=== PATIENT | male | born 1950 | race Caucasian/White ===

== ENCOUNTER → 2016-10-29 | Outpatient (CLI) | payer MEDICARE, OTHER ==
--- NOTE | 2016-10-29 10:53 | XR ---
EXAMINATION TYPE: XR chest 2V DATE OF EXAM: 10/29/2016 10:48 AM COMPARISON: April 27, 2016 HISTORY: Shortness of breath TECHNIQUE: Frontal and lateral views of the chest are obtained. FINDINGS: Scattered senescent parenchymal changes noted. Hyperinflation compatible with COPD. No evidence for infiltrate. No evidence for atelectasis. Heart size is stable. Mediastinal structures are stable and grossly unremarkable. No evidence for hilar prominence. Degenerative changes dorsal spine. IMPRESSION: 1. No evidence for acute pulmonary disease.
== END | disposition home or self-care (01) ==
LOC: RADXRMAIN 10:36
PROVIDERS: ATTEND Nurse Practitioner Family
DX: J20.9 Acute bronchitis, unspecified (principal); F17.210 Nicotine dependence, cigarettes, uncomplicated
CPT/HCPCS: 71020

== ENCOUNTER → 2016-12-04 | Outpatient (CLI) | payer MEDICARE ==
--- NOTE | 2016-12-04 14:21 | MR ---
EXAMINATION TYPE: MR lumbar spine wo con DATE OF EXAM: 12/04/2016 1:23 PM COMPARISON: NONE HISTORY: Low back pain and lumbosacral radiculopathy per order. Low back pain radiating into right le g for 6 months per patient. TECHNIQUE: Multiplanar, multisequence imaging of the lumbar spine is performed without IV contrast. FINDINGS: Sagittal images of the lumbar spine show vertebral body heights and alignment to appear sat isfactory. Multilevel disc desiccation is seen with relative sparing of L1-L2 level. There is mild mu ltilevel disc space narrowing with sparing of L1-L2 level. Mild to moderate disc space narrowing L4-L 5 level is seen. Posterior disc herniation effacing anterior thecal sac is noted at this level on sag ittal images. There is increased signal posteriorly consistent with annular tear at L5-S1 level. The conus medullaris is normal in position and signal ending at inferior L1 vertebral body level. Some s cattered small hemangiomas are redemonstrated. Axial images at the T12-L1 level shows mild broad disc bulge and mild facet degenerative changes. The re is mild effacement anterior thecal sac on axial image 28. Bilateral neural foramina are felt paten t. Axial images at the L1-L2 level show mild facet degenerative changes bilaterally otherwise are felt w ithin normal limits. Axial images at L2-L3 level show mild facet degenerative changes bilaterally. There is mild to modera te broad-based posterior disc protrusion. This effaces the anterior thecal sac with mild to moderate right as well as mild left-sided neural foraminal narrowing. Some encroachment on right L2 nerve is s uspected along the posterior aspect due to facet arthropathy seen best on sagittal image 10. Axial images at the L3-L4 level show mild broad disc bulge mildly effacing anterior thecal sac. Mild facet degenerative changes and ligamentum flavum hypertrophy are present. Mild bilateral anterior inf erior neural foraminal narrowing is seen. Axial images at L4-L5 level show mild to moderate facet degenerative changes bilaterally. There is mo derate to severe broad disc bulge effacing anterior thecal sac on axial image 7. There is moderate bi lateral anterior inferior neural foraminal narrowing at this level identified. Axial images at L5-S1 level show mild to moderate facet degenerative changes bilaterally. There is br oad-based right paracentral disc protrusion mildly effacing the anterior thecal sac. Bilateral neural foramina are patent. Increased T2 signal right L5 nerve on sagittal image 10 is of uncertain signifi cance. There are few round T2 hyperintense lesions scattered throughout the left kidney felt to reflect simp le cysts. There is some ectasia to the abdominal aorta with eccentric mural thrombus. Mild aneurysmal change measuring up to 3.1 cm in diameter seen on axial image 20. IMPRESSION: Multilevel degenerative changes throughout the lumbar spine as detailed above with most p ronounced spinal canal effacement or stenosis noted at L4-L5 level. Note is made of ectasia with foca l 3.1 cm aneurysm to the abdominal aorta.
== END | disposition home or self-care (01) ==
LOC: RADMRIMAIN 12:33
PROVIDERS: ATTEND Nurse Practitioner Family
DX: M47.816 Spondylosis without myelopathy or radiculopathy, lumbar region (principal)
CPT/HCPCS: 72148

== ENCOUNTER 2017-02-21 12:36 | Inpatient (IN) | payer MEDICARE ==
[2017-02-21] MEDS ORDERED: methylPREDNISolone SOD SUCCI 125 MG/2 ML VIAL IV STA (13:44)
[2017-02-21] MEDS ORDERED: ALBUTEROL NEBULIZED 2.5 MG/3 ML INHALATION STA (13:44)
--- NOTE | 2017-02-21 13:49 | ED ---
General Adult HPI - General Chief complaint: Shortness of Breath Stated complaint: SOB Time Seen by Provider: 02/21/17 13:25 Source: patient, RN notes reviewed Mode of arrival: ambulatory Limitations: no limitations - History of Present Illness Initial comments: This is a 66-year-old male with past medical history significant for COPD who continues to smoke. Patient comes in because he had difficulty breathing last 2 days he states is getting progressively worse. Patient states she is coughing and is positive sputum production. Patient denies any chest pain or palpitations. Patient denies any fever chills. Patient denies any abdominal pain patient denies nausea vomiting diarrhea. Patient denies headache patient denies any focal numbness or weakness. Patient denies any lightheadedness dizziness or near syncopal episode. Patient denies any recent injury or trauma. - Related Data Home Medications Medication Instructions Recorded Confirmed Valsartan [Diovan] 80 mg PO DAILY 04/27/16 02/21/17 ALPRAZolam 1 mg PO HS 04/28/16 02/21/17 Albuterol Sulfate [Proair Hfa] 2 puff INHALATION RT-Q4H PRN 04/28/16 02/21/17 Allergies Allergy/AdvReac Type Severity Reaction Status Date / Time No Known Allergies Allergy Verified 02/21/17 14:28 Review of Systems ROS Statement: Those systems with pertinent positive or pertinent negative responses have been documented in the HPI. ROS Other: All systems not noted in ROS Statement are negative. Past Medical History Past Medical History: COPD, Hypertension Additional Past Medical History / Comment(s): not currently taking BP med History of Any Multi-Drug Resistant Organisms: None Reported Past Surgical History: No Surgical Hx Reported Past Anesthesia/Blood Transfusion Reactions: No Reported Reaction Additional Past Anesthesia/Blood Transfusion Reaction / Comment(s): never had anesthesia, no family problems Past Psychological History: Anxiety Smoking Status: Current every day smoker Past Alcohol Use History: None Reported Past Drug Use History: None Reported - Past Family History Mother Family Medical History: No Reported History Father Family Medical History: Myocardial Infarction ([place]) Additional Family Medical History / Comment(s): of heart attack; pt states he si the oldest male to live in his family General Exam - General Exam Comments Initial Comments: GENERAL: Patient is well-developed and well-nourished. Patient is nontoxic and well- hydrated and is in mild distress. ENT: Neck is soft and supple. No significant lymphadenopathy is noted. Oropharynx is clear. Moist mucous membranes. Neck has full range of motion without eliciting any pain. EYES: The sclera were anicteric and conjunctiva were pink and moist. Extraocular movements were intact and pupils were equal round and reactive to light. Eyelids were unremarkable. PULMONARY: Patient has diffuse expiratory wheezing CARDIOVASCULAR: There is a regular rate and rhythm without any murmurs gallops or rubs. ABDOMEN: Soft and nontender with normal bowel sounds. No palpable organomegaly was noted. There is no palpable pulsatile mass. SKIN: Skin is clear with no lesions or rashes and otherwise unremarkable. NEUROLOGIC: Patient is alert and oriented x3. Cranial nerves II through XII are grossly intact. Motor and sensory are also intact. Normal speech, volume and content. Symmetrical smile. MUSCULOSKELETAL: Normal extremities with adequate strength and full range of motion. No lower extremity swelling or edema. No calf tenderness. LYMPHATICS: No significant lymphadenopathy is noted PSYCHIATRIC: Normal psychiatric evaluation. Normal interpersonal interactions appears functionally intact in deals appropriately with others. No signs of depression. No signs of anxiety. Limitations: no limitations Course Vital Signs 02/21/17 02/21/17 02/21/17 13:24 13:45 14:05 Temperature 97.8 F Pulse Rate 93 96 97 Respiratory 22 Rate Blood Pressure 161/88 O2 Sat by Pulse 94 L Oximetry 02/21/17 02/21/17 14:25 15:12 Temperature Pulse Rate 101 H Respiratory 18 Rate Blood Pressure 134/83 O2 Sat by Pulse 92 L Oximetry Medical Decision Making - Medical Decision Making After 3 consecutive breathing treatments patient was feeling considerably better but still satting in the upper 80s and low 90s on room air. I gave the patient Solu-Medrol as well. Patient states he is feeling considerably better but he still continuing to wheeze. Chest x-ray shows no acute normalities. I spoke with Dr. Culver admitted the patient and I wrote admitting orders. Continue to breathing she was discharged on a floor. - Lab Data Result diagrams: 02/21/17 13:51 02/21/17 13:51 Lab Results 02/21/17 02/21/17 02/21/17 Range/Units 13:51 13:51 13:51 WBC 6.2 (3.8-10.6) k/uL RBC 4.84 (4.30-5.90) m/uL Hgb 14.9 (13.0-17.5) gm/dL Hct 45.2 (39.0-53.0) % MCV 93.4 (80.0-100.0) fL MCH 30.8 (25.0-35.0) pg MCHC 33.0 (31.0-37.0) g/dL RDW 14.4 (11.5-15.5) % Plt Count 247 (150-450) k/uL Neutrophils % 54 % Lymphocytes % 26 % Monocytes % 7 % Eosinophils % 11 % Basophils % 1 % Neutrophils # 3.3 (1.3-7.7) k/uL Lymphocytes # 1.6 (1.0-4.8) k/uL Monocytes # 0.4 (0-1.0) k/uL Eosinophils # 0.7 (0-0.7) k/uL Basophils # 0.1 (0-0.2) k/uL PT (9.0-12.0) sec INR (<1.1) APTT (22.0-30.0) sec Sodium 141 (137-145) mmol/L Potassium 4.4 (3.5-5.1) mmol/L Chloride 107 (98-107) mmol/L Carbon Dioxide 25 (22-30) mmol/L Anion Gap 9 mmol/L BUN 17 (9-20) mg/dL Creatinine 0.94 (0.66-1.25) mg/dL Est GFR (MDRD) Af Amer >60 (>60 ml/min/1.73 sqM) Est GFR (MDRD) Non-Af >60 (>60 ml/min/1.73 sqM) Glucose 89 (74-99) mg/dL Calcium 9.4 (8.4-10.2) mg/dL Magnesium 2.3 (1.6-2.3) mg/dL Total Bilirubin 0.8 (0.2-1.3) mg/dL AST 25 (17-59) U/L ALT 33 (21-72) U/L Alkaline Phosphatase 106 (38-126) U/L Total Creatine Kinase 88 (55-170) U/L CK-MB (CK-2) 1.5 (0.0-2.4) ng/mL CK-MB (CK-2) Rel Index 1.7 Troponin I <0.012 (0.000-0.034) ng/mL Total Protein 7.4 (6.3-8.2) g/dL Albumin 4.1 (3.5-5.0) g/dL 02/21/17 Range/Units 13:51 WBC (3.8-10.6) k/uL RBC (4.30-5.90) m/uL Hgb (13.0-17.5) gm/dL Hct (39.0-53.0) % MCV (80.0-100.0) fL MCH (25.0-35.0) pg MCHC (31.0-37.0) g/dL RDW (11.5-15.5) % Plt Count (150-450) k/uL Neutrophils % % Lymphocytes % % Monocytes % % Eosinophils % % Basophils % % Neutrophils # (1.3-7.7) k/uL Lymphocytes # (1.0-4.8) k/uL Monocytes # (0-1.0) k/uL Eosinophils # (0-0.7) k/uL Basophils # (0-0.2) k/uL PT 10.7 (9.0-12.0) sec INR 1.1 (<1.1) APTT 26.9 (22.0-30.0) sec Sodium (137-145) mmol/L Potassium (3.5-5.1) mmol/L Chloride (98-107) mmol/L Carbon Dioxide (22-30) mmol/L Anion Gap mmol/L BUN (9-20) mg/dL Creatinine (0.66-1.25) mg/dL Est GFR (MDRD) Af Amer (>60 ml/min/1.73 sqM) Est GFR (MDRD) Non-Af (>60 ml/min/1.73 sqM) Glucose (74-99) mg/dL Calcium (8.4-10.2) mg/dL Magnesium (1.6-2.3) mg/dL Total Bilirubin (0.2-1.3) mg/dL AST (17-59) U/L ALT (21-72) U/L Alkaline Phosphatase (38-126) U/L Total Creatine Kinase (55-170) U/L CK-MB (CK-2) (0.0-2.4) ng/mL CK-MB (CK-2) Rel Index Troponin I (0.000-0.034) ng/mL Total Protein (6.3-8.2) g/dL Albumin (3.5-5.0) g/dL Critical Care Time Critical Care Time: Yes Total Critical Care Time: 35 Disposition Clinical Impression: COPD with acute exacerbation Disposition: ADMITTED IP TO THIS [facility] Time of Disposition: 15:25
[2017-02-21 14:11] LABS: Basophils # (A) 0.1 k/uL (0-0.2); Basophils % (A) 1 %; CH 31.5; CHCM 33.9; Eosinophils # (A) 0.7 k/uL (0-0.7); Eosinophils % (A) 11 %; HCT 45.2 % (39.0-53.0); HDW 2.66; HGB 14.9 gm/dL (13.0-17.5); Luc # (Auto) 0.14; Luc % (Auto) 2; Lymphocytes # (A) 1.6 k/uL (1.0-4.8); Lymphocytes % (A) 26 %; MCH 30.8 pg (25.0-35.0); MCV 93.4 fL (80.0-100.0); Mean Platelet Volume 7.5; Monocytes # (A) 0.4 k/uL (0-1.0); Monocytes % (A) 7 %; Neutrophils # (A) 3.3 k/uL (1.3-7.7); Neutrophils % (A) 54 %; RBC 4.84 m/uL (4.30-5.90); RDW 14.4 % (11.5-15.5); WBC 6.2 k/uL (3.8-10.6); WBC (Perox) 6.07
[2017-02-21 14:18] LABS: ALT 33 U/L (21-72); AST 25 U/L (17-59); Alkaline Phosphatase 106 U/L (38-126); Anion Gap 9 mmol/L; Blood Urea Nitrogen 17 mg/dL (9-20); Calcium 9.4 mg/dL (8.4-10.2); Carbon Dioxide 25 mmol/L (22-30); Chloride 107 mmol/L (98-107); Glucose 89 mg/dL (74-99); Magnesium 2.3 mg/dL (1.6-2.3); Non-African American GFR(MDRD) >60 (>60 ml/min/1.73 sqM); Potassium 4.4 mmol/L (3.5-5.1); Sodium 141 mmol/L (137-145); Total Bilirubin 0.8 mg/dL (0.2-1.3); Total Protein 7.4 g/dL (6.3-8.2)
[2017-02-21 14:20] LABS: INR 1.1 (<1.1); Partial Thromboplastin Time 26.9 sec (22.0-30.0); Prothrombin Time 10.7 sec (9.0-12.0)
[2017-02-21 14:29] LABS: Creatine Kinase 88 U/L (55-170)
[2017-02-21 14:42] LABS: Creatine Kinase MB 1.5 ng/mL (0.0-2.4); Troponin I <0.012 ng/mL (0.000-0.034)
--- NOTE | 2017-02-21 15:16 | XR ---
EXAMINATION TYPE: XR chest 2V DATE OF EXAM: 02/21/2017 3:13 PM COMPARISON: 10/29/2016 HISTORY: Shortness of breath TECHNIQUE: Frontal and lateral views of the chest are obtained. FINDINGS: Scattered senescent parenchymal changes noted. Hyperinflation compatible with COPD. No evidence for infiltrate. No evidence for atelectasis. Heart size is stable. Mediastinal structures are stable and grossly unremarkable. No evidence for hilar prominence. Degenerative changes dorsal spine. IMPRESSION: 1. No evidence for acute pulmonary disease.
[2017-02-21] MEDS ORDERED: IPRATROPIUM-ALBUTEROL 3 ML NEB INHALATION PRN (15:26)
[2017-02-21 17:05] LABS: Glucose,Whole Blood 217 mg/dL (75-99)
[2017-02-21 17:21] VITALS: BMI 24.4
[2017-02-21] MEDS ORDERED: ALBUTEROL NEBULIZED 2.5 MG/3 ML INHALATION PRN (17:31)
[2017-02-21] MEDS: INSULIN LISPRO (humaLOG) 300 UNIT/3 ML VIAL SQ SCH ×2 (17:50→21:53)
[2017-02-21 20:57] LABS: Glucose,Whole Blood 181 mg/dL (75-99)
[2017-02-21 21:15] LABS: Hemoglobin A1C 5.7 % (4.2-6.1)
[2017-02-21] MEDS: ALPRAZolam 0.5 MG TAB PO SCH (21:53)
[2017-02-21] MEDS: methylPREDNISolone SOD SUCCI 125 MG/2 ML VIAL IV SCH (23:08)
[2017-02-22] MEDS: methylPREDNISolone SOD SUCCI 125 MG/2 ML VIAL IV SCH ×4 (06:29→23:36)
[2017-02-22] MEDS: INSULIN LISPRO (humaLOG) 300 UNIT/3 ML VIAL SQ SCH ×4 (07:57→21:13)
[2017-02-22] MEDS: VALSARTAN 80 MG TAB PO SCH (07:57)
[2017-02-22] MEDS: NICOTINE 21MG/24HR PATCH TRANSDERM SCH (07:59)
[2017-02-22 08:02] LABS: Glucose,Whole Blood 171 mg/dL (75-99)
[2017-02-22] MEDS: SYMBICORT 160-4.5 MCG INHALER INHALATION SCH ×2 (09:14→20:41)
[2017-02-22 11:35] LABS: Glucose,Whole Blood 142 mg/dL (75-99)
--- NOTE | 2017-02-22 15:21 | P.HPIM ---
History of Present Illness H&P Date: 02/22/17 Chief Complaint: Shortness of breath Patient is a 66-year-old male, patient of Dr. Culver in the outpatient setting, with medical history significant for COPD, hypertension, and nicotine dependence. Patient presented to the emergency department with chief complaint of difficulty breathing increasing over the last 2 days associated with productive cough. No history of recent illness, fevers, chills , chest pain, nausea, vomiting, abdominal pain, diarrhea, constipation. Chest x -ray without evidence of acute cardiopulmonary process. In the emergency department, patient was given 3 consecutive breathing treatments but still had oxygen saturations in the upper 80s and low 90s on room air. Patient was started on Solu-Medrol and admitted to the medical floor for IV steroids and oxygen supplementation. Upon examination, patient reports improvement in breathing. Patient complains of minimal productive cough. Oxygen saturation 94% on room air. Afebrile. Hemodynamically stable. Past Medical History Past Medical History: COPD, Hypertension Additional Past Medical History / Comment(s): not currently taking BP med History of Any Multi-Drug Resistant Organisms: None Reported Past Surgical History: No Surgical Hx Reported Additional Past Surgical History / Comment(s): jaw surgery long time ago Past Anesthesia/Blood Transfusion Reactions: No Reported Reaction Additional Past Anesthesia/Blood Transfusion Reaction / Comment(s): never had anesthesia, no family problems Past Psychological History: Anxiety Smoking Status: Current every day smoker Past Alcohol Use History: None Reported Past Drug Use History: None Reported - Past Family History Mother Family Medical History: No Reported History Father Family Medical History: Myocardial Infarction ([place]) Additional Family Medical History / Comment(s): of heart attack; pt states he si the oldest male to live in his family Medications and Allergies Home Medications Medication Instructions Recorded Confirmed Type Valsartan [Diovan] 80 mg PO DAILY 04/27/16 02/21/17 History ALPRAZolam 1 mg PO HS 04/28/16 02/21/17 History Albuterol Sulfate [Proair Hfa] 2 puff INHALATION RT-Q4H PRN 04/28/16 02/21/17 History Allergies Allergy/AdvReac Type Severity Reaction Status Date / Time No Known Allergies Allergy Verified 02/21/17 17:25 Physical Exam Vitals: Vital Signs Temp Pulse Pulse Resp BP BP Pulse Ox 02/22/17 09:15 94 L 02/22/17 07:00 97.0 F L 83 16 136/93 92 L 02/21/17 23:00 97.4 F L 86 19 99/67 90 L 02/21/17 16:55 97.1 F L 89 16 151/94 94 L 02/21/17 16:35 97.2 F L 88 18 141/100 92 L Intake and Output 02/22/17 02/22/17 02/22/17 06:59 14:59 22:59 Other: # Voids 1 3 GENERAL: Pt awake and alert, well-appearing, well-nourished, and in no acute distress. HEAD: Atraumatic, normocephalic. EYES: Pupils equal, round, and reactive to light, extraocular movements intact, sclera anicteric, conjunctiva are normal. ENT:Moist mucous membranes. NECK: Supple without lymphadenopathy or JVD. LUNGS: Breath sounds diminished with faint expiratory wheezing to auscultation bilaterally. HEART: Heart S1, S2, no S3 or S4. Regular rate and rhythm. No murmurs, rubs or gallops. ABDOMEN: Soft, nontender, nondistended, normoactive bowel sounds. No guarding, no rebound. No masses or organomegaly appreciated. EXTREMITIES: 2+ peripheral pulses. No edema. No calf tenderness. NEUROLOGICAL: Pt oriented x 3. No focal deficits noted. Strength and sensation grossly intact. PSYCH: Normal mood, normal affect. SKIN: Warm, dry, intact. Normal turgor. No rashes or lesions. Results CBC & Chem 7: 02/21/17 13:51 02/21/17 13:51 Labs: Abnormal Lab Results - Last 24 Hours (Table) 02/21/17 02/21/17 02/22/17 Range/Units 17:03 20:55 07:33 POC Glucose (mg/dL) 217 H 181 H 171 H (75-99) mg/dL 02/22/17 Range/Units 11:16 POC Glucose (mg/dL) 142 H (75-99) mg/dL Chest x-ray: report reviewed Thrombosis Risk Factor Assmnt - DVT/VTE Prophylaxis DVT/VTE Prophylaxis: Pharmacologic Prophylaxis ordered - Choose All That Apply Each Factor Represents 1 point: Abnormal pulmonary function (COPD) Each Risk Factor Represents 2 Points: Age 61-74 years Thrombosis Risk Factor Assessment Total Risk Factor Score: 3 Thrombosis Risk Factor Assessment Level: Moderate Risk Assessment and Plan Plan: Impression and plan: 1. Acute exacerbation of COPD. Chest x-ray without evidence of acute cardiopulmonary process. Continue nebulized updraft treatments, continue IV steroids, continue Pulmicort, continue supplemental oxygen to keep oxygen saturation greater than 92%. 2. Hypertension. Continue Diovan. 3. Nicotine dependence. Continue nicotine patch. Smoking cessation encouraged. Continue to monitor patient. Continue current medications. Continue DVT prophylaxis. Possible discharge in next 24 hours. The above impression and plan have been discussed and directed by Dr. Arriaza. Román WRIGHT acting as scribe for Dr. Arriaza.
[2017-02-22 17:00] LABS: Glucose,Whole Blood 139 mg/dL (75-99)
[2017-02-22 21:05] LABS: Glucose,Whole Blood 139 mg/dL (75-99)
[2017-02-22] MEDS: ALPRAZolam 0.5 MG TAB PO SCH (21:17)
[2017-02-23] MEDS: methylPREDNISolone SOD SUCCI 125 MG/2 ML VIAL IV SCH ×2 (06:26→11:05)
[2017-02-23 07:34] LABS: Glucose,Whole Blood 117 mg/dL (75-99)
[2017-02-23] MEDS: INSULIN LISPRO (humaLOG) 300 UNIT/3 ML VIAL SQ SCH ×2 (07:40→11:54)
[2017-02-23] MEDS: NICOTINE 21MG/24HR PATCH TRANSDERM SCH (07:40)
[2017-02-23] MEDS: VALSARTAN 80 MG TAB PO SCH (07:40)
[2017-02-23 08:02] VITALS: BP 134/96; PULSE 79; RESP 18; TEMP 97
[2017-02-23 12:00] LABS: Glucose,Whole Blood 114 mg/dL (75-99)
[2017-02-23] MEDS: SYMBICORT 160-4.5 MCG INHALER INHALATION SCH (12:25)
--- NOTE | 2017-02-23 14:01 | P.DS ---
Providers Date of admission: 02/21/17 15:26 Expected date of discharge: 02/23/17 Attending physician: Bernardo Arriaza Consults: none Primary care physician: Eris Culver Hospital Course: General: [Patient awake, alert and oriented times 3. Patient in no acute distress.] HEENT: [PERRL. EOMI. No pharyngeal erythema or exudate.] Neck: [No adenopathy.] Cardiac: [Heart regular in rate and rhythm. No S3. No S4. No clicks, rubs. No murmur.] Lungs: [Clear to auscultation bilaterally, right basilar crackles Abdomen: [No mass. No organomegaly. Bowel sounds presnt and normoactive in all 4 quadrants.] Extremes: [No edema no cyanosis no claudication normal pulses] : [] Musculoskeletal: [No joint erythema, edema or tenderness.] Skin: [No rash.] Neurologic: [No lateralizing deficits. CN II - XII grossly intact.] Lymphatic: [No adenopathy.] Patient Condition at Discharge: Good Plan - Discharge Summary New Discharge Prescriptions: Budesonide-Formot 160-4.5 Mcg [Symbicort 160-4.5 Mcg Inhaler] 2 puff INHALATION RT-BID #1 vial predniSONE 0 mg PO DIRECTED #30 tab Discharge Medication List Valsartan [Diovan] 80 mg PO DAILY 04/27/16 [History] ALPRAZolam 1 mg PO HS 04/28/16 [History] Albuterol Sulfate [Proair Hfa] 2 puff INHALATION RT-Q4H PRN 04/28/16 [History] Budesonide-Formot 160-4.5 Mcg [Symbicort 160-4.5 Mcg Inhaler] 2 puff INHALATION RT-BID #1 vial 02/22/17 [Rx] predniSONE 0 mg PO DIRECTED #30 tab 02/22/17 [Rx] Follow up Appointment(s)/Referral(s): Eris Culver MD [Primary Care Provider] - 1-2 days Patient Instructions/Handouts: How to Stop Smoking (DC), COPD (Chronic Obstructive Pulmonary Disease) (DC) Discharge Disposition: HOME SELF-CARE
== END 2017-02-23 14:15 | disposition home or self-care (01) | DRG 192 ==
LOC: EC 12:36 → 4MS4W 15:26
PROVIDERS: ADMIT Family Medicine; ATTEND Family Medicine
DX: J44.1 Chronic obstructive pulmonary disease with (acute) exacerbation (principal); I10 Essential (primary) hypertension; F41.9 Anxiety disorder, unspecified; F17.200 Nicotine dependence, unspecified, uncomplicated; Z82.49 Family history of ischemic heart disease and other diseases of the circulatory system; Z79.899 Other long term (current) drug therapy
CPT/HCPCS: 36415; 71020; 80053; 82550; 82553; 83036; 83735; 84484; 85025; 85610; 85730; 87040; 94640; 94644; 96374; 99291

== ENCOUNTER 2017-04-02 08:53 | Day surgery (SDC) | payer MEDICARE ==
[2017-03-28 13:10] VITALS: BMI 24.4
[~2017-04-02 08:53] MED LIST: LACTATED RINGERS 1,000 ML IV SCH; LIDOCAINE 1% 20 ML VIAL (10MG/ML) FOR IV START INTRADERMA PRN; ONDANSETRON 4 MG/2 ML VIAL IVP PRN
[2017-04-02] MEDS: CYCLOPENTOLATE 1% OPHTH SOLN 2 ML BTL OP ONE ×3 (09:32→09:53)
[2017-04-02 09:33] VITALS: TEMP 98.3
[2017-04-02] MEDS: FLURBIPROFEN 0.03% OPHTH DROPS 2.5 ML BTL OP ONE ×3 (09:35→09:57)
[2017-04-02] MEDS: PHENYLEPHRINE 10% OPHTH DROPS 5 ML BTL OP ONE ×3 (09:39→10:00)
[2017-04-02] MEDS ORDERED: LIDOCAINE 1% INJ 10MG/ML (20 ML MDV) ONE (10:20)
[2017-04-02] MEDS ORDERED: PROPOFOL 10 MG/ML 20 ML VIAL IV ONE (10:20)
[2017-04-02] MEDS ORDERED: EPINEPHrine (PF) 0.5 ML in BALANCED SALT IRRIG SOLN COMB2 500 ML IRRIGATION ONE (10:27)
[2017-04-02] MEDS ORDERED: BALANCED SALT IRRIG SOLN COMB2 15 ML IRRIG.SOLN IRRIGATION ONE (10:29)
[2017-04-02] MEDS ORDERED: HYALURONATE SODIUM INTRAOCULAR 1 EACH SYRINGE (10MG/ML) INTRAOCULA ONE (10:30)
--- NOTE | 2017-04-02 10:45 | P.OP ---
Date of Procedure: 04/02/17 Preoperative Diagnosis: Postoperative Diagnosis: Procedure(s) Performed: PREOPERATIVE DIAGNOSIS: Cataract, right eye. POSTOPERATIVE DIAGNOSIS: Cataract, right eye. OPERATION: Phacoemulsification cataract, right eye. DESCRIPTION OF PROCEDURE: The patient was taken to the preoperative holding area. Intravenous Propofol was given so as to bring about adequate sedation. The following mixture was given for local anesthesia: 5 mL of 2% lidocaine, 5 mL of 0.75% Marcaine, and 1 mL of Wydase. Approximately 4 mL was injected in the retrobulbar space of the surgical eye. Additional 1 mL was then directed to the temporal area of the surgical eye. This was performed to allow adequate neurological block of the facial muscles. The patient was revived and then taken into the operative room. The patient was prepped and draped in the usual sterile manner for the operative eye. A lid speculum was put into position. The conjunctiva was resected back from the limbus in the 12 o'clock position. Bleeding was controlled with electrocautery. A #69 blade was then used and a half-thickness scleral incision approximately 1-mm posterior to the limbus was made on bare sclera. This was shelved in the clear cornea using a crescent knife. Next a 15-degree blade was used to make a stab incision at the 3 o' clock position at the corneolimbal interface. Keratome blade was then used and the superior wound was extended into the anterior chamber. Viscoelastic was injected into the anterior chamber and to maintain its form. Next, a cystotome was used and a continuous anterior capsulotomy was made without difficulty. Hydrodissection using a blunt cannula and BSS was performed. Phaco probe was then employed and a groove extending from 12 to 6 o'clock in the lens was created. A Mitch wand was used through the stab incision so as to perform a divide and conquer technique. Next an irrigation aspiration probe was utilized and any residual cortex was removed from the eye. Again, viscoelastic was injected into the anterior chamber. An Jose Daniel posterior chamber lens implant was placed in the cartridge and injected into the anterior chamber without difficulty. The xMattersey hook was utilized to spin the lens into position and this was again performed without any difficulty. The irrigation and aspiration probe was again employed and any residual viscoelastic was removed from the eye. Then BSS was injected into the limbal stab incision and the anterior chamber re-inflated. The conjunctiva was reapproximated using electrocautery. One drop of 0.25% Timoptic was placed over the corneal along with TobraDex ophthalmic ointment. Two sterile patches and a Richter eye shield were taped into position. The patient was transported to the recovery room in stable condition. Implants: Pathology: none sent Condition: stable Disposition: same day Indications for Procedure: Operative Findings: Description of Procedure:
[2017-04-02 11:04] VITALS: RESP 16
[2017-04-02 11:06] VITALS: BP 164/89; PULSE 66
[2017-04-02] MEDS ORDERED: TIMOLOL 0.5% OPHTH SOLN (PF) 0.2 ML DROPERETTE OP ONE (23:00)
[2017-04-02] MEDS ORDERED: BUPIVACAINE (PF) 0.75% 5 ML, LIDOCAINE 4% (PF) 5 ML, HYALURONIDASE, HUMAN RECOMB 150 UNIT MISCELLANE ONE ×3 (23:00)
[2017-04-02] MEDS ORDERED: GENTAMICIN/PREDNISOL AC OPHTH OINT 3.5GM OPHTHALMIC ONE (23:00)
== END 2017-04-02 11:22 | disposition home or self-care (01) ==
LOC: OR 08:53
PROVIDERS: ATTEND Ophthalmology
DX: H26.9 Unspecified cataract (principal); I10 Essential (primary) hypertension; F41.9 Anxiety disorder, unspecified; J44.9 Chronic obstructive pulmonary disease, unspecified; F17.200 Nicotine dependence, unspecified, uncomplicated; Z79.51 Long term (current) use of inhaled steroids; Z79.899 Other long term (current) drug therapy
CPT/HCPCS: 66984; V2632; J2001 ×2; J3470; J0171; J2704

== ENCOUNTER 2017-05-21 09:53 | Day surgery (SDC) | payer MEDICARE ==
[2017-05-14 16:29] VITALS: BMI 24.4
[~2017-05-21 09:53] MED LIST changes: -LIDOCAINE 1% 20 ML VIAL (10MG/ML) FOR IV START INTRADERMA PRN; -ONDANSETRON 4 MG/2 ML VIAL IVP PRN
[2017-05-21] MEDS: CYCLOPENTOLATE 1% OPHTH SOLN 2 ML BTL OP ONE ×3 (10:28→10:46)
[2017-05-21] MEDS: FLURBIPROFEN 0.03% OPHTH DROPS 2.5 ML BTL OP ONE ×3 (10:31→10:49)
[2017-05-21] MEDS: PHENYLEPHRINE 10% OPHTH DROPS 5 ML BTL OP ONE ×3 (10:34→10:53)
[2017-05-21 10:50] VITALS: TEMP 96.8
[2017-05-21] MEDS ORDERED: BALANCED SALT IRRIG SOLN COMB2 15 ML IRRIG.SOLN IRRIGATION ONE (11:24)
[2017-05-21] MEDS ORDERED: HYALURONATE SODIUM INTRAOCULAR 1 EACH SYRINGE (10MG/ML) INTRAOCULA ONE (11:24)
[2017-05-21] MEDS ORDERED: MIDAZOLAM 2 MG/2 ML VIAL ONE (11:25)
[2017-05-21] MEDS ORDERED: PROPOFOL 10 MG/ML 20 ML VIAL IV ONE (11:25)
[2017-05-21] MEDS ORDERED: fentaNYL (PF) 50 MCG/ML 2 ML AMP ONE (11:25)
[2017-05-21] MEDS ORDERED: EPINEPHrine (PF) 0.5 ML in BALANCED SALT IRRIG SOLN COMB2 500 ML IRRIGATION ONE (11:28)
--- NOTE | 2017-05-21 11:46 | P.OP ---
Date of Procedure: 05/21/17 Preoperative Diagnosis: Postoperative Diagnosis: Procedure(s) Performed: PREOPERATIVE DIAGNOSIS: Cataract, left eye. POSTOPERATIVE DIAGNOSIS: Cataract, left eye. OPERATION: Phacoemulsification cataract, left eye. DESCRIPTION OF PROCEDURE: The patient was taken to the preoperative holding area. Intravenous Propofol was given so as to bring about adequate sedation. The following mixture was given for local anesthesia: 5 mL of 2% lidocaine, 5 mL of 0.75% Marcaine, and 1 mL of Wydase. Approximately 4 mL was injected in the retrobulbar space of the surgical eye. Additional 1 mL was then directed to the temporal area of the surgical eye. This was performed to allow adequate neurological block of the facial muscles. The patient was revived and then taken into the operative room. The patient was prepped and draped in the usual sterile manner for the operative eye. A lid speculum was put into position. The conjunctiva was resected back from the limbus in the 12 o'clock position. Bleeding was controlled with electrocautery. A #69 blade was then used and a half-thickness scleral incision approximately 1-mm posterior to the limbus was made on bare sclera. This was shelved in the clear cornea using a crescent knife. Next a 15-degree blade was used to make a stab incision at the 3 o' clock position at the corneolimbal interface. Keratome blade was then used and the superior wound was extended into the anterior chamber. Viscoelastic was injected into the anterior chamber and to maintain its form. Next, a cystotome was used and a continuous anterior capsulotomy was made without difficulty. Hydrodissection using a blunt cannula and BSS was performed. Phaco probe was then employed and a groove extending from 12 to 6 o'clock in the lens was created. A Mitch wand was used through the stab incision so as to perform a divide and conquer technique. Next an irrigation aspiration probe was utilized and any residual cortex was removed from the eye. Again, viscoelastic was injected into the anterior chamber. An Jose Daniel posterior chamber lens implant was placed in the cartridge and injected into the anterior chamber without difficulty. The [place] hook was utilized to spin the lens into position and this was again performed without any difficulty. The irrigation and aspiration probe was again employed and any residual viscoelastic was removed from the eye. Then BSS was injected into the limbal stab incision and the anterior chamber re-inflated. The conjunctiva was reapproximated using electrocautery. One drop of 0.25% Timoptic was placed over the corneal along with TobraDex ophthalmic ointment. Two sterile patches and a Richter eye shield were taped into position. The patient was transported to the recovery room in stable condition. Implants: Pathology: none sent Condition: stable Disposition: same day Indications for Procedure: Operative Findings: Description of Procedure:
[2017-05-21 12:17] VITALS: BP 158/96; PULSE 69; RESP 18
[2017-05-21] MEDS ORDERED: BUPIVACAINE (PF) 0.75% 5 ML, LIDOCAINE 4% (PF) 5 ML, HYALURONIDASE, HUMAN RECOMB 150 UNIT MISCELLANE ONE ×3 (23:00)
[2017-05-21] MEDS ORDERED: GENTAMICIN/PREDNISOL AC OPHTH OINT 3.5GM OPHTHALMIC ONE (23:00)
[2017-05-21] MEDS ORDERED: TIMOLOL 0.5% OPHTH SOLN (PF) 0.2 ML DROPERETTE OP ONE (23:00)
== END 2017-05-21 12:28 | disposition home or self-care (01) ==
LOC: OR 09:53
PROVIDERS: ATTEND Ophthalmology
DX: H26.9 Unspecified cataract (principal); I10 Essential (primary) hypertension; J44.9 Chronic obstructive pulmonary disease, unspecified; F17.200 Nicotine dependence, unspecified, uncomplicated; F39 Unspecified mood [affective] disorder; Z79.51 Long term (current) use of inhaled steroids; Z79.899 Other long term (current) drug therapy
CPT/HCPCS: 66984; V2632; J2001; J2250; J3470; J0171; J3010; J2704

== ENCOUNTER 2017-05-21 15:01 | Observation (INO) | payer MEDICARE ==
[2017-05-21] MEDS ORDERED: IPRATROPIUM-ALBUTEROL 3 ML NEB INHALATION STA ×2 (15:26→16:40)
--- NOTE | 2017-05-21 15:31 | ED ---
General Adult HPI - General Chief complaint: Shortness of Breath Stated complaint: COPD Time Seen by Provider: 05/21/17 15:18 Source: patient, RN notes reviewed Mode of arrival: wheelchair Limitations: no limitations - History of Present Illness Initial comments: Patient 66-year-old male significant past medical history for COPD, who presents emergency room today with a chief complaint of "COPD exacerbation". Patient doesn't state that he has been feeling increased cough congestion and some tightness over the last 3-4 days. States doing breathing treatments at home. States he was trying follow-up family doctor to get a steroid shot which usually helps him but was unable to make an appointment today. Patient states he did have cataract surgery on the left eye this morning. Patient states after surgery try to 2 breathing treatment at home with little relief of the symptoms. Patient denies any recent fever, chills, back pain, abdominal pain, nausea or vomiting, numbness or tingling, dysuria or hematuria, constipation or diarrhea, headaches or visual changes, or any other complaints. - Related Data Home Medications Medication Instructions Recorded Confirmed Valsartan [Diovan] 80 mg PO DAILY 04/27/16 05/21/17 ALPRAZolam 1 mg PO HS 04/28/16 05/21/17 Albuterol Sulfate [Proair Hfa] 2 puff INHALATION RT-Q4H PRN 04/28/16 05/21/17 Allergies Allergy/AdvReac Type Severity Reaction Status Date / Time No Known Allergies Allergy Verified 05/21/17 15:28 Review of Systems ROS Statement: Those systems with pertinent positive or pertinent negative responses have been documented in the HPI. ROS Other: All systems not noted in ROS Statement are negative. Past Medical History Past Medical History: COPD, Eye Disorder, Hypertension Additional Past Medical History / Comment(s): cataracts History of Any Multi-Drug Resistant Organisms: None Reported Past Surgical History: No Surgical Hx Reported Additional Past Surgical History / Comment(s): jaw surgery. rt/lf cataract sx Past Anesthesia/Blood Transfusion Reactions: No Reported Reaction Additional Past Anesthesia/Blood Transfusion Reaction / Comment(s): , no family problems Past Psychological History: Anxiety Smoking Status: Current every day smoker Past Alcohol Use History: None Reported Past Drug Use History: None Reported - Past Family History Mother Family Medical History: No Reported History Father Family Medical History: Myocardial Infarction ([place]) Additional Family Medical History / Comment(s): of heart attack General Exam - General Exam Comments Initial Comments: General: The patient is awake and alert, in no distress, and does not appear acutely ill. Eye: Pupils are equal, round and reactive to light, extra-ocular movements are intact. No nystagmus. There is normal conjunctiva bilaterally. No signs of icterus. Ears, nose, mouth and throat: There are moist mucous membranes and no oral lesions. Neck: The neck is supple, there is no tenderness or JVD. Cardiovascular: There is a regular rate and rhythm. No murmur, rub or gallop is appreciated. Respiratory: Decreased lung sounds bilaterally with mild expiratory wheeze. respirations are non-labored, breath sounds are equal. No stridor, rales, or rhonchi. Musculoskeletal: Normal ROM, no tenderness. Strength 5/5. Sensation intact. Pulses equal bilaterally 2+. Neurological: A&O x 3. CN II-XII intact, There are no obvious motor or sensory deficits. Coordination appears grossly intact. Speech is normal. Skin: Skin is warm and dry and no rashes or lesions are noted. Psychiatric: Cooperative, appropriate mood & affect, normal judgment. Limitations: no limitations Course Vital Signs 05/21/17 05/21/17 05/21/17 15:05 15:41 15:52 Temperature 97.2 F L Pulse Rate 72 73 77 Respiratory 16 Rate Blood Pressure 184/97 O2 Sat by Pulse 95 Oximetry 05/21/17 05/21/17 05/21/17 16:37 17:16 17:30 Temperature Pulse Rate 72 77 Respiratory Rate Blood Pressure O2 Sat by Pulse 96 Oximetry Medical Decision Making - Medical Decision Making 66-year-old male presenting to the emergency room for COPD exacerbation. Did have Surgery this morning. Patient's shot dropper Dr. Steen was callled and confirmed that steriods are NOT contraindicated after his surgery. Patient says x-rays reviewed and shows no acute abnormalities. Patient had multiple breathing treatments here in the emergency room. Does admit to some improvement. Patient will be admitted to the hospital for COPD exacerbation continuing treatments and IV steroids. - Lab Data Result diagrams: 05/21/17 16:13 05/21/17 16:13 Lab Results 05/21/17 05/21/17 Range/Units 16:13 16:13 WBC 6.0 (3.8-10.6) k/uL RBC 4.59 (4.30-5.90) m/uL Hgb 14.5 (13.0-17.5) gm/dL Hct 41.7 (39.0-53.0) % MCV 90.7 (80.0-100.0) fL MCH 31.5 (25.0-35.0) pg MCHC 34.8 (31.0-37.0) g/dL RDW 13.9 (11.5-15.5) % Plt Count 190 (150-450) k/uL Neutrophils % 52 % Lymphocytes % 29 % Monocytes % 6 % Eosinophils % 11 % Basophils % 1 % Neutrophils # 3.1 (1.3-7.7) k/uL Lymphocytes # 1.7 (1.0-4.8) k/uL Monocytes # 0.4 (0-1.0) k/uL Eosinophils # 0.6 (0-0.7) k/uL Basophils # 0.0 (0-0.2) k/uL Sodium 142 (137-145) mmol/L Potassium 4.2 (3.5-5.1) mmol/L Chloride 108 H (98-107) mmol/L Carbon Dioxide 25 (22-30) mmol/L Anion Gap 9 mmol/L BUN 17 (9-20) mg/dL Creatinine 0.99 (0.66-1.25) mg/dL Est GFR (MDRD) Af Amer >60 (>60 ml/min/1.73 sqM) Est GFR (MDRD) Non-Af >60 (>60 ml/min/1.73 sqM) Glucose 78 (74-99) mg/dL Calcium 9.2 (8.4-10.2) mg/dL Magnesium 2.0 (1.6-2.3) mg/dL Total Bilirubin 0.6 (0.2-1.3) mg/dL AST 23 (17-59) U/L ALT 40 (21-72) U/L Alkaline Phosphatase 96 (38-126) U/L Total Protein 6.9 (6.3-8.2) g/dL Albumin 4.1 (3.5-5.0) g/dL Disposition Clinical Impression: COPD exacerbation Disposition: ADMITTED IP TO THIS HOSP Condition: Stable Referrals: Eris Culver MD [Primary Care Provider] - 1-2 days Time of Disposition: 17:34
[2017-05-21] MEDS ORDERED: methylPREDNISolone SOD SUCCI 125 MG/2 ML VIAL IV STA (15:39)
[2017-05-21 16:29] LABS: Basophils % (A) 1 %; CH 30.6; CHCM 33.9; Eosinophils # (A) 0.6 k/uL (0-0.7); Eosinophils % (A) 11 %; HCT 41.7 % (39.0-53.0); HDW 2.84; HGB 14.5 gm/dL (13.0-17.5); Luc # (Auto) 0.15; Luc % (Auto) 3; Lymphocytes # (A) 1.7 k/uL (1.0-4.8); Lymphocytes % (A) 29 %; MCH 31.5 pg (25.0-35.0); MCHC 34.8 g/dL (31.0-37.0); MCV 90.7 fL (80.0-100.0); Mean Platelet Volume 7.5; Monocytes # (A) 0.4 k/uL (0-1.0); Monocytes % (A) 6 %; Neutrophils # (A) 3.1 k/uL (1.3-7.7); Neutrophils % (A) 52 %; RBC 4.59 m/uL (4.30-5.90); RDW 13.9 % (11.5-15.5); WBC (Perox) 5.84
--- NOTE | 2017-05-21 16:29 | XR ---
EXAMINATION TYPE: XR chest 2V DATE OF EXAM: 05/21/2017 COMPARISON: Chest x-ray February 21, 2017. HISTORY: History of tobacco use and COPD with shortness of breath TECHNIQUE: Frontal and lateral views of the chest are obtained. FINDINGS: Underlying emphysematous change is redemonstrated. There is no focal air space opacity, pl eural effusion, or pneumothorax seen. The cardiac silhouette size is within normal limits. Ectatic t horacic aorta is redemonstrated The osseous structures are demineralized. IMPRESSION: Chronic emphysematous change without acute pulmonary process. No significant change from prior.
[2017-05-21 16:42] LABS: ALT 40 U/L (21-72); AST 23 U/L (17-59); Alkaline Phosphatase 96 U/L (38-126); Anion Gap 9 mmol/L; Blood Urea Nitrogen 17 mg/dL (9-20); Calcium 9.2 mg/dL (8.4-10.2); Carbon Dioxide 25 mmol/L (22-30); Chloride 108 mmol/L (98-107); Glucose 78 mg/dL (74-99); Non-African American GFR(MDRD) >60 (>60 ml/min/1.73 sqM); Potassium 4.2 mmol/L (3.5-5.1); Sodium 142 mmol/L (137-145); Total Bilirubin 0.6 mg/dL (0.2-1.3); Total Protein 6.9 g/dL (6.3-8.2)
[2017-05-21] MEDS ORDERED: SODIUM CHLORIDE 0.9% 1,000 ML IV ONE (17:35)
[2017-05-21] MEDS: IPRATROPIUM-ALBUTEROL 3 ML NEB INHALATION PRN (19:14)
[2017-05-21 20:27] LABS: Hemoglobin A1C 5.6 % (4.2-6.1)
[2017-05-21 20:55] LABS: Glucose,Whole Blood 128 mg/dL (75-99)
[2017-05-21] MEDS: ALPRAZolam 0.5 MG TAB PO SCH (21:27)
[2017-05-21] MEDS: methylPREDNISolone SOD SUCCI 125 MG/2 ML VIAL IV SCH (21:27)
[2017-05-21] MEDS: INSULIN LISPRO (humaLOG) 300 UNIT/3 ML VIAL SQ SCH (21:29)
[2017-05-22] MEDS: methylPREDNISolone SOD SUCCI 125 MG/2 ML VIAL IV SCH ×5 (00:52→23:15)
[2017-05-22 07:01] LABS: Glucose,Whole Blood 174 mg/dL (75-99)
[2017-05-22] MEDS: IPRATROPIUM-ALBUTEROL 3 ML NEB INHALATION PRN ×4 (07:17→21:16)
[2017-05-22] MEDS: INSULIN LISPRO (humaLOG) 300 UNIT/3 ML VIAL SQ SCH ×4 (07:57→21:33)
[2017-05-22] MEDS: VALSARTAN 80 MG TAB PO SCH (07:57)
[2017-05-22 09:17] LABS: Basophils % (A) 0 %; CH 31.1; CHCM 33.1; Eosinophils % (A) 0 %; HCT 42.1 % (39.0-53.0); HDW 2.77; HGB 13.7 gm/dL (13.0-17.5); Luc # (Auto) 0.02; Luc % (Auto) 0; Lymphocytes # (A) 0.9 k/uL (1.0-4.8); Lymphocytes % (A) 8 %; MCH 30.7 pg (25.0-35.0); MCHC 32.4 g/dL (31.0-37.0); MCV 94.7 fL (80.0-100.0); Mean Platelet Volume 8.8; Monocytes # (A) 0.1 k/uL (0-1.0); Monocytes % (A) 1 %; Neutrophils # (A) 9.5 k/uL (1.3-7.7); Neutrophils % (A) 91 %; RBC 4.45 m/uL (4.30-5.90); RDW 14.6 % (11.5-15.5); WBC 10.5 k/uL (3.8-10.6)
[2017-05-22 09:32] LABS: Anion Gap 10 mmol/L; Blood Urea Nitrogen 25 mg/dL (9-20); Carbon Dioxide 23 mmol/L (22-30); Chloride 105 mmol/L (98-107); Glucose 241 mg/dL (74-99); Non-African American GFR(MDRD) >60 (>60 ml/min/1.73 sqM); Potassium 4.3 mmol/L (3.5-5.1); Sodium 138 mmol/L (137-145)
[2017-05-22 11:40] LABS: Glucose,Whole Blood 170 mg/dL (75-99)
--- NOTE | 2017-05-22 14:46 | P.HPIM ---
History of Present Illness H&P Date: 05/22/17 Chief Complaint: Acute exacerbation chronic COPD, shortness of breath Mr. England is a 66-year-old male with significant past medical history for chronic obstructive pulmonary disease who presented via the emergency room with an acute exacerbation of chronic COPD. Patient has cough congestion tightness over the past 3-4 days. Patient does breathing treatments at home he is not steroid dependent yet not oxygen dependent yet. Patient still smokes. In fact this patient had cataract surgery on his left eye yesterday morning prior to his admission via the emergency room. Denies fever or chills denies back pain denies abdominal pain denies nausea vomiting numbness or tingling dysuria or hematuria denies constipation headaches or visual disturbances his O2 sats in the emergency room never chacorta above high 80s Review of Systems Constitutional: Reports as per HPI Ears, nose, mouth and throat: Reports as per HPI Cardiovascular: Reports as per HPI, Reports shortness of breath Respiratory: Reports congestion, Reports cough, Reports cough with sputum, Reports dyspnea Gastrointestinal: Reports as per HPI Genitourinary: Reports as per HPI Musculoskeletal: Reports as per HPI Integumentary: Reports as per HPI Neurological: Reports as per HPI Psychiatric: Reports as per HPI Past Medical History Past Medical History: COPD, Eye Disorder, Hypertension Additional Past Medical History / Comment(s): cataracts History of Any Multi-Drug Resistant Organisms: None Reported Past Surgical History: No Surgical Hx Reported Additional Past Surgical History / Comment(s): jaw surgery. rt/lf cataract sx Past Anesthesia/Blood Transfusion Reactions: No Reported Reaction Additional Past Anesthesia/Blood Transfusion Reaction / Comment(s): no family problems Past Psychological History: Anxiety Smoking Status: Current every day smoker Past Alcohol Use History: None Reported Additional Past Alcohol Use History / Comment(s): smoker since 1961 1 PPD Past Drug Use History: None Reported - Past Family History Mother Family Medical History: No Reported History Father Family Medical History: Myocardial Infarction ([place]) Additional Family Medical History / Comment(s): of heart attack Medications and Allergies Home Medications Medication Instructions Recorded Confirmed Type RX: Valsartan [Diovan] 80 mg PO DAILY 04/27/16 05/21/17 History RX: ALPRAZolam 1 mg PO HS 04/28/16 05/21/17 History RX: Albuterol Sulfate [Proair Hfa] 2 puff INHALATION RT-Q4H PRN 04/28/16 History Allergies Allergy/AdvReac Type Severity Reaction Status Date / Time No Known Allergies Allergy Verified 05/21/17 15:28 Physical Exam Osteopathic Statement: *. No significant issues noted on an osteopathic structural exam other than those noted in the History and Physical/Consult. Vitals: Vital Signs Temp Pulse Pulse Resp BP BP Pulse Ox 05/22/17 11:16 70 05/22/17 11:04 70 05/22/17 08:00 67 18 05/22/17 07:28 65 05/22/17 07:19 65 95 05/22/17 07:00 96.7 F L 67 18 156/98 94 L 05/21/17 23:00 97.5 F L 79 18 137/75 94 L 05/21/17 19:23 73 05/21/17 19:20 96.6 F L 72 18 157/88 96 05/21/17 19:13 71 95 05/21/17 18:09 97.8 F 86 20 163/77 94 L 05/21/17 17:30 77 05/21/17 17:16 72 05/21/17 16:37 96 05/21/17 15:52 77 05/21/17 15:41 73 05/21/17 15:05 97.2 F L 72 16 184/97 95 Intake and Output 05/21/17 05/22/17 05/22/17 22:59 06:59 14:59 Intake Total 350 Balance 350 Intake: Oral 350 Other: # Voids 1 2 Weight 81.647 kg General: [Patient awake, alert and oriented times 3. Patient in no acute distress.] HEENT: [PERRL. EOMI. No pharyngeal erythema or exudate.] Neck: [No adenopathy.] Cardiac: [Heart regular in rate and rhythm. No S3. No S4. No clicks, rubs. No murmur.] Lungs: Poor air exchange, bilateral expirational wheezes fine bibasilar crackles Abdomen: [No mass. No organomegaly. Bowel sounds presnt and normoactive in all 4 quadrants.] Extremes: [No edema no cyanosis no claudication normal pulses] : [] Musculoskeletal: [No joint erythema, edema or tenderness.] Skin: [No rash.] Neurologic: [No lateralizing deficits. CN II - XII grossly intact.] Lymphatic: [No adenopathy.] Results CBC & Chem 7: 05/22/17 08:20 05/22/17 08:18 Labs: Abnormal Lab Results - Last 24 Hours (Table) 05/21/17 05/21/17 05/22/17 Range/Units 16:13 20:54 06:49 Neutrophils # (1.3-7.7) k/uL Lymphocytes # (1.0-4.8) k/uL Chloride 108 H (98-107) mmol/L BUN (9-20) mg/dL Glucose (74-99) mg/dL POC Glucose (mg/dL) 128 H 174 H (75-99) mg/dL 05/22/17 05/22/17 05/22/17 Range/Units 08:18 08:20 11:30 Neutrophils # 9.5 H (1.3-7.7) k/uL Lymphocytes # 0.9 L (1.0-4.8) k/uL Chloride (98-107) mmol/L BUN 25 H (9-20) mg/dL Glucose 241 H (74-99) mg/dL POC Glucose (mg/dL) 170 H (75-99) mg/dL Thrombosis Risk Factor Assmnt - DVT/VTE Prophylaxis DVT/VTE Prophylaxis: Pharmacologic Prophylaxis ordered - Choose All That Apply Each Factor Represents 1 point: Abnormal pulmonary function (COPD), Age 41-60 years Each Risk Factor Represents 2 Points: Age 61-74 years Thrombosis Risk Factor Assessment Total Risk Factor Score: 4 Thrombosis Risk Factor Assessment Level: Moderate Risk Assessment and Plan (1) COPD with acute exacerbation Narrative/Plan: Patient is currently getting it inhaled albuterol IV steroids Inhaled steroids We will continue to follow Status: Acute Time with Patient: Greater than 30
[2017-05-22 17:30] LABS: Glucose,Whole Blood 176 mg/dL (75-99)
[2017-05-22] MEDS: ALPRAZolam 0.5 MG TAB PO SCH (20:34)
[2017-05-22 21:40] LABS: Glucose,Whole Blood 233 mg/dL (75-99)
[2017-05-23] MEDS: methylPREDNISolone SOD SUCCI 125 MG/2 ML VIAL IV SCH ×2 (05:49→11:01)
[2017-05-23] MEDS: IPRATROPIUM-ALBUTEROL 3 ML NEB INHALATION PRN ×3 (07:14→15:32)
[2017-05-23 07:28] LABS: Glucose,Whole Blood 146 mg/dL (75-99)
[2017-05-23] MEDS: INSULIN LISPRO (humaLOG) 300 UNIT/3 ML VIAL SQ SCH ×2 (07:35→12:00)
[2017-05-23] MEDS: VALSARTAN 80 MG TAB PO SCH (07:35)
[2017-05-23 12:01] LABS: Glucose,Whole Blood 118 mg/dL (75-99)
[2017-05-23 14:50] VITALS: BP 141/77; RESP 17; TEMP 98.2
[2017-05-23 15:48] VITALS: PULSE 78
--- NOTE | 2017-05-23 16:55 | P.DS ---
Providers Date of admission: 05/21/17 17:23 Expected date of discharge: 05/23/17 Attending physician: Eris Culver Primary care physician: Eris Culver - Discharge Diagnosis(es) (1) COPD with acute exacerbation Patient presented the evening before last with acute exacerbation of chronic COPD. Patient was started on IV steroids updraft treatments reviewed his respiratory effort is now are completely clear. He wishes to go home immediately General: [Patient awake, alert and oriented times 3. Patient in no acute distress.] HEENT: [PERRL. EOMI. No pharyngeal erythema or exudate.] Neck: [No adenopathy.] Cardiac: [Heart regular in rate and rhythm. No S3. No S4. No clicks, rubs. No murmur.] Lungs: [Clear to auscultation bilaterally.] Abdomen: [No mass. No organomegaly. Bowel sounds presnt and normoactive in all 4 quadrants.] Extremes: [No edema no cyanosis no claudication normal pulses] : [] Musculoskeletal: [No joint erythema, edema or tenderness.] Skin: [No rash.] Neurologic: [No lateralizing deficits. CN II - XII grossly intact.] Lymphatic: [No adenopathy.] Current Visit: No Status: Acute Patient Condition at Discharge: Stable Plan - Discharge Summary New Discharge Prescriptions: New Albuterol Sulfate [Proair Hfa] 1 - 2 puff INHALATION Q6HR PRN #1 inhaler PRN Reason: Dyspnea predniSONE 40 mg PO DAILY #30 tab No Action Valsartan [Diovan] 80 mg PO DAILY Albuterol Sulfate [Proair Hfa] 2 puff INHALATION RT-Q4H PRN PRN Reason: Shortness Of Breath ALPRAZolam 1 mg PO HS Discharge Medication List Valsartan [Diovan] 80 mg PO DAILY 04/27/16 [History] ALPRAZolam 1 mg PO HS 04/28/16 [History] Albuterol Sulfate [Proair Hfa] 2 puff INHALATION RT-Q4H PRN 04/28/16 [History] Albuterol Sulfate [Proair Hfa] 1 - 2 puff INHALATION Q6HR PRN #1 inhaler [Rx] predniSONE 40 mg PO DAILY #30 tab 05/23/17 [Rx] Follow up Appointment(s)/Referral(s): Eris Culver MD [Primary Care Provider] - 1-2 days Patient Instructions/Handouts: COPD (Chronic Obstructive Pulmonary Disease) (DC ) Activity/Diet/Wound Care/Special Instructions: No smoking, cessation information provided. Activity as tolerated.
== END 2017-05-23 17:13 | disposition home or self-care (01) ==
LOC: EC 15:01 → 4MS4W 17:23
PROVIDERS: ADMIT Family Medicine; ATTEND Family Medicine
DX: J44.1 Chronic obstructive pulmonary disease with (acute) exacerbation (principal); I10 Essential (primary) hypertension; F41.9 Anxiety disorder, unspecified; F17.200 Nicotine dependence, unspecified, uncomplicated; Z79.899 Other long term (current) drug therapy; Z82.49 Family history of ischemic heart disease and other diseases of the circulatory system
CPT/HCPCS: 99285; 96374; 36415; 94640 ×6; 94760; 93005; 80053; 80048; 83036; 83735; 85025 ×2; 71020; 66984; G0378 ×3; V2632; J2001; J2250; J3470; J2930 ×3; J0171; J3010; J2704

== ENCOUNTER 2017-05-26 06:56 | Inpatient (IN) | payer MEDICARE ==
[2017-05-26] MEDS ORDERED: SODIUM CHLORIDE 0.9% 1,000 ML IV STA (07:21)
[2017-05-26] MEDS ORDERED: MORPHINE SULFATE 4 MG/ML SYRINGE IV STA (07:21)
--- NOTE | 2017-05-26 07:24 | ED ---
General Adult HPI - General Chief complaint: Chest Pain Stated complaint: chest pains Time Seen by Provider: 05/26/17 07:17 Source: patient, RN notes reviewed Mode of arrival: ambulatory Limitations: no limitations - History of Present Illness Initial comments: Patient is a pleasant 66-year-old male presenting to the emergency department complaining of chest discomfort. Onset was yesterday. Symptoms progressed over several hours. Discomfort is starting to become severe. Discomfort worsens with cough and deep breaths and movements. No history of similar symptoms previously. Patient did have some chills last night. Patient has had mild cough, nonproductive since yesterday. Discomfort is right lower chest and does radiate towards the back. No abdominal pain. No leg pain or leg swelling. - Related Data Home Medications Medication Instructions Recorded Confirmed Valsartan [Diovan] 80 mg PO DAILY 04/27/16 05/26/17 ALPRAZolam 1 mg PO HS 04/28/16 05/26/17 Albuterol Sulfate [Proair Hfa] 1 - 2 puff INHALATION RT-Q4H PRN 04/28/16 HYDROcodone/APAP 10-325MG [[place] 1 tab PO Q6H PRN 05/26/17 05/26/17 10-325] Previous Rx's Medication Instructions Recorded predniSONE 40 mg PO DAILY #30 tab 05/23/17 Allergies Allergy/AdvReac Type Severity Reaction Status Date / Time No Known Allergies Allergy Verified 05/26/17 09:31 Review of Systems ROS Statement: Those systems with pertinent positive or pertinent negative responses have been documented in the HPI. ROS Other: All systems not noted in ROS Statement are negative. Constitutional: Denies: fever Eyes: Denies: eye pain ENT: Denies: ear pain Respiratory: Reports: cough. Denies: dyspnea Cardiovascular: Reports: chest pain Endocrine: Denies: fatigue Gastrointestinal: Denies: abdominal pain Genitourinary: Denies: dysuria Musculoskeletal: Denies: back pain Skin: Denies: rash Neurological: Denies: weakness Past Medical History Past Medical History: COPD, Eye Disorder, Hypertension Additional Past Medical History / Comment(s): cataracts History of Any Multi-Drug Resistant Organisms: None Reported Past Surgical History: No Surgical Hx Reported Additional Past Surgical History / Comment(s): jaw surgery. rt/lf cataract sx Past Anesthesia/Blood Transfusion Reactions: No Reported Reaction Additional Past Anesthesia/Blood Transfusion Reaction / Comment(s): no family problems Past Psychological History: Anxiety Smoking Status: Current every day smoker Past Alcohol Use History: None Reported Past Drug Use History: None Reported - Past Family History Mother Family Medical History: No Reported History Father Family Medical History: Myocardial Infarction ([place]) Additional Family Medical History / Comment(s): of heart attack General Exam Limitations: no limitations General appearance: alert, in no apparent distress Head exam: Present: atraumatic Eye exam: Present: normal appearance, PERRL ENT exam: Present: normal oropharynx Neck exam: Present: normal inspection Respiratory exam: Present: normal lung sounds bilaterally. Absent: chest wall tenderness Cardiovascular Exam: Present: regular rate, normal rhythm GI/Abdominal exam: Present: soft. Absent: tenderness Extremities exam: Present: normal inspection. Absent: pedal edema, calf tenderness Back exam: Present: normal inspection Neurological exam: Present: alert Psychiatric exam: Present: normal affect, normal mood Skin exam: Present: normal color. Absent: rash Course Vital Signs 05/26/17 05/26/17 05/26/17 07:03 07:39 07:44 Temperature 99.3 F 101.1 F H Pulse Rate 102 H 92 Respiratory 20 20 Rate Blood Pressure 142/65 149/84 O2 Sat by Pulse 92 L 95 Oximetry 05/26/17 05/26/17 05/26/17 08:14 09:14 09:31 Temperature 98.5 F Pulse Rate 90 84 Respiratory 18 18 Rate Blood Pressure 141/80 122/72 O2 Sat by Pulse 94 L 94 L Oximetry - Reevaluation(s) Reevaluation #1: 05/26/17 09:38 Patient does meet criteria for severe sepsis based on vital signs and pneumonia on computed tomography scan. Blood cultures and lactic acid have been ordered. IV antibiotics will be ordered. EKG Findings - EKG Comments: EKG Findings:: Sinus rhythm 95. ID 142. QRS 72. QT 334. QTC 419. Normal axis. LVH criteria. Nonspecific ST-T. Medical Decision Making - Medical Decision Making Patient reexamined and resting comfortably in bed. Patient updated on results including concern regarding thoracic aneurysm. Case was also discussed in detail with Dr. Nair, who will admit for Dr. Culver. He is familiar with this patient. He was also updated on concern regarding aneurysm. - Lab Data Result diagrams: 05/26/17 07:43 05/26/17 07:43 Lab Results 05/26/17 05/26/17 05/26/17 Range/Units 07:43 07:43 07:43 WBC 14.1 H (3.8-10.6) k/uL RBC 4.46 (4.30-5.90) m/uL Hgb 14.0 (13.0-17.5) gm/dL Hct 41.2 (39.0-53.0) % MCV 92.4 (80.0-100.0) fL MCH 31.4 (25.0-35.0) pg MCHC 34.0 (31.0-37.0) g/dL RDW 14.1 (11.5-15.5) % Plt Count 174 (150-450) k/uL Neutrophils % 80 % Lymphocytes % 11 % Monocytes % 7 % Eosinophils % 1 % Basophils % 0 % Neutrophils # 11.3 H (1.3-7.7) k/uL Lymphocytes # 1.5 (1.0-4.8) k/uL Monocytes # 1.0 (0-1.0) k/uL Eosinophils # 0.1 (0-0.7) k/uL Basophils # 0.0 (0-0.2) k/uL PT (9.0-12.0) sec INR (<1.2) APTT (22.0-30.0) sec D-Dimer (<0.60) mg/L FEU Sodium 134 L (137-145) mmol/L Potassium 3.8 (3.5-5.1) mmol/L Chloride 100 (98-107) mmol/L Carbon Dioxide 26 (22-30) mmol/L Anion Gap 8 mmol/L BUN 19 (9-20) mg/dL Creatinine 1.06 (0.66-1.25) mg/dL Est GFR (MDRD) Af Amer >60 (>60 ml/min/1.73 sqM) Est GFR (MDRD) Non-Af >60 (>60 ml/min/1.73 sqM) Glucose 115 H (74-99) mg/dL Plasma Lactic Acid Leonides (0.7-2.0) mmol/L Calcium 8.3 L (8.4-10.2) mg/dL Magnesium 1.7 (1.6-2.3) mg/dL Total Bilirubin 0.8 (0.2-1.3) mg/dL AST 16 L (17-59) U/L ALT 31 (21-72) U/L Alkaline Phosphatase 80 (38-126) U/L Total Creatine Kinase 29 L (55-170) U/L CK-MB (CK-2) <0.2 (0.0-2.4) ng/mL CK-MB (CK-2) Rel Index Troponin I <0.012 (0.000-0.034) ng/mL Total Protein 5.9 L (6.3-8.2) g/dL Albumin 3.4 L (3.5-5.0) g/dL 05/26/17 05/26/17 Range/Units 07:43 07:43 WBC (3.8-10.6) k/uL RBC (4.30-5.90) m/uL Hgb (13.0-17.5) gm/dL Hct (39.0-53.0) % MCV (80.0-100.0) fL MCH (25.0-35.0) pg MCHC (31.0-37.0) g/dL RDW (11.5-15.5) % Plt Count (150-450) k/uL Neutrophils % % Lymphocytes % % Monocytes % % Eosinophils % % Basophils % % Neutrophils # (1.3-7.7) k/uL Lymphocytes # (1.0-4.8) k/uL Monocytes # (0-1.0) k/uL Eosinophils # (0-0.7) k/uL Basophils # (0-0.2) k/uL PT 11.0 (9.0-12.0) sec INR 1.1 (<1.2) APTT 23.2 (22.0-30.0) sec D-Dimer 1.36 H (<0.60) mg/L FEU Sodium (137-145) mmol/L Potassium (3.5-5.1) mmol/L Chloride (98-107) mmol/L Carbon Dioxide (22-30) mmol/L Anion Gap mmol/L BUN (9-20) mg/dL Creatinine (0.66-1.25) mg/dL Est GFR (MDRD) Af Amer (>60 ml/min/1.73 sqM) Est GFR (MDRD) Non-Af (>60 ml/min/1.73 sqM) Glucose (74-99) mg/dL Plasma Lactic Acid Leonides 1.8 (0.7-2.0) mmol/L Calcium (8.4-10.2) mg/dL Magnesium (1.6-2.3) mg/dL Total Bilirubin (0.2-1.3) mg/dL AST (17-59) U/L ALT (21-72) U/L Alkaline Phosphatase (38-126) U/L Total Creatine Kinase (55-170) U/L CK-MB (CK-2) (0.0-2.4) ng/mL CK-MB (CK-2) Rel Index Troponin I (0.000-0.034) ng/mL Total Protein (6.3-8.2) g/dL Albumin (3.5-5.0) g/dL - Radiology Data Radiology results: report reviewed (Computed tomography scan of the chest shows no pulmonary embolism. There is right middle lobe infiltrate. There is aneurysmal dilation of descending thoracic aorta 3.9 cm.), image reviewed ( Chest x-ray shows COPD) Critical Care Time Critical Care Time: Yes Total Critical Care Time: 32 Disposition Clinical Impression: Right middle lobe pneumonia, Descending thoracic aortic aneurysm, Severe sepsis Disposition: ADMITTED IP TO THIS [facility] Condition: Serious Referrals: Eris Culver MD [Primary Care Provider] - 1-2 days Decision Time: 09:39
[2017-05-26 07:52] LABS: Basophils % (A) 0 %; CH 31.1; CHCM 33.8; Eosinophils # (A) 0.1 k/uL (0-0.7); Eosinophils % (A) 1 %; HCT 41.2 % (39.0-53.0); HDW 2.55; Luc % (Auto) 1; Lymphocytes # (A) 1.5 k/uL (1.0-4.8); Lymphocytes % (A) 11 %; MCH 31.4 pg (25.0-35.0); MCV 92.4 fL (80.0-100.0); Mean Platelet Volume 8.1; Monocytes % (A) 7 %; Neutrophils # (A) 11.3 k/uL (1.3-7.7); Neutrophils % (A) 80 %; RBC 4.46 m/uL (4.30-5.90); RDW 14.1 % (11.5-15.5); WBC 14.1 k/uL (3.8-10.6); WBC (Perox) 13.67
[2017-05-26] MEDS ORDERED: ACETAMINOPHEN TAB 500 MG TAB PO STA (07:59)
--- NOTE | 2017-05-26 08:02 | XR ---
EXAMINATION TYPE: XR chest 2V DATE OF EXAM: 05/26/2017 HISTORY: Chest Pain. REFERENCE: Previous study dated 05/21/2017. FINDINGS: The lungs are overinflated but clear. Pleural space are clear. The heart is not enlarged. IMPRESSION: COPD.
[2017-05-26 08:09] LABS: INR 1.1 (<1.2); Partial Thromboplastin Time 23.2 sec (22.0-30.0)
[2017-05-26] MEDS ORDERED: RX INFO: IV CONTRAST WAS GIVEN 1 EACH MISC MISCELLANE PRN (08:15)
[2017-05-26 08:21] LABS: ALT 31 U/L (21-72); AST 16 U/L (17-59); Alkaline Phosphatase 80 U/L (38-126); Anion Gap 8 mmol/L; Blood Urea Nitrogen 19 mg/dL (9-20); Calcium 8.3 mg/dL (8.4-10.2); Carbon Dioxide 26 mmol/L (22-30); Chloride 100 mmol/L (98-107); Glucose 115 mg/dL (74-99); Magnesium 1.7 mg/dL (1.6-2.3); Non-African American GFR(MDRD) >60 (>60 ml/min/1.73 sqM); Potassium 3.8 mmol/L (3.5-5.1); Sodium 134 mmol/L (137-145); Total Bilirubin 0.8 mg/dL (0.2-1.3); Total Protein 5.9 g/dL (6.3-8.2)
[2017-05-26 08:45] LABS: Creatine Kinase 29 U/L (55-170)
[2017-05-26 08:58] LABS: Creatine Kinase MB <0.2 ng/mL (0.0-2.4); Troponin I <0.012 ng/mL (0.000-0.034)
--- NOTE | 2017-05-26 09:18 | CT ---
EXAMINATION TYPE: CT angio chest DATE OF EXAM: 05/26/2017 9:08 AM COMPARISON: NONE HISTORY: Chest pain CT DLP: 241.8 mGycm Automated exposure control for dose reduction was used. CONTRAST: CTA scan of the thorax is performed with IV Contrast, patient injected with 66.4 mL of Omnipaque 350, pulmonary embolism protocol. . FINDINGS: There is dense consolidation in the medial aspect of the right middle lobe. There is depend ent atelectasis in the dependent portions of the lungs. There is no significant axillary or mediastinal adenopathy. There are some small right hilar lymph no jeannine. There is no evidence of pulmonary embolus. The heart is not enlarged. The aortic root is normal in size. The proximal descending thoracic aorta is aneurysmal measuring 3.9 cm. At the level of the aortic hiatus, the aorta remains aneurysmal at 3 .3 cm. The suprarenal abdominal aorta is normal in caliber. There is no evidence of dissection. There is no pleural or pericardial fluid. There is thickening of the distal esophagus. There is stranding around both kidneys. Visualized portions of the upper abdomen are otherwise unrema rkable. There is minimal hypertrophic spondylosis within the spine. IMPRESSION: 1. THIS EXAMINATION IS NEGATIVE FOR PULMONARY EMBOLUS. 2. THIS EXAMINATION IS POSITIVE FOR ANEURYSMAL DILATATION OF THE DESCENDING THORACIC AORTA WITH MAXIM AL TRANSVERSE DIAMETER 3.9 CM.: 3. THICKENING OF THE DISTAL ESOPHAGUS. 4. DENSE CONSOLIDATION IN THE MEDIAL ASPECT OF THE RIGHT MIDDLE LOBE LIKELY REPRESENTING PNEUMONIA.
[2017-05-26] MEDS ORDERED: LEVOFLOXACIN 750MG-D5W PMX 750 MG in DEXTROSE/WATER 1 150ML.BAG IVPB STA (09:39)
[2017-05-26] MEDS ORDERED: PNEUMONIA PROTOCOL UTILIZED 1 EACH MISC PO PRN (09:39)
[2017-05-26] MEDS ORDERED: PIPERACILLIN-TAZOBACTAM 3.375 GM in DEXTROSE/WATER 1 50ML.BAG IVPB STA (09:39)
[2017-05-26] MEDS ORDERED: IPRATROPIUM-ALBUTEROL 3 ML NEB INHALATION PRN (09:39)
[2017-05-26] MEDS ORDERED: KETOROLAC 30 MG/ML 1 ML VIAL IVP STA (11:12)
[2017-05-26] MEDS: IPRATROPIUM-ALBUTEROL 3 ML NEB INHALATION SCH ×3 (12:38→20:30)
[2017-05-26 13:38] VITALS: BMI 27.1
[2017-05-26] MEDS: SODIUM CHLORIDE 0.9% 1,000 ML IV SCH ×2 (14:44→23:16)
[2017-05-26] MEDS ORDERED: predniSONE 10 MG TAB PO SCH (15:30)
[2017-05-26] MEDS ORDERED: predniSONE 20 MG TAB PO SCH (15:30)
[2017-05-26] MEDS: PIPERACILLIN-TAZOBACTAM 3.375 GM in DEXTROSE/WATER 1 50ML.BAG IVPB SCH ×2 (16:07→23:16)
[2017-05-26] MEDS: VALSARTAN 80 MG TAB PO SCH (16:15)
[2017-05-26] MEDS: ALPRAZolam 0.5 MG TAB PO SCH (20:55)
[2017-05-26] MEDS ORDERED: ACETAMINOPHEN TAB 325 MG TAB PO PRN (22:05)
[2017-05-26] MEDS ORDERED: IBUPROFEN 400 MG TAB PO PRN (23:26)
[2017-05-27] MEDS: SODIUM CHLORIDE 0.9% 1,000 ML IV SCH ×2 (06:34→17:23)
[2017-05-27] MEDS: VALSARTAN 80 MG TAB PO SCH (08:01)
--- NOTE | 2017-05-27 08:18 | XR ---
EXAMINATION TYPE: XR chest 2V DATE OF EXAM: 05/27/2017 COMPARISON: 05/26/2017 TECHNIQUE: PA and lateral views submitted. HISTORY: Pneumonia FINDINGS: There is increased density in the right upper lobe and thickening of the right paratracheal stripe. U nderlying COPD suggested with arthropathy of the shoulders. No overt failure. Pleural-based thickenin g or tiny effusions are stable. IMPRESSION: 1. Right paratracheal stripe thickening and increased density along the medial aspect right upper lob e. Differential diagnosis includes pneumonia. Follow-up to resolution to exclude underlying neoplasm. 2. Correlate for COPD.
[2017-05-27] MEDS: PIPERACILLIN-TAZOBACTAM 3.375 GM in DEXTROSE/WATER 1 50ML.BAG IVPB SCH ×3 (08:43→23:51)
[2017-05-27] MEDS: IPRATROPIUM-ALBUTEROL 3 ML NEB INHALATION SCH ×4 (08:46→20:40)
[2017-05-27] MEDS ORDERED: LEVOFLOXACIN 750MG-D5W PMX 750 MG in DEXTROSE/WATER 1 150ML.BAG IVPB SCH (10:00)
--- NOTE | 2017-05-27 14:30 | P.HPIM ---
History of Present Illness H&P Date: 05/27/17 Chief Complaint: Shortness of breath and right-sided chest pain Bronson is a 66-year-old white male well-known to me. He was admitted last week for exacerbation of COPD. He was cared for by my partner Dr. Arriaza. He came to the emergency room last night complaining of increasing pain. He was diagnosed with a right middle lobe pneumonia. He was placed on antibiotics and is on the floor now. He indicates he feels quite a bit better. He denies any chest pains pressures. Shortness of breath is only with exertion. No nausea or vomiting today. Review of Systems All systems: negative Past Medical History Past Medical History: COPD, Eye Disorder, Hypertension Additional Past Medical History / Comment(s): cataracts History of Any Multi-Drug Resistant Organisms: None Reported Past Surgical History: No Surgical Hx Reported Additional Past Surgical History / Comment(s): jaw surgery. rt/lf cataract sx Past Anesthesia/Blood Transfusion Reactions: No Reported Reaction Additional Past Anesthesia/Blood Transfusion Reaction / Comment(s): no family problems Past Psychological History: Anxiety Smoking Status: Former smoker Past Alcohol Use History: None Reported Additional Past Alcohol Use History / Comment(s): smoker since 1961 1 PPD Past Drug Use History: None Reported - Past Family History Mother Family Medical History: No Reported History Father Family Medical History: Myocardial Infarction ([place]) Additional Family Medical History / Comment(s): of heart attack Medications and Allergies Home Medications Medication Instructions Recorded Confirmed Type Valsartan [Diovan] 80 mg PO DAILY 04/27/16 05/26/17 History ALPRAZolam 1 mg PO HS 04/28/16 05/26/17 History Albuterol Sulfate [Proair Hfa] 1 - 2 puff INHALATION RT-Q4H PRN 04/28/16 History HYDROcodone/APAP 10-325MG [[place] 1 tab PO Q6H PRN 05/26/17 05/26/17 History 10-325] Allergies Allergy/AdvReac Type Severity Reaction Status Date / Time No Known Allergies Allergy Verified 05/26/17 09:31 Physical Exam Vitals: Vital Signs Temp Pulse Pulse Pulse Resp BP Pulse Ox 05/27/17 08:57 76 05/27/17 08:46 72 05/27/17 07:00 73 19 105/65 98 05/27/17 01:52 96.4 F L 88 14 87/53 95 05/27/17 00:00 22 05/26/17 23:58 116 H 20 100/56 92 L 05/26/17 23:27 101.5 F H 05/26/17 20:40 74 05/26/17 20:30 76 05/26/17 20:00 101 F H 89 18 158/80 91 L 05/26/17 16:45 70 05/26/17 16:30 72 96 05/26/17 15:00 98.4 F 16 129/82 97 Intake and Output 05/26/17 05/27/17 05/27/17 22:59 06:59 14:59 Other: Voiding Method Toilet # Voids 0 GENERAL: Well-appearing, well-nourished and in no acute distress. HEAD: Atraumatic, normocephalic. EYES: Pupils equal round and reactive to light, extraocular movements intact, sclera anicteric, conjunctiva are normal. ENT:nares patent, oropharynx clear without exudates. Moist mucous membranes. NECK: Normal range of motion, supple without lymphadenopathy or JVD, no thyromegaly LUNGS: Breath sounds Course to auscultation bilaterally and equal. No wheezes rales or rhonchi. HEART: Regular rate and rhythm without murmurs, rubs or gallops.S1S2 Normal ABDOMEN: Soft, nontender, normoactive bowel sounds. No guarding, no rebound. No masses appreciated. EXTREMITIES: Normal range of motion, no pitting or edema. No clubbing or cyanosis. NEUROLOGICAL: Cranial nerves II through XII grossly intact. Normal speech, normal gait. PSYCH: Normal mood, normal affect. SKIN: Warm, Dry, normal turgor, no rashes or lesions noted. Results CBC & Chem 7: 05/26/17 07:43 05/26/17 07:43 Labs: Microbiology - Last 24 Hours (Table) 05/26/17 07:43 Blood Culture - Preliminary Blood No Growth after 24 hours Chest x-ray: report reviewed CT scan - chest: report reviewed Thrombosis Risk Factor Assmnt - DVT/VTE Prophylaxis DVT/VTE Prophylaxis: Pharmacologic Prophylaxis ordered - Choose All That Apply Each Factor Represents 1 point: Abnormal pulmonary function (COPD) Each Risk Factor Represents 2 Points: Age 61-74 years Thrombosis Risk Factor Assessment Total Risk Factor Score: 3 Thrombosis Risk Factor Assessment Level: Moderate Risk Assessment and Plan Plan: Right Miiddle lobe Pneumonia:continue Zosyn and Levaquin. consult pulmonology. COPD: start updrafts, add symbicort and Spiriva, start solumedrol,Add Mucinex. Hypertension: Restart valsartan. DVT prophylaxis: Subcutaneous Lovenox. GI prophylax: Add Pepcid. Consult pulmonology reevaluation next 24 hrs
[2017-05-27] MEDS: guaiFENesin 600 MG TABLET.ER PO SCH ×2 (15:07→20:33)
[2017-05-27] MEDS: methylPREDNISolone SOD SUCCI 125 MG/2 ML VIAL IV SCH ×2 (15:07→23:52)
[2017-05-27] MEDS: FAMOTIDINE 20 MG TAB PO SCH (15:07)
[2017-05-27] MEDS: ENOXAPARIN 40 MG/0.4 ML SYRINGE SQ SCH (15:08)
--- NOTE | 2017-05-27 17:08 | P.CNPUL ---
History of Present Illness Consult date: 05/27/17 Reason for consult: dyspnea, pneumonia History of present illness: 66-year-old male patient with known history of COPD, coming into the hospital because of increased shortness of breath, chest congestion. The patient was having mainly pain over the right anterior chest area. He was in the hospital approximately a week ago and he was treated for the same he was discharged home on no antibiotics and he was given a prednisone burst taper. He continued to smoke. Is coming in with above-mentioned symptoms. Computed tomography scan of the chest was done and it showed a pneumonic infiltrate in the medial aspect/ segment of the right middle lobe. Based on that the patient was hospitalized and this was started on a combination of Zosyn and Levaquin. Feeling better. No pleurisy. No hemoptysis. No sick contacts. He is known to have moderate severe COPD with an FEV1 of 64% of predicted based on the pulmonary function status was done in December 2015. His diffusion capacity was at 98% of predicted and it's felt lung capacity is around 121% of predicted. We have given this patient Symbicort as maintenance over the end up getting the medication. Currently is on bronchodilators. He is receiving DuoNeb about treatments around the clock. He is also on IV Solu-Medrol. He is on a combination of Zosyn and Levaquin. Review of Systems Constitutional: Reports fatigue Eyes: right decreased vision, denies blurred vision, denies bulging eye Ears: deny: decreased hearing, ear discharge, earache Ears, nose, mouth and throat: Denies headache, Denies sore throat Cardiovascular: Reports chest pain, Reports decreased exercise tolerance, Reports shortness of breath Respiratory: Reports cough, Reports cough with sputum, Reports respiratory infections, Reports wheezing Gastrointestinal: Denies abdominal pain, Denies diarrhea, Denies nausea, Denies vomiting Genitourinary: Reports as per HPI Musculoskeletal: Denies myalgias Musculoskeletal: absent: ankle pain, ankle stiffness, ankle swelling Integumentary: Denies pruritus, Denies rash Neurological: Denies numbness, Denies weakness Psychiatric: Denies anxiety, Denies depression Endocrine: Denies fatigue, Denies weight change Past Medical History Past Medical History: COPD, Eye Disorder, Hypertension Additional Past Medical History / Comment(s): cataracts History of Any Multi-Drug Resistant Organisms: None Reported Past Surgical History: No Surgical Hx Reported Additional Past Surgical History / Comment(s): jaw surgery. rt/lf cataract sx Past Anesthesia/Blood Transfusion Reactions: No Reported Reaction Additional Past Anesthesia/Blood Transfusion Reaction / Comment(s): no family problems Past Psychological History: Anxiety Smoking Status: Former smoker Past Alcohol Use History: None Reported Additional Past Alcohol Use History / Comment(s): smoker since 1961 1 PPD Past Drug Use History: None Reported - Past Family History Mother Family Medical History: No Reported History Father Family Medical History: Myocardial Infarction ([place]) Additional Family Medical History / Comment(s): of heart attack Medications and Allergies Home Medications Medication Instructions Recorded Confirmed Type Valsartan [Diovan] 80 mg PO DAILY 04/27/16 05/26/17 History ALPRAZolam 1 mg PO HS 04/28/16 05/26/17 History Albuterol Sulfate [Proair Hfa] 1 - 2 puff INHALATION RT-Q4H PRN 04/28/16 History HYDROcodone/APAP 10-325MG [[place] 1 tab PO Q6H PRN 05/26/17 05/26/17 History 10-325] Allergies Allergy/AdvReac Type Severity Reaction Status Date / Time No Known Allergies Allergy Verified 05/26/17 09:31 Physical Exam Vitals: Vital Signs Temp Pulse Pulse Pulse Resp BP Pulse Ox 05/27/17 16:07 77 05/27/17 15:57 74 05/27/17 15:00 96.9 F L 90 20 103/64 96 05/27/17 08:57 76 05/27/17 08:46 72 05/27/17 07:00 73 19 105/65 98 05/27/17 01:52 96.4 F L 88 14 87/53 95 05/27/17 00:00 22 05/26/17 23:58 116 H 20 100/56 92 L 05/26/17 23:27 101.5 F H 05/26/17 20:40 74 05/26/17 20:30 76 05/26/17 20:00 101 F H 89 18 158/80 91 L Intake and Output 05/27/17 05/27/17 05/27/17 06:59 14:59 22:59 Other: # Voids 0 The patient appeared well nourished and normally developed. Vital signs as documented. Head exam is unremarkable. No scleral icterus or corneal arcus noted. Neck is without jugular venous distension, thyromegaly, or carotid bruits. Carotid upstrokes are brisk bilaterally. Lungs are showing diminished breath sounds bilaterally along with some prolongation of the extremities of breathing.. Cardiac exam reveals the PMI to be normally sized and situated. Rhythm is regular. First and second heart sounds normal. No murmurs, rubs or gallops. Abdominal exam reveals normal bowel sounds, no masses, no organomegaly and no aortic enlargement. Extremities are nonedematous and both femoral and pedal pulses are normal. Results - Laboratory Findings CBC and BMP: 05/26/17 07:43 05/26/17 07:43 PT/INR, D-dimer PT 11.0 sec (9.0-12.0) 05/26/17 07:43 INR 1.1 (<1.2) 05/26/17 07:43 D-Dimer 1.36 mg/L FEU (<0.60) H 05/26/17 07:43 Abnormal lab findings: Abnormal Labs 05/26/17 05/26/17 05/26/17 07:43 07:43 07:43 WBC 14.1 H Neutrophils # 11.3 H D-Dimer Sodium 134 L Glucose 115 H Calcium 8.3 L AST 16 L Total Creatine Kinase 29 L Total Protein 5.9 L Albumin 3.4 L 05/26/17 07:43 WBC Neutrophils # D-Dimer 1.36 H Sodium Glucose Calcium AST Total Creatine Kinase Total Protein Albumin - Diagnostic Findings Chest x-ray: image reviewed Assessment and Plan Plan: Assessment 1 right middle lobe pneumonia currently on a combination of Zosyn and Levaquin. 2 acute COPD exacerbation secondary to above. Based on FEV1 is order of 67% of predicted. He is a chronic smoker. 3 hypertension 4 acute addiction/smoking 5 generalized anxiety disorder. Plan continue the combination of bronchodilators and the patient is on DuoNeb neb last treatment [id number]. Continue IV Solu Medrol. Continue Zosyn and Levaquin. smoking cessation counseling. Chest x-ray was reviewed. CAT scan of the chest was reviewed. Anticipate recovery. We'll continue to follow.
[2017-05-27] MEDS ORDERED: INSULIN LISPRO (humaLOG) 300 UNIT/3 ML VIAL SQ SCH (17:30)
[2017-05-27 18:54] LABS: Hemoglobin A1C 5.8 % (4.2-6.1)
[2017-05-27] MEDS: ALPRAZolam 0.5 MG TAB PO SCH (20:33)
[2017-05-27] MEDS: SYMBICORT 160-4.5 MCG INHALER INHALATION SCH (20:40)
[2017-05-28] MEDS: SODIUM CHLORIDE 0.9% 1,000 ML IV SCH ×5 (03:21→21:14)
[2017-05-28] MEDS: methylPREDNISolone SOD SUCCI 125 MG/2 ML VIAL IV SCH (06:21)
[2017-05-28] MEDS: IPRATROPIUM-ALBUTEROL 3 ML NEB INHALATION SCH ×4 (07:16→21:06)
[2017-05-28] MEDS: SYMBICORT 160-4.5 MCG INHALER INHALATION SCH ×2 (07:16→21:06)
[2017-05-28] MEDS ORDERED: TIOTROPIUM 18 MCG/PUFF INHALER INHALATION SCH (08:00)
[2017-05-28] MEDS: PIPERACILLIN-TAZOBACTAM 3.375 GM in DEXTROSE/WATER 1 50ML.BAG IVPB SCH ×2 (08:22→15:34)
[2017-05-28] MEDS: FAMOTIDINE 20 MG TAB PO SCH (08:22)
[2017-05-28] MEDS: VALSARTAN 80 MG TAB PO SCH (08:22)
[2017-05-28] MEDS: ENOXAPARIN 40 MG/0.4 ML SYRINGE SQ SCH (08:22)
[2017-05-28] MEDS: guaiFENesin 600 MG TABLET.ER PO SCH ×2 (08:22→21:13)
[2017-05-28 08:40] LABS: Basophils % (A) 0 %; CH 30.6; CHCM 32.4; Eosinophils % (A) 0 %; HCT 39.7 % (39.0-53.0); HDW 2.57; HGB 13.1 gm/dL (13.0-17.5); Luc % (Auto) 1; Lymphocytes # (A) 0.7 k/uL (1.0-4.8); Lymphocytes % (A) 4 %; MCH 31.3 pg (25.0-35.0); MCHC 32.9 g/dL (31.0-37.0); Mean Platelet Volume 8.7; Monocytes # (A) 0.5 k/uL (0-1.0); Monocytes % (A) 3 %; Neutrophils # (A) 17.2 k/uL (1.3-7.7); Neutrophils % (A) 93 %; RBC 4.18 m/uL (4.30-5.90); WBC 18.5 k/uL (3.8-10.6); WBC (Perox) 19.47
[2017-05-28 09:06] LABS: Anion Gap 10 mmol/L; Blood Urea Nitrogen 24 mg/dL (9-20); Calcium 8.6 mg/dL (8.4-10.2); Carbon Dioxide 22 mmol/L (22-30); Chloride 106 mmol/L (98-107); Glucose 270 mg/dL (74-99); Non-African American GFR(MDRD) >60 (>60 ml/min/1.73 sqM); Potassium 3.6 mmol/L (3.5-5.1); Sodium 138 mmol/L (137-145)
[2017-05-28] MEDS: LEVOFLOXACIN 750 MG TAB PO SCH (09:06)
--- NOTE | 2017-05-28 09:56 | P.PN ---
Fabien Dobson is a 66-year-old white male well-known to me. He was admitted last week for exacerbation of COPD. He was cared for by my partner Dr. Arriaza. He came to the emergency room last night complaining of increasing pain. He was diagnosed with a right middle lobe pneumonia. He was placed on antibiotics and is on the floor now. He indicates he feels quite a bit better. He denies any chest pains pressures. Shortness of breath is only with exertion. No nausea or vomiting today. 05/28/2017: He was started on Symbicort and Spiriva, Solu-Medrol, and Mucinex. He overall feels improved. He's had a bowel movement today. He is getting up and ambulating at bedside and in the halls without any complaints of weakness. He is remaining smoke-free since his previous hospitalization indicates it he will continue to be smoke-free. Objective - Vital Signs Vital signs: Vital Signs Temp 97.6 F 05/28/17 07:00 Pulse 82 05/28/17 07:35 Resp 14 05/28/17 07:17 BP 114/69 05/28/17 07:00 Pulse Ox 91 L 05/28/17 07:00 Intake & Output 05/27/17 05/28/17 05/28/17 18:59 06:59 18:59 Intake Total 100 Balance 100 Intake: Oral 100 Other: # Voids 3 1 - Exam GENERAL: Well-appearing, well-nourished and in no acute distress. NECK: Normal range of motion, supple without lymphadenopathy or JVD, no thyromegaly LUNGS: Breath sounds Course to auscultation bilaterally and equal. No wheezes rales or rhonchi. HEART: Regular rate and rhythm without murmurs, rubs or gallops.S1S2 Normal ABDOMEN: Soft, nontender, normoactive bowel sounds. No guarding, no rebound. No masses appreciated. EXTREMITIES: Normal range of motion, no pitting or edema. No clubbing or cyanosis. NEUROLOGICAL: Cranial nerves II through XII grossly intact. Normal speech, normal gait. PSYCH: Normal mood, normal affect. SKIN: Warm, Dry, normal turgor, no rashes or lesions noted. - Labs CBC & Chem 7: 05/28/17 08:16 05/28/17 08:16 Labs: Abnormal Lab Results - Last 24 Hours (Table) 05/28/17 05/28/17 Range/Units 08:16 08:16 WBC 18.5 H (3.8-10.6) k/uL RBC 4.18 L (4.30-5.90) m/uL Neutrophils # 17.2 H (1.3-7.7) k/uL Lymphocytes # 0.7 L (1.0-4.8) k/uL BUN 24 H (9-20) mg/dL Glucose 270 H (74-99) mg/dL Microbiology - Last 24 Hours (Table) 05/26/17 07:43 Blood Culture - Preliminary Blood No Growth after 24 hours Assessment and Plan Plan: Right Miiddle lobe Pneumonia:continue Zosyn and Levaquin. Allergy recommendations noted. COPD: U DuoNeb, Symbicort, Spiriva, Solu-Medrol, and Mucinex. Echo as some: He has remained smoke free, will monitor, he doesn't wish to have a patch, lozenges, or other nicotine replacement. Hypertension: Continue valsartan. DVT prophylaxis: Subcutaneous Lovenox. GI prophylax: Continue Pepcid. He has current medications treatments, I'll decrease cimetidine to 40 every 8, await further recommendations from pulmonology, reevaluate next 24 hours.
--- NOTE | 2017-05-28 11:25 | CDI ---
In responding to this query, please exercise your independent professional judgment. The [facility] Coding Staff and Clinical Documentation Specialists appreciate your assistance in clarifying documentation, maintaining compliance with coding guidelines, accurately documenting patients condition and capturing severity of illness. The fact that a question is asked does not imply that any particular answer is desired or expected. Communication forms are a method of clarifying documentation and are not made part of the Legal Health Record. Thank you in advance for your clarification. Last Revision, January 2017 Francesca Ramos [address] [facility] [place] [address] Documentation Clarification Form Date: 05/28/2017 11:11:00 AM From: Liam James, RN, BSN, CDI, CCDS Admit Date: 05/26/2017 9:40:00 AM Patient Name: Bronson England Visit Number: [id number] Dr. Eris Culver: "Severe sepsis, RML PNA" is documented in the ED notes. History/Risk Factors: 66 yo male with a history of COPD, HTN, residential smoker and recent hospitalization for COPD exacerbation, presents with c/o chest discomfort, which is worse with coughing and deep breathing. Clinical Indicators: WBC: 14.1 Lactic acid: 1.8 Blood cultures: no growth after 48 hours Vitals signs on admission: 142/65, 102, 18-22, 99.3-101.1, 92% RA Treatment: Tylenol, Levaquin, Zosyn, IVF @100cc/hr, pulmonary consult, telemetry In your professional opinion, please clarify if these findings signify one of the following conditions, whether the condition is POA, and cause, if known: Sepsis, ruled out SIRS, without underlying infectious process Sepsis (POA) Severe Sepsis Septic Shock Unable to determine Other, please specify Present on Admission: Yes No * Identify the (suspected) organism * Link or clarify if there is associated (due to/with): - Organ failure - Shock SIRS Criteria: 2 or more of the following may indicate SIRS Temperature < 96.8F(36C) or > 101.0F (38C) Heart Rate > 90 bpm Respiratory Rate > 20 breaths/min or PaCO2 < 32 mmHg White Blood Cell Count > 12,000 or < 4,000 cells/mm3 or > 10% bands Lactate >2.0 mmol/L (>4.0 is equivalent to septic shock) Please document in your progress notes and discharge summary in order to capture severity of illness and risk of mortality. Include clinical findings that support your diagnosis. FYI: Press F11 to launch patient chart. EVER
--- NOTE | 2017-05-28 12:00 | P.PN ---
Subjective 66-year-old male patient with known history of COPD, coming into the hospital because of increased shortness of breath, chest congestion. The patient was having mainly pain over the right anterior chest area. He was in the hospital approximately a week ago and he was treated for the same he was discharged home on no antibiotics and he was given a prednisone burst taper. He continued to smoke. Is coming in with above-mentioned symptoms. Computed tomography scan of the chest was done and it showed a pneumonic infiltrate in the medial aspect/ segment of the right middle lobe. Based on that the patient was hospitalized and this was started on a combination of Zosyn and Levaquin. Feeling better. No pleurisy. No hemoptysis. No sick contacts. He is known to have moderate severe COPD with an FEV1 of 64% of predicted based on the pulmonary function status was done in December 2015. His diffusion capacity was at 98% of predicted and it's felt lung capacity is around 121% of predicted. We have given this patient Symbicort as maintenance over the end up getting the medication. Currently is on bronchodilators. He is receiving DuoNeb about treatments around the clock. He is also on IV Solu-Medrol. He is on a combination of Zosyn and Levaquin. The patient was seen again today 05/28/2017 in follow-up in the regular medical floor. He is awake and alert in no acute distress. He is breathing easier today as compared to yesterday. He has been afebrile. He is maintaining good O2 saturations in the 90s on room air. Her white count 18.5. He is continued on Zosyn and Levaquin. Blood culture shows no growth to date. Objective - Vital Signs Vital signs: Vital Signs Temp 97.6 F 05/28/17 07:00 Pulse 82 05/28/17 11:34 Resp 14 05/28/17 07:17 BP 114/69 05/28/17 07:00 Pulse Ox 91 L 05/28/17 07:00 Intake & Output 05/27/17 05/28/17 05/28/17 18:59 06:59 18:59 Intake Total 100 Balance 100 Intake: Oral 100 Other: # Voids 3 1 2 - Exam The patient appeared well nourished and normally developed. Vital signs as documented. Head exam is unremarkable. No scleral icterus or corneal arcus noted. Neck is without jugular venous distension, thyromegaly, or carotid bruits. Carotid upstrokes are brisk bilaterally. Lungs are showing diminished breath sounds bilaterally along with some prolongation of the extremities of breathing.. Cardiac exam reveals the PMI to be normally sized and situated. Rhythm is regular. First and second heart sounds normal. No murmurs, rubs or gallops. Abdominal exam reveals normal bowel sounds, no masses, no organomegaly and no aortic enlargement. Extremities are nonedematous and both femoral and pedal pulses are normal. - Labs CBC & Chem 7: 05/28/17 08:16 05/28/17 08:16 Labs: Abnormal Lab Results - Last 24 Hours (Table) 05/28/17 05/28/17 Range/Units 08:16 08:16 WBC 18.5 H (3.8-10.6) k/uL RBC 4.18 L (4.30-5.90) m/uL Neutrophils # 17.2 H (1.3-7.7) k/uL Lymphocytes # 0.7 L (1.0-4.8) k/uL BUN 24 H (9-20) mg/dL Glucose 270 H (74-99) mg/dL Microbiology - Last 24 Hours (Table) 05/26/17 07:43 Blood Culture - Preliminary Blood No Growth after 48 hours Assessment and Plan Plan: Impression: #1 Right middle lobe pneumonia currently on a combination of Zosyn and Levaquin. #2 Acute exacerbation of chronic obstructive pulmonary disease secondary to above. FEV1 value 67% of predicted. #3 Chronic and ongoing tobacco dependence. #4 Hypertension. #5 Generalized anxiety disorder. Plan: The patient was seen and evaluated by Dr. Fitzpatrick. He is improving from the pulmonary standpoint. We'll continue with his current medications. He is again educated regarding the importance of complete smoking cessation. We'll increase his activity as tolerated. We'll repeat his chest x-ray in the a.m. Probable discharge in the next 24-48 hours.
[2017-05-28] MEDS: methylPREDNISolone SOD SUCCI 40 MG/ML 1 ML VIAL IV SCH (15:34)
[2017-05-28] MEDS: ALPRAZolam 0.5 MG TAB PO SCH (21:13)
[2017-05-28 23:10] VITALS: RESP 18
[2017-05-29] MEDS: PIPERACILLIN-TAZOBACTAM 3.375 GM in DEXTROSE/WATER 1 50ML.BAG IVPB SCH ×2 (00:38→08:45)
[2017-05-29] MEDS: methylPREDNISolone SOD SUCCI 40 MG/ML 1 ML VIAL IV SCH ×2 (00:38→08:45)
--- NOTE | 2017-05-29 07:25 | XR ---
EXAMINATION TYPE: XR chest 2V DATE OF EXAM: 05/29/2017 COMPARISON: 05/27/2017 HISTORY: 66-year-old male follow-up pneumonia TECHNIQUE: Frontal and lateral views FINDINGS: Heart is normal size. Aorta and pulmonary vasculature within normal limits. Mild interstitial promine nce and hyperinflation with flattening of the hemidiaphragms compatible with underlying COPD. There i s continued focal anterior right suprahilar/right upper lobe airspace opacity. No pleural effusion. IMPRESSION: COPD with continued medial right upper lobe airspace disease. Follow-up after treatment to ensure alyssa arance and exclude neoplastic causes of consolidation.
[2017-05-29 08:10] VITALS: BP 146/91; TEMP 97.2
[2017-05-29] MEDS: SYMBICORT 160-4.5 MCG INHALER INHALATION SCH (08:11)
[2017-05-29] MEDS: IPRATROPIUM-ALBUTEROL 3 ML NEB INHALATION SCH ×2 (08:11→11:40)
[2017-05-29 08:14] VITALS: PULSE 72
[2017-05-29] MEDS: guaiFENesin 600 MG TABLET.ER PO SCH (08:45)
[2017-05-29] MEDS: FAMOTIDINE 20 MG TAB PO SCH (08:45)
[2017-05-29] MEDS: LEVOFLOXACIN 750 MG TAB PO SCH (08:45)
[2017-05-29] MEDS: VALSARTAN 80 MG TAB PO SCH (08:45)
[2017-05-29] MEDS: ENOXAPARIN 40 MG/0.4 ML SYRINGE SQ SCH (08:46)
[2017-05-29 10:20] LABS: Anion Gap 9 mmol/L; Blood Urea Nitrogen 23 mg/dL (9-20); Calcium 8.5 mg/dL (8.4-10.2); Carbon Dioxide 23 mmol/L (22-30); Chloride 107 mmol/L (98-107); Glucose 223 mg/dL (74-99); Magnesium 1.9 mg/dL (1.6-2.3); Non-African American GFR(MDRD) >60 (>60 ml/min/1.73 sqM); Potassium 4.1 mmol/L (3.5-5.1); Sodium 139 mmol/L (137-145)
[2017-05-29] MEDS: SODIUM CHLORIDE 0.9% 1,000 ML IV SCH ×2 (12:39)
--- NOTE | 2017-05-29 13:31 | P.DS ---
Providers Date of admission: 05/26/17 09:40 Expected date of discharge: 05/29/17 Attending physician: Bernardo Arriaza Consults: 05/27/17 10:11 Consult Physician Routine Consulting Provider: Annie Fitzpatrick Consult Reason/Comments: pneumonia,copd Do you want consulting provider notified?: Yes Primary care physician: [facility] Course: Bronson is a 66-year-old white male well-known to me. He was admitted last week for exacerbation of COPD. He was cared for by my partner Dr. Arriaza. He came to the emergency room last night complaining of increasing pain. He was diagnosed with a right middle lobe pneumonia. He was placed on antibiotics and is on the floor now. He indicates he feels quite a bit better. He denies any chest pains pressures. Shortness of breath is only with exertion. No nausea or vomiting today. 05/28/2017: He was started on Symbicort and Spiriva, Solu-Medrol, and Mucinex. He overall feels improved. He's had a bowel movement today. He is getting up and ambulating at bedside and in the halls without any complaints of weakness. He is remaining smoke-free since his previous hospitalization indicates it he will continue to be smoke-free. He 05/29/2017: Patient was stable. He was cleared by pulmonology. He feels much improved. He is requesting discharge. Diagnosis sepsis, ruled out Right middle lobe pneumonia. COPD. Hypertension. Tobaccoism Patient Condition at Discharge: Serious Plan - Discharge Summary New Discharge Prescriptions: New Budesonide-Formot 160-4.5 Mcg [Symbicort 160-4.5 Mcg Inhaler] 2 puff INHALATION RT-BID #1 puff Levofloxacin [Levaquin] 750 mg PO DAILY@1000 #7 tab Umeclidinium [place] [Incruse Ellipta] 1 puff INHALATION DAILY #1 device Continue Valsartan [Diovan] 80 mg PO DAILY ALPRAZolam 1 mg PO HS HYDROcodone/APAP 10-325MG [[place] 10-325] 1 tab PO Q6H PRN PRN Reason: Pain Albuterol Sulfate [Proair Hfa] 1 - 2 puff INHALATION RT-Q4H PRN #1 PRN Reason: Shortness Of Breath predniSONE 40 mg PO DAILY #55 tab Discharge Medication List Valsartan [Diovan] 80 mg PO DAILY 04/27/16 [History] ALPRAZolam 1 mg PO HS 04/28/16 [History] HYDROcodone/APAP 10-325MG [[place] 10-325] 1 tab PO Q6H PRN 05/26/17 [History] Albuterol Sulfate [Proair Hfa] 1 - 2 puff INHALATION RT-Q4H PRN #1 05/29/17 [Rx ] Budesonide-Formot 160-4.5 Mcg [Symbicort 160-4.5 Mcg Inhaler] 2 puff INHALATION RT-BID #1 puff 05/29/17 [Rx] Levofloxacin [Levaquin] 750 mg PO DAILY@1000 #7 tab 05/29/17 [Rx] Umeclidinium [place] [Incruse Ellipta] 1 puff INHALATION DAILY #1 device [Rx] predniSONE 40 mg PO DAILY #55 tab 05/29/17 [Rx] Follow up Appointment(s)/Referral(s): Eris Culver MD [Primary Care Provider] - 06/03/17 Annie Fitzpatrick MD [STAFF PHYSICIAN] - 4 Weeks Patient Instructions/Handouts: Pneumonia (DC) Discharge Disposition: HOME SELF-CARE
--- NOTE | 2017-05-29 15:40 | P.PN ---
Subjective 66-year-old male patient with known history of COPD, coming into the hospital because of increased shortness of breath, chest congestion. The patient was having mainly pain over the right anterior chest area. He was in the hospital approximately a week ago and he was treated for the same he was discharged home on no antibiotics and he was given a prednisone burst taper. He continued to smoke. Is coming in with above-mentioned symptoms. Computed tomography scan of the chest was done and it showed a pneumonic infiltrate in the medial aspect/ segment of the right middle lobe. Based on that the patient was hospitalized and this was started on a combination of Zosyn and Levaquin. Feeling better. No pleurisy. No hemoptysis. No sick contacts. He is known to have moderate severe COPD with an FEV1 of 64% of predicted based on the pulmonary function status was done in December 2015. His diffusion capacity was at 98% of predicted and it's felt lung capacity is around 121% of predicted. We have given this patient Symbicort as maintenance over the end up getting the medication. Currently is on bronchodilators. He is receiving DuoNeb about treatments around the clock. He is also on IV Solu-Medrol. He is on a combination of Zosyn and Levaquin. The patient was seen again today 05/28/2017 in follow-up in the regular medical floor. He is awake and alert in no acute distress. He is breathing easier today as compared to yesterday. He has been afebrile. He is maintaining good O2 saturations in the 90s on room air. Her white count 18.5. He is continued on Zosyn and Levaquin. Blood culture shows no growth to date. She was seen again today 05/29/2017 in follow-up on the regular medical floor. He remains awake and alert in no acute distress. He is hoping to go home today. He has no pulmonary complaints. Blood and sputum cultures revealed no growth to date. Objective - Vital Signs Vital signs: Vital Signs Temp 97.2 F L 05/29/17 07:00 Pulse 72 05/29/17 11:54 Resp 18 05/29/17 07:00 BP 146/91 05/29/17 07:00 Pulse Ox 95 05/29/17 07:00 Intake & Output 05/28/17 05/29/17 05/29/17 18:59 06:59 18:59 Intake Total 600 240 Balance 600 240 Intake: Oral 600 240 Other: # Voids 4 2 - Exam The patient appeared well nourished and normally developed. Vital signs as documented. Head exam is unremarkable. No scleral icterus or corneal arcus noted. Neck is without jugular venous distension, thyromegaly, or carotid bruits. Carotid upstrokes are brisk bilaterally. Lungs are showing diminished breath sounds bilaterally along with some prolongation of the extremities of breathing.. Cardiac exam reveals the PMI to be normally sized and situated. Rhythm is regular. First and second heart sounds normal. No murmurs, rubs or gallops. Abdominal exam reveals normal bowel sounds, no masses, no organomegaly and no aortic enlargement. Extremities are nonedematous and both femoral and pedal pulses are normal. - Labs CBC & Chem 7: 05/28/17 08:16 05/29/17 09:29 Labs: Abnormal Lab Results - Last 24 Hours (Table) 05/29/17 Range/Units 09:29 BUN 23 H (9-20) mg/dL Glucose 223 H (74-99) mg/dL Microbiology - Last 24 Hours (Table) 05/29/17 07:28 Gram Stain - Preliminary Sputum 05/26/17 07:43 Blood Culture - Preliminary Blood No Growth after 72 hours Assessment and Plan Plan: Impression: #1 Right middle lobe pneumonia treated with a combination of Zosyn and Levaquin. #2 Acute exacerbation of chronic obstructive pulmonary disease secondary to above. FEV1 value 67% of predicted. #3 Chronic and ongoing tobacco dependence. #4 Hypertension. #5 Generalized anxiety disorder. Plan: The patient was seen and evaluated by Dr. Fitzpatrick. His chest x-ray was reviewed. He is cleared for discharge from the pulmonary standpoint. He'll complete a prednisone taper. Continue with Symbicort and bronchodilators. Complete his course of antibiotics. He is again educated regarding the importance of complete smoking cessation. He will follow-up in our office in 1- 2 weeks' time. We'll repeat a chest x-ray then. He is encouraged however to call sooner if any recurrence of symptoms or other questions or concerns.
== END 2017-05-29 14:11 | disposition home or self-care (01) | DRG 190 ==
LOC: EC 06:56 → 3SUR 09:40 → 4MS4W 22:42
PROVIDERS: ADMIT Family Medicine; ATTEND Family Medicine
DX: J44.0 Chronic obstructive pulmonary disease with (acute) lower respiratory infection (principal); J18.9 Pneumonia, unspecified organism; I71.2 Thoracic aortic aneurysm, without rupture; J44.1 Chronic obstructive pulmonary disease with (acute) exacerbation; F17.200 Nicotine dependence, unspecified, uncomplicated; F41.1 Generalized anxiety disorder; I10 Essential (primary) hypertension; Z79.899 Other long term (current) drug therapy; Z82.49 Family history of ischemic heart disease and other diseases of the circulatory system
CPT/HCPCS: 36415; 71020; 71275; 80048; 80053; 82550; 82553; 83036; 83605; 83735; 84484; 85025; 85379; 85610; 85730; 87040; 87070; 87205; 93005; 94640; 94760; 96361; 96365; 96375; 99285

== ENCOUNTER 2017-09-11 19:41 | Emergency (ER) | payer MEDICARE, OTHER ==
[2017-09-11 19:47] VITALS: TEMP 98.5
[2017-09-11] MEDS ORDERED: IPRATROPIUM 0.5 MG/2.5 ML NEBU INHALATION STA (19:48)
[2017-09-11] MEDS ORDERED: SODIUM CHLORIDE 0.9% 1,000 ML IV STA (19:48)
[2017-09-11] MEDS ORDERED: ALBUTEROL NEBULIZED 2.5 MG/3 ML INHALATION STA (19:48)
[2017-09-11] MEDS ORDERED: methylPREDNISolone SOD SUCCI 125 MG/2 ML VIAL IV STA (19:48)
[2017-09-11] MEDS ORDERED: SODIUM CHLORIDE 0.9% 500 ML IV STA (19:48)
--- NOTE | 2017-09-11 20:17 | ED ---
General Adult HPI - General Chief complaint: Shortness of Breath Stated complaint: SOB Time Seen by Provider: 09/11/17 19:48 Source: patient, RN notes reviewed, old records reviewed Mode of arrival: ambulatory Limitations: no limitations - History of Present Illness Initial comments: This is a 66-year-old male to the ER for evaluation. Patient notes the upper cough congestion shortness of breath. Positive history of smoking continues to smoke, history of COPD. Admitted to the hospital about a month ago for pneumonia. Patient is breathing was much worse of the time with fevers. Denies fever or chest pain at this time. Patient a breathing treatment today with no significant improvement. Patient denies any other significant complaints, no bowel pain. Again no chest pain - Related Data Home Medications Medication Instructions Recorded Confirmed Valsartan [Diovan] 80 mg PO DAILY 04/27/16 09/11/17 ALPRAZolam 1 mg PO HS 04/28/16 09/11/17 Albuterol Inhaler [Ventolin Hfa 1 - 2 puff INHALATION RT-QID PRN 09/11/17 Inhaler] Albuterol Nebulized [Ventolin 2.5 mg INHALATION RT-QID PRN 09/11/17 09/11/17 Nebulized] Varenicline Tartrate [Chantix] See Taper PO DIRECTED 09/11/17 09/11/17 Allergies Allergy/AdvReac Type Severity Reaction Status Date / Time No Known Allergies Allergy Verified 09/11/17 20:24 Review of Systems ROS Statement: Those systems with pertinent positive or pertinent negative responses have been documented in the HPI. ROS Other: All systems not noted in ROS Statement are negative. Past Medical History Past Medical History: COPD, Eye Disorder, Hypertension Additional Past Medical History / Comment(s): cataracts History of Any Multi-Drug Resistant Organisms: MRSA Date of last positivie culture/infection: 05/29/17 MDRO Source:: sputum Past Surgical History: No Surgical Hx Reported Additional Past Surgical History / Comment(s): jaw surgery. rt/lf cataract sx Past Anesthesia/Blood Transfusion Reactions: No Reported Reaction Additional Past Anesthesia/Blood Transfusion Reaction / Comment(s): no family problems Past Psychological History: Anxiety Smoking Status: Former smoker Past Alcohol Use History: None Reported Past Drug Use History: Marijuana - Past Family History Mother Family Medical History: No Reported History Father Family Medical History: Myocardial Infarction ([place]) Additional Family Medical History / Comment(s): of heart attack General Exam Limitations: no limitations General appearance: alert, in no apparent distress, anxious Head exam: Present: atraumatic, normocephalic, normal inspection Eye exam: Present: normal appearance, PERRL, EOMI. Absent: scleral icterus, conjunctival injection, periorbital swelling ENT exam: Present: normal exam, mucous membranes moist Neck exam: Present: normal inspection. Absent: tenderness, meningismus, lymphadenopathy Respiratory exam: Present: normal lung sounds bilaterally, wheezes, accessory muscle use, decreased breath sounds, prolonged expiratory. Absent: respiratory distress, rales, rhonchi, stridor Cardiovascular Exam: Present: regular rate, normal rhythm, normal heart sounds. Absent: systolic murmur, diastolic murmur, rubs, gallop, clicks GI/Abdominal exam: Present: soft, normal bowel sounds. Absent: distended, tenderness, guarding, rebound, rigid Extremities exam: Present: normal inspection, full ROM, normal capillary refill. Absent: tenderness, pedal edema, joint swelling, calf tenderness Back exam: Present: normal inspection Neurological exam: Present: alert, oriented X3, CN II-XII intact Psychiatric exam: Present: normal affect, normal mood Skin exam: Present: warm, dry, intact, normal color. Absent: rash Course Vital Signs 09/11/17 09/11/17 09/11/17 19:43 20:10 20:12 Temperature 98.5 F Pulse Rate 79 80 Respiratory 20 20 Rate Blood Pressure 178/91 O2 Sat by Pulse 96 Oximetry 09/11/17 09/11/17 20:26 20:46 Temperature Pulse Rate 86 87 Respiratory 18 Rate Blood Pressure 154/67 O2 Sat by Pulse 98 Oximetry - Reevaluation(s) Reevaluation #1: 09/11/17 20:52 At this point patient has significant improvement after prolonged breathing treatment, asking to go home EKG Findings - EKG Comments: EKG Findings:: EKG shows normal sinus rhythm rate of 76, PA 170, QRS 76, QTc 432 Medical Decision Making - Medical Decision Making 67 mL ER for evaluation of cough congestion worsening breathing. Patient is improved at 1 breathing treatment, given hydration steroids here in the ER x- rays negative for pneumonia, patient will be discharged home on steroids and antibiotics - Lab Data Result diagrams: 09/11/17 20:09 09/11/17 20:09 Lab Results 09/11/17 09/11/17 09/11/17 Range/Units 20:09 20:09 20:09 WBC 6.4 (3.8-10.6) k/uL RBC 4.30 (4.30-5.90) m/uL Hgb 12.6 L (13.0-17.5) gm/dL Hct 38.9 L (39.0-53.0) % MCV 90.6 (80.0-100.0) fL MCH 29.3 (25.0-35.0) pg MCHC 32.4 (31.0-37.0) g/dL RDW 14.3 (11.5-15.5) % Plt Count 263 (150-450) k/uL Neutrophils % 58 % Lymphocytes % 26 % Monocytes % 6 % Eosinophils % 8 % Basophils % 1 % Neutrophils # 3.7 (1.3-7.7) k/uL Lymphocytes # 1.7 (1.0-4.8) k/uL Monocytes # 0.4 (0-1.0) k/uL Eosinophils # 0.5 (0-0.7) k/uL Basophils # 0.0 (0-0.2) k/uL PT (9.0-12.0) sec INR (<1.2) APTT (22.0-30.0) sec Sodium 140 (137-145) mmol/L Potassium 4.1 (3.5-5.1) mmol/L Chloride 109 H (98-107) mmol/L Carbon Dioxide 22 (22-30) mmol/L Anion Gap 9 mmol/L BUN 16 (9-20) mg/dL Creatinine 0.90 (0.66-1.25) mg/dL Est GFR (MDRD) Af Amer >60 (>60 ml/min/1.73 sqM) Est GFR (MDRD) Non-Af >60 (>60 ml/min/1.73 sqM) Glucose 106 H (74-99) mg/dL Calcium 8.9 (8.4-10.2) mg/dL Magnesium 2.0 (1.6-2.3) mg/dL Total Bilirubin 0.3 (0.2-1.3) mg/dL AST 21 (17-59) U/L ALT 33 (21-72) U/L Alkaline Phosphatase 78 (38-126) U/L Total Creatine Kinase 59 (55-170) U/L Total Protein 6.6 (6.3-8.2) g/dL Albumin 3.5 (3.5-5.0) g/dL 09/11/17 Range/Units 20:09 WBC (3.8-10.6) k/uL RBC (4.30-5.90) m/uL Hgb (13.0-17.5) gm/dL Hct (39.0-53.0) % MCV (80.0-100.0) fL MCH (25.0-35.0) pg MCHC (31.0-37.0) g/dL RDW (11.5-15.5) % Plt Count (150-450) k/uL Neutrophils % % Lymphocytes % % Monocytes % % Eosinophils % % Basophils % % Neutrophils # (1.3-7.7) k/uL Lymphocytes # (1.0-4.8) k/uL Monocytes # (0-1.0) k/uL Eosinophils # (0-0.7) k/uL Basophils # (0-0.2) k/uL PT 10.4 (9.0-12.0) sec INR 1.0 (<1.2) APTT 25.9 (22.0-30.0) sec Sodium (137-145) mmol/L Potassium (3.5-5.1) mmol/L Chloride (98-107) mmol/L Carbon Dioxide (22-30) mmol/L Anion Gap mmol/L BUN (9-20) mg/dL Creatinine (0.66-1.25) mg/dL Est GFR (MDRD) Af Amer (>60 ml/min/1.73 sqM) Est GFR (MDRD) Non-Af (>60 ml/min/1.73 sqM) Glucose (74-99) mg/dL Calcium (8.4-10.2) mg/dL Magnesium (1.6-2.3) mg/dL Total Bilirubin (0.2-1.3) mg/dL AST (17-59) U/L ALT (21-72) U/L Alkaline Phosphatase (38-126) U/L Total Creatine Kinase (55-170) U/L Total Protein (6.3-8.2) g/dL Albumin (3.5-5.0) g/dL - Radiology Data Radiology results: report reviewed (Chest x-ray is negative for acute disease), image reviewed Disposition Clinical Impression: Acute exacerbation of chronic obstructive airways disease, COPD exacerbation, COPD with acute exacerbation Disposition: HOME SELF-CARE Condition: Good Instructions: Acute Bronchitis (ED), Chronic Bronchitis (ED) Referrals: Eris Culver MD [Primary Care Provider] - 1-2 days
[2017-09-11 20:22] LABS: Basophils % (A) 1 %; CH 29.4; CHCM 32.6; Eosinophils # (A) 0.5 k/uL (0-0.7); Eosinophils % (A) 8 %; HCT 38.9 % (39.0-53.0); HDW 2.65; HGB 12.6 gm/dL (13.0-17.5); Luc # (Auto) 0.08; Luc % (Auto) 1; Lymphocytes # (A) 1.7 k/uL (1.0-4.8); Lymphocytes % (A) 26 %; MCH 29.3 pg (25.0-35.0); MCHC 32.4 g/dL (31.0-37.0); MCV 90.6 fL (80.0-100.0); Mean Platelet Volume 7.9; Monocytes # (A) 0.4 k/uL (0-1.0); Monocytes % (A) 6 %; Neutrophils # (A) 3.7 k/uL (1.3-7.7); Neutrophils % (A) 58 %; RDW 14.3 % (11.5-15.5); WBC 6.4 k/uL (3.8-10.6)
[2017-09-11 20:30] LABS: Partial Thromboplastin Time 25.9 sec (22.0-30.0); Prothrombin Time 10.4 sec (9.0-12.0)
[2017-09-11 20:35] LABS: ALT 33 U/L (21-72); AST 21 U/L (17-59); Alkaline Phosphatase 78 U/L (38-126); Anion Gap 9 mmol/L; Blood Urea Nitrogen 16 mg/dL (9-20); Calcium 8.9 mg/dL (8.4-10.2); Carbon Dioxide 22 mmol/L (22-30); Chloride 109 mmol/L (98-107); Glucose 106 mg/dL (74-99); Non-African American GFR(MDRD) >60 (>60 ml/min/1.73 sqM); Potassium 4.1 mmol/L (3.5-5.1); Sodium 140 mmol/L (137-145); Total Bilirubin 0.3 mg/dL (0.2-1.3); Total Protein 6.6 g/dL (6.3-8.2)
[2017-09-11 20:43] LABS: Creatine Kinase 59 U/L (55-170)
[2017-09-11 20:47] VITALS: BP 154/67; PULSE 87; RESP 18
[2017-09-11 20:56] LABS: Creatine Kinase MB 0.8 ng/mL (0.0-2.4); Troponin I <0.012 ng/mL (0.000-0.034)
--- NOTE | 2017-09-11 21:09 | XR ---
EXAMINATION TYPE: XR chest 2V DATE OF EXAM: 09/11/2017 COMPARISON: 05/29/2017 HISTORY: Difficulty breathing TECHNIQUE: Frontal and lateral views of the chest are obtained. FINDINGS: There is no heart failure nor confluent pneumonic infiltrate. Heart size is normal. Thorac ic aorta is atheromatous. There is no pleural effusion. There is mild pulmonary hyperinflation. There are chest leads. IMPRESSION: No active cardiopulmonary disease. There is clearing of infiltrate in the anterior right upper lobe compared to last exam. There is probably COPD.
== END 2017-09-11 21:28 | disposition home or self-care (01) ==
LOC: EC 19:41
DX: J44.1 Chronic obstructive pulmonary disease with (acute) exacerbation (principal); I10 Essential (primary) hypertension; F41.9 Anxiety disorder, unspecified; Z87.891 Personal history of nicotine dependence; Z79.899 Other long term (current) drug therapy
CPT/HCPCS: 36415; 94644; 93005; 83880; 80053; 82550; 82553; 83735; 84484; 85025; 85610; 85730; 71020; 99285; 96374; 96361; J2930

== ENCOUNTER 2018-02-26 17:55 | Emergency (ER) | payer MEDICARE, OTHER ==
--- NOTE | 2018-02-26 18:37 | XR ---
EXAMINATION TYPE: XR chest 2V DATE OF EXAM: 02/26/2018 COMPARISON: 09/11/2017 HISTORY: Cough TECHNIQUE: Frontal and lateral views of the chest are obtained. FINDINGS: There is no heart failure nor confluent pneumonic infiltrate. There is mild pulmonary hype rinflation. Heart size is normal. There are no hilar masses. Bony thorax is intact. IMPRESSION: There is probably some COPD. No active cardiopulmonary disease. No change.
[2018-02-26] MEDS ORDERED: methylPREDNISolone SOD SUCCI 125 MG/2 ML VIAL IV STA (20:46)
[2018-02-26] MEDS ORDERED: IPRATROPIUM-ALBUTEROL 3 ML NEB INHALATION STA ×2 (20:46→22:09)
--- NOTE | 2018-02-26 20:52 | ED ---
General Adult HPI <Jatinder Dobson - Last Filed: 02/26/18 22:17> - General Source: patient Mode of arrival: ambulatory Limitations: no limitations <Dayna Lerma - Last Filed: 02/27/18 01:09> - General Chief complaint: Upper Respiratory Infection Stated complaint: flu symptoms, Hx copd Time Seen by Provider: 02/26/18 20:12 - History of Present Illness Initial comments: 67-year-old male patient presents to the emergency department today for complaints of weakness, shortness of breath, increased sputum production, and headaches 2 weeks. Patient states that he does have a history of COPD and does occasionally get the issues with his breathing and coughing. States that his sputum is "dark" in color. Patient states that the weakness, headaches, and neck discomfort are new. Patient states that he has had intermittent fevers with chills over the last couple of weeks. Does not have a thermometer so he has not been able to check his temperature. He denies any rash, nausea, vomiting, chest pain, dizziness, blurred vision, or double vision. Patient denies any recent rash, abdominal pain, diarrhea, constipation, back pain, numbness, tingling, hematuria, dysuria, urinary urgency, urinary frequency, or any other complaints. Patient states he smokes approximately 2-3 cigarettes per day, but reports smoked a ppd for the last 50 years. States he has been doing his home breathing treatments which are not helping. (Dayna Lerma) - Related Data Home Medications Medication Instructions Recorded Confirmed Valsartan [Diovan] 80 mg PO DAILY 04/27/16 02/26/18 ALPRAZolam 1 mg PO HS 04/28/16 02/26/18 Albuterol Inhaler [Ventolin Hfa 1 - 2 puff INHALATION RT-QID PRN 09/11/17 Inhaler] Albuterol Nebulized [Ventolin 2.5 mg INHALATION RT-QID PRN 09/11/17 02/26/18 Nebulized] Hydrocodone/Acetaminophen [Emmons 1 tab PO QID 02/26/18 02/26/18 10-325] Umeclidinium Counselor [Incruse 1 puff INHALATION RT-DAILY 02/26/18 02/26/18 Ellipta] Previous Rx's Medication Instructions Recorded Azithromycin [Zithromax Z-pack] 0 mg PO DIRECTED #6 tab 02/26/18 predniSONE 50 mg PO DAILY #5 tablet 02/26/18 Allergies Allergy/AdvReac Type Severity Reaction Status Date / Time No Known Allergies Allergy Verified 02/26/18 20:41 Review of Systems ROS Other: All systems not noted in ROS Statement are negative. <Jatinder Dobson - Last Filed: 02/26/18 22:17> ROS Other: All systems not noted in ROS Statement are negative. <Dayna Lerma - Last Filed: 02/27/18 01:09> ROS Statement: Those systems with pertinent positive or pertinent negative responses have been documented in the HPI. Past Medical History Past Medical History: COPD, Eye Disorder, Hypertension Additional Past Medical History / Comment(s): cataracts History of Any Multi-Drug Resistant Organisms: MRSA Date of last positivie culture/infection: 05/29/17 MDRO Source:: sputum Past Surgical History: No Surgical Hx Reported Additional Past Surgical History / Comment(s): jaw surgery. rt/lf cataract sx Past Anesthesia/Blood Transfusion Reactions: No Reported Reaction Additional Past Anesthesia/Blood Transfusion Reaction / Comment(s): no family problems Past Psychological History: Anxiety Smoking Status: Former smoker Past Alcohol Use History: None Reported Past Drug Use History: Marijuana - Past Family History Mother Family Medical History: No Reported History Father Family Medical History: Myocardial Infarction ([place]) Additional Family Medical History / Comment(s): of heart attack <Dayna Lerma - Last Filed: 02/27/18 01:09> General Exam Limitations: no limitations General appearance: alert, in no apparent distress, other (This is a well- developed, well-nourished adult male patient in no acute distress. Vital signs upon presentation are temperature 98.8F, pulse 98, respirations 20, blood pressure 188/90, pulse ox 94% on room air.) Eye exam: Present: normal appearance, PERRL, EOMI. Absent: scleral icterus, conjunctival injection, periorbital swelling ENT exam: Present: normal exam, normal oropharynx, mucous membranes moist, TM's normal bilaterally Neck exam: Present: normal inspection, full ROM. Absent: tenderness, meningismus, lymphadenopathy Respiratory exam: Present: wheezes (Diffuse expiratory wheezing to all posterior lung oshea, good air movement). Absent: normal lung sounds bilaterally, respiratory distress, rales, rhonchi, stridor Cardiovascular Exam: Present: regular rate, normal rhythm, normal heart sounds. Absent: systolic murmur, diastolic murmur, rubs, gallop, clicks GI/Abdominal exam: Present: soft, normal bowel sounds. Absent: distended, tenderness, guarding, rebound, rigid Back exam: Present: normal inspection. Absent: vertebral tenderness Neurological exam: Present: alert, oriented X3, CN II-XII intact Psychiatric exam: Present: normal affect, normal mood Skin exam: Present: warm, dry, intact, normal color. Absent: rash <Dayna Lerma - Last Filed: 02/27/18 01:09> Course <Jatinder Dobson - Last Filed: 02/26/18 22:17> <Dayna Lerma - Last Filed: 02/27/18 01:09> Vital Signs 02/26/18 02/26/18 02/26/18 18:10 21:03 21:04 Temperature 98.8 F 98.1 F Pulse Rate 98 87 84 Respiratory 20 20 Rate Blood Pressure 188/90 173/104 O2 Sat by Pulse 94 L 94 L Oximetry 02/26/18 02/26/18 02/26/18 21:18 22:41 22:45 Temperature 98.6 F Pulse Rate 86 83 84 Respiratory 20 Rate Blood Pressure 164/78 O2 Sat by Pulse 93 L Oximetry 02/26/18 02/26/18 22:58 23:00 Temperature 98.4 F Pulse Rate 84 93 Respiratory 18 Rate Blood Pressure 131/81 O2 Sat by Pulse 94 L Oximetry - Reevaluation(s) Reevaluation #1: 02/26/18 22:18 And P supervision: I did personally do a [id number] evaluation the patient and did discuss the findings with him. Patient is feeling improved he is a candidate for outpatient treatment and will be placed on steroids with follow- up with his doctor. He is in agreement with this. I do agree with the assessment and plan. (Jatinder Dobson) EKG Findings - EKG Comments: EKG Findings:: EKG obtained at 2111 shows sinus rhythm with PACs. Septal infarct of indeterminate age, patient does exhibit some T-wave inversion in V2, this was not present in previous EKG in 08/2017. Ventricular rate is 83, NY interval 158, QRS duration 76, QT 384, QTC 451. No evidence of ST elevation or depression. <Dayna Lerma - Last Filed: 02/27/18 01:09> Medical Decision Making - Lab Data Result diagrams: 02/26/18 20:16 02/26/18 20:16 <Jatinder Dobson - Last Filed: 02/26/18 22:17> - Lab Data Result diagrams: 02/26/18 20:16 02/26/18 20:16 - Radiology Data Radiology results: report reviewed, image reviewed <Dayna Lerma - Last Filed: 02/27/18 01:09> - Medical Decision Making 67-year-old male patient presented to the emergency department today for evaluation of cough, shortness of breath, and weakness. Physical examination did reveal diffuse expiratory wheezing to all posterior lung oshea. Labs reviewed and are unremarkable. Chest x-ray was negative for any acute cardiopulmonary process. Patient did have some hypoxia with an oxygen saturation of 94% on room air. Patient did have slight improvement of symptoms with DuoNeb breathing treatments and IV steroids. I did discuss findings with the patient and probable diagnosis of COPD exacerbation. I discussed possible admission versus discharge. Patient requested to be discharged at this time. We will give prescription for steroids and azithromycin. He is instructed to follow-up with his primary care physician for recheck in 1-2 days. Return parameters discussed in detail. He verbalizes understanding and agreed with this plan. (Dayna Lerma) - Lab Data Lab Results 02/26/18 02/26/18 02/26/18 Range/Units 20:16 20:16 20:16 WBC 8.8 (3.8-10.6) k/uL RBC 4.40 (4.30-5.90) m/uL Hgb 13.3 (13.0-17.5) gm/dL Hct 38.4 L (39.0-53.0) % MCV 87.3 (80.0-100.0) fL MCH 30.2 (25.0-35.0) pg MCHC 34.6 (31.0-37.0) g/dL RDW 13.4 (11.5-15.5) % Plt Count 241 (150-450) k/uL Neutrophils % 69 % Lymphocytes % 19 % Monocytes % 6 % Eosinophils % 3 % Basophils % 0 % Neutrophils # 6.1 (1.3-7.7) k/uL Lymphocytes # 1.7 (1.0-4.8) k/uL Monocytes # 0.6 (0-1.0) k/uL Eosinophils # 0.3 (0-0.7) k/uL Basophils # 0.0 (0-0.2) k/uL PT (9.0-12.0) sec INR (<1.2) APTT (22.0-30.0) sec Sodium 140 (137-145) mmol/L Potassium 4.7 (3.5-5.1) mmol/L Chloride 105 (98-107) mmol/L Carbon Dioxide 22 (22-30) mmol/L Anion Gap 13 mmol/L BUN 19 (9-20) mg/dL Creatinine 0.93 (0.66-1.25) mg/dL Est GFR (CKD-EPI)AfAm >90 (>60 ml/min/1.73 sqM) Est GFR (CKD-EPI)NonAf 84 (>60 ml/min/1.73 sqM) Glucose 110 H (74-99) mg/dL Calcium 9.0 (8.4-10.2) mg/dL Magnesium 2.2 (1.6-2.3) mg/dL Total Bilirubin 0.4 (0.2-1.3) mg/dL AST 33 (17-59) U/L ALT 28 (21-72) U/L Alkaline Phosphatase 94 (38-126) U/L Total Creatine Kinase 73 (55-170) U/L CK-MB (CK-2) 1.2 (0.0-2.4) ng/mL CK-MB (CK-2) Rel Index 1.6 Troponin I <0.012 (0.000-0.034) ng/mL Total Protein 6.8 (6.3-8.2) g/dL Albumin 3.9 (3.5-5.0) g/dL Influenza Type A RNA (Not Detectd) Influenza Type B (PCR) (Not Detectd) 02/26/18 02/26/18 Range/Units 20:16 21:01 WBC (3.8-10.6) k/uL RBC (4.30-5.90) m/uL Hgb (13.0-17.5) gm/dL Hct (39.0-53.0) % MCV (80.0-100.0) fL MCH (25.0-35.0) pg MCHC (31.0-37.0) g/dL RDW (11.5-15.5) % Plt Count (150-450) k/uL Neutrophils % % Lymphocytes % % Monocytes % % Eosinophils % % Basophils % % Neutrophils # (1.3-7.7) k/uL Lymphocytes # (1.0-4.8) k/uL Monocytes # (0-1.0) k/uL Eosinophils # (0-0.7) k/uL Basophils # (0-0.2) k/uL PT 9.9 (9.0-12.0) sec INR 1.0 (<1.2) APTT 24.6 (22.0-30.0) sec Sodium (137-145) mmol/L Potassium (3.5-5.1) mmol/L Chloride (98-107) mmol/L Carbon Dioxide (22-30) mmol/L Anion Gap mmol/L BUN (9-20) mg/dL Creatinine (0.66-1.25) mg/dL Est GFR (CKD-EPI)AfAm (>60 ml/min/1.73 sqM) Est GFR (CKD-EPI)NonAf (>60 ml/min/1.73 sqM) Glucose (74-99) mg/dL Calcium (8.4-10.2) mg/dL Magnesium (1.6-2.3) mg/dL Total Bilirubin (0.2-1.3) mg/dL AST (17-59) U/L ALT (21-72) U/L Alkaline Phosphatase (38-126) U/L Total Creatine Kinase (55-170) U/L CK-MB (CK-2) (0.0-2.4) ng/mL CK-MB (CK-2) Rel Index Troponin I (0.000-0.034) ng/mL Total Protein (6.3-8.2) g/dL Albumin (3.5-5.0) g/dL Influenza Type A RNA Not Detected (Not Detectd) Influenza Type B (PCR) Not Detected (Not Detectd) - Radiology Data Two-view x-ray of the chest shows no heart failure nor confluent pneumonic infiltrate. There is mild pulmonary hyperinflation. Heart size is normal. There are no hilar masses. Bony thorax is intact. Impression by Dr. Hassan shows probably some COPD. No active cardiopulmonary disease. No change. ( Dayna Lerma) Disposition <Jatinder Dobson - Last Filed: 02/26/18 22:17> Is patient prescribed a controlled substance at d/c from ED?: No <Dayna Lerma - Last Filed: 02/27/18 01:09> Clinical Impression: COPD exacerbation Disposition: HOME SELF-CARE Condition: Good Instructions: COPD (Chronic Obstructive Pulmonary Disease) (ED) Additional Instructions: Take medications as directed. Follow up with your primary care physician for recheck in 1-2 days. Return here immediately for any new, worsening, or concerning symptoms. Prescriptions: Azithromycin [Zithromax Z-pack] 0 mg PO DIRECTED #6 tab predniSONE 50 mg PO DAILY #5 tablet Referrals: Eris Culver MD [Primary Care Provider] - 1-2 days
[2018-02-26 21:02] LABS: Basophils % (A) 0 %; Eosinophils # (A) 0.3 k/uL (0-0.7); Eosinophils % (A) 3 %; HCT 38.4 % (39.0-53.0); HGB 13.3 gm/dL (13.0-17.5); Lymphocytes # (A) 1.7 k/uL (1.0-4.8); Lymphocytes % (A) 19 %; MCH 30.2 pg (25.0-35.0); MCHC 34.6 g/dL (31.0-37.0); MCV 87.3 fL (80.0-100.0); Mean Platelet Volume 7.8; Monocytes # (A) 0.6 k/uL (0-1.0); Monocytes % (A) 6 %; Neutrophils # (A) 6.1 k/uL (1.3-7.7); Neutrophils % (A) 69 %; Platelet Count 241 k/uL (150-450); RDW 13.4 % (11.5-15.5); WBC 8.8 k/uL (3.8-10.6)
[2018-02-26 21:13] LABS: ALT 28 U/L (21-72); AST 33 U/L (17-59); Albumin 3.9 g/dL (3.5-5.0); Alkaline Phosphatase 94 U/L (38-126); Anion Gap 13 mmol/L; Blood Urea Nitrogen 19 mg/dL (9-20); Carbon Dioxide 22 mmol/L (22-30); Chloride 105 mmol/L (98-107); Glucose 110 mg/dL (74-99); Magnesium 2.2 mg/dL (1.6-2.3); Partial Thromboplastin Time 24.6 sec (22.0-30.0); Potassium 4.7 mmol/L (3.5-5.1); Prothrombin Time 9.9 sec (9.0-12.0); Sodium 140 mmol/L (137-145); Total Bilirubin 0.4 mg/dL (0.2-1.3); Total Protein 6.8 g/dL (6.3-8.2)
[2018-02-26 21:24] LABS: Creatine Kinase 73 U/L (55-170)
[2018-02-26 21:37] LABS: Creatine Kinase MB 1.2 ng/mL (0.0-2.4); Troponin I <0.012 ng/mL (0.000-0.034)
[2018-02-26] MEDS ORDERED: KETOROLAC 30 MG/ML 1 ML VIAL IVP STA (22:09)
[2018-02-26] MEDS ORDERED: ENALAPRILAT 1.25 MG/ML 1 ML VIAL IVP STA (22:11)
[2018-02-26 23:01] VITALS: BP 131/81; PULSE 93; RESP 18; TEMP 98.4
== END 2018-02-26 23:03 | disposition home or self-care (01) ==
LOC: EC 17:55
DX: J44.1 Chronic obstructive pulmonary disease with (acute) exacerbation (principal); R53.1 Weakness; R51 Headache; M54.2 Cervicalgia; I10 Essential (primary) hypertension; F41.9 Anxiety disorder, unspecified; Z87.891 Personal history of nicotine dependence; Z79.51 Long term (current) use of inhaled steroids; Z79.899 Other long term (current) drug therapy; Z53.8 Procedure and treatment not carried out for other reasons
CPT/HCPCS: 36415; 94640 ×2; 93005; 80053; 82550; 82553; 83735; 84484; 85025; 85610; 85730; 87502; 71046; 99284; 96374; 96375; J2930; J1885

== ENCOUNTER 2018-05-06 14:40 | Inpatient (IN) | payer MEDICARE, OTHER ==
[2018-05-06] MEDS ORDERED: IPRATROPIUM 0.5 MG/2.5 ML NEBU INHALATION STA (15:14)
[2018-05-06] MEDS ORDERED: SODIUM CHLORIDE 0.9% 1,000 ML IV STA (15:14)
[2018-05-06] MEDS ORDERED: ALBUTEROL NEBULIZED 2.5 MG/3 ML INHALATION STA (15:14)
[2018-05-06] MEDS ORDERED: methylPREDNISolone SOD SUCCI 125 MG/2 ML VIAL IV STA (15:14)
[2018-05-06] MEDS ORDERED: KETOROLAC 30 MG/ML 1 ML VIAL IVP STA (15:14)
[2018-05-06] MEDS ORDERED: ACETAMINOPHEN IV (For NPO) 1,000 MG in EMPTY BAG 1 BAG IVPB STA (15:16)
[2018-05-06] MEDS ORDERED: AZITHROMYCIN 500 MG in DEXTROSE 5% IN WATER 250 ML IVPB STA ×2 (15:17)
--- NOTE | 2018-05-06 15:34 | ED ---
General Adult HPI - General Chief complaint: Shortness of Breath Stated complaint: SOB Time Seen by Provider: 05/06/18 15:14 Source: patient, RN notes reviewed, old records reviewed Mode of arrival: ambulatory Limitations: no limitations - History of Present Illness Initial comments: This is a 59-year-old male the ER for evasive shortness of breath. Patient has severe history of lung disease COPD and states he does not feel well. Patient had a diaphoretic. Short of breath increased cough and congestion - Related Data Home Medications Medication Instructions Recorded Confirmed Valsartan [Diovan] 80 mg PO DAILY 04/27/16 05/06/18 ALPRAZolam 1 mg PO HS 04/28/16 05/06/18 Albuterol Inhaler [Ventolin Hfa 1 - 2 puff INHALATION RT-QID PRN 09/11/17 Inhaler] Albuterol Nebulized [Ventolin 2.5 mg INHALATION RT-QID PRN 09/11/17 05/06/18 Nebulized] Hydrocodone/Acetaminophen [Hana 1 tab PO QID 02/26/18 05/06/18 10-325] Umeclidinium Clifford [Incruse 1 puff INHALATION RT-DAILY 02/26/18 05/06/18 Ellipta] Allergies Allergy/AdvReac Type Severity Reaction Status Date / Time No Known Allergies Allergy Verified 05/06/18 15:51 Review of Systems ROS Statement: Those systems with pertinent positive or pertinent negative responses have been documented in the HPI. ROS Other: All systems not noted in ROS Statement are negative. Past Medical History Past Medical History: COPD, Eye Disorder, Hypertension Additional Past Medical History / Comment(s): cataracts History of Any Multi-Drug Resistant Organisms: MRSA Date of last positivie culture/infection: 05/29/17 MDRO Source:: sputum Past Surgical History: No Surgical Hx Reported Additional Past Surgical History / Comment(s): jaw surgery. rt/lf cataract sx Past Anesthesia/Blood Transfusion Reactions: No Reported Reaction Additional Past Anesthesia/Blood Transfusion Reaction / Comment(s): no family problems Past Psychological History: Anxiety Smoking Status: Former smoker Past Alcohol Use History: None Reported Past Drug Use History: Marijuana - Past Family History Mother Family Medical History: No Reported History Father Family Medical History: Myocardial Infarction ([place]) Additional Family Medical History / Comment(s): of heart attack General Exam Limitations: no limitations General appearance: alert, in no apparent distress, anxious Head exam: Present: atraumatic, normocephalic, normal inspection Eye exam: Present: normal appearance, PERRL, EOMI. Absent: scleral icterus, conjunctival injection, periorbital swelling ENT exam: Present: normal exam, mucous membranes moist Neck exam: Present: normal inspection. Absent: tenderness, meningismus, lymphadenopathy Respiratory exam: Present: normal lung sounds bilaterally, respiratory distress , wheezes, accessory muscle use, decreased breath sounds, prolonged expiratory. Absent: rales, rhonchi, stridor Cardiovascular Exam: Present: normal rhythm, tachycardia, normal heart sounds. Absent: systolic murmur, diastolic murmur, rubs, gallop, clicks GI/Abdominal exam: Present: soft, normal bowel sounds. Absent: distended, tenderness, guarding, rebound, rigid Extremities exam: Present: normal inspection, full ROM, normal capillary refill. Absent: tenderness, pedal edema, joint swelling, calf tenderness Back exam: Present: normal inspection Neurological exam: Present: alert, oriented X3, CN II-XII intact Psychiatric exam: Present: normal affect, normal mood Skin exam: Present: warm, dry, intact, normal color. Absent: rash Course Vital Signs 05/06/18 05/06/18 05/06/18 14:42 15:55 16:18 Temperature 102.1 F H Pulse Rate 111 H 99 Respiratory 30 H 22 Rate Blood Pressure 176/87 O2 Sat by Pulse 93 L Oximetry 05/06/18 05/06/18 16:25 16:49 Temperature 100.5 F H Pulse Rate 100 103 H Respiratory 18 Rate Blood Pressure 102/59 O2 Sat by Pulse 99 Oximetry EKG Findings - EKG Comments: EKG Findings:: EKG shows sinus tach cardia rate 102, NY 150, QRS 72, QTc 443 Medical Decision Making - Medical Decision Making 67 male the ER for eversion cough congestion fever. Acute bronchitis hypoxia and persistent pneumonia. Patient placed on antibiotics breathing treatments, will admit for monitoring of cardiopulmonary status improvement - Lab Data Result diagrams: 05/06/18 15:50 05/06/18 15:50 Lab Results 05/06/18 05/06/18 05/06/18 Range/Units 15:50 15:50 15:50 WBC 13.5 H (3.8-10.6) k/uL RBC 4.45 (4.30-5.90) m/uL Hgb 13.3 (13.0-17.5) gm/dL Hct 39.8 (39.0-53.0) % MCV 89.4 (80.0-100.0) fL MCH 29.8 (25.0-35.0) pg MCHC 33.4 (31.0-37.0) g/dL RDW 15.0 (11.5-15.5) % Plt Count 205 (150-450) k/uL Neutrophils % 83 % Lymphocytes % 10 % Monocytes % 4 % Eosinophils % 1 % Basophils % 0 % Neutrophils # 11.2 H (1.3-7.7) k/uL Lymphocytes # 1.4 (1.0-4.8) k/uL Monocytes # 0.6 (0-1.0) k/uL Eosinophils # 0.1 (0-0.7) k/uL Basophils # 0.0 (0-0.2) k/uL PT (9.0-12.0) sec INR (<1.2) APTT (22.0-30.0) sec Sodium 133 L (137-145) mmol/L Potassium 4.2 (3.5-5.1) mmol/L Chloride 100 (98-107) mmol/L Carbon Dioxide 23 (22-30) mmol/L Anion Gap 10 mmol/L BUN 16 (9-20) mg/dL Creatinine 1.00 (0.66-1.25) mg/dL Est GFR (CKD-EPI)AfAm 89 (>60 ml/min/1.73 sqM) Est GFR (CKD-EPI)NonAf 77 (>60 ml/min/1.73 sqM) Glucose 113 H (74-99) mg/dL Calcium 9.0 (8.4-10.2) mg/dL Magnesium 1.9 (1.6-2.3) mg/dL Total Bilirubin 1.3 (0.2-1.3) mg/dL AST 20 (17-59) U/L ALT 27 (21-72) U/L Alkaline Phosphatase 95 (38-126) U/L Total Creatine Kinase 65 (55-170) U/L CK-MB (CK-2) 0.6 (0.0-2.4) ng/mL CK-MB (CK-2) Rel Index 0.9 Troponin I <0.012 (0.000-0.034) ng/mL NT-Pro-B Natriuret Pep pg/mL Total Protein 6.7 (6.3-8.2) g/dL Albumin 3.9 (3.5-5.0) g/dL 05/06/18 05/06/18 Range/Units 15:50 15:50 WBC (3.8-10.6) k/uL RBC (4.30-5.90) m/uL Hgb (13.0-17.5) gm/dL Hct (39.0-53.0) % MCV (80.0-100.0) fL MCH (25.0-35.0) pg MCHC (31.0-37.0) g/dL RDW (11.5-15.5) % Plt Count (150-450) k/uL Neutrophils % % Lymphocytes % % Monocytes % % Eosinophils % % Basophils % % Neutrophils # (1.3-7.7) k/uL Lymphocytes # (1.0-4.8) k/uL Monocytes # (0-1.0) k/uL Eosinophils # (0-0.7) k/uL Basophils # (0-0.2) k/uL PT 18.3 H (9.0-12.0) sec INR 2.0 H (<1.2) APTT 42.5 H (22.0-30.0) sec Sodium (137-145) mmol/L Potassium (3.5-5.1) mmol/L Chloride (98-107) mmol/L Carbon Dioxide (22-30) mmol/L Anion Gap mmol/L BUN (9-20) mg/dL Creatinine (0.66-1.25) mg/dL Est GFR (CKD-EPI)AfAm (>60 ml/min/1.73 sqM) Est GFR (CKD-EPI)NonAf (>60 ml/min/1.73 sqM) Glucose (74-99) mg/dL Calcium (8.4-10.2) mg/dL Magnesium (1.6-2.3) mg/dL Total Bilirubin (0.2-1.3) mg/dL AST (17-59) U/L ALT (21-72) U/L Alkaline Phosphatase (38-126) U/L Total Creatine Kinase (55-170) U/L CK-MB (CK-2) (0.0-2.4) ng/mL CK-MB (CK-2) Rel Index Troponin I (0.000-0.034) ng/mL NT-Pro-B Natriuret Pep 223 pg/mL Total Protein (6.3-8.2) g/dL Albumin (3.5-5.0) g/dL - Radiology Data Radiology results: report reviewed (Chest x-ray shows persistent right middle lobe pneumonia), image reviewed Disposition Clinical Impression: COPD exacerbation, COPD with acute exacerbation, Right middle lobe pneumonia, Fever Disposition: ADMITTED IP TO THIS HOSP Condition: Fair Is patient prescribed a controlled substance at d/c from ED?: No
[2018-05-06] MEDS ORDERED: PNEUMONIA PROTOCOL UTILIZED 1 EACH MISC PO PRN (15:58)
[2018-05-06] MEDS ORDERED: cefTRIAXone IN SWFI 1,000 MG/10 ML SYRINGE IVP STA (16:01)
[2018-05-06 16:18] LABS: Basophils % (A) 0 %; Eosinophils # (A) 0.1 k/uL (0-0.7); Eosinophils % (A) 1 %; HCT 39.8 % (39.0-53.0); HGB 13.3 gm/dL (13.0-17.5); Lymphocytes # (A) 1.4 k/uL (1.0-4.8); Lymphocytes % (A) 10 %; MCH 29.8 pg (25.0-35.0); MCHC 33.4 g/dL (31.0-37.0); MCV 89.4 fL (80.0-100.0); Mean Platelet Volume 7.4; Monocytes # (A) 0.6 k/uL (0-1.0); Monocytes % (A) 4 %; Neutrophils # (A) 11.2 k/uL (1.3-7.7); Neutrophils % (A) 83 %; Platelet Count 205 k/uL (150-450); RBC 4.45 m/uL (4.30-5.90); WBC 13.5 k/uL (3.8-10.6)
[2018-05-06 16:28] LABS: Albumin 3.9 g/dL (3.5-5.0); Magnesium 1.9 mg/dL (1.6-2.3); Partial Thromboplastin Time 42.5 sec (22.0-30.0); Potassium 4.2 mmol/L (3.5-5.1); Prothrombin Time 18.3 sec (9.0-12.0); Total Bilirubin 1.3 mg/dL (0.2-1.3); Total Protein 6.7 g/dL (6.3-8.2)
[2018-05-06 16:43] LABS: Creatine Kinase 65 U/L (55-170)
[2018-05-06 16:57] LABS: Creatine Kinase MB 0.6 ng/mL (0.0-2.4); Troponin I <0.012 ng/mL (0.000-0.034)
--- NOTE | 2018-05-06 17:25 | XR ---
EXAMINATION TYPE: XR chest 1V portable DATE OF EXAM: 05/06/2018 COMPARISON: 02/26/2018 HISTORY: Short of breath TECHNIQUE: Single frontal view of the chest is obtained. FINDINGS: There is no heart failure nor confluent pneumonic infiltrate. Costophrenic angles are nickie r. Heart size is normal. There are chest leads. IMPRESSION: No active cardiopulmonary disease. No change.
[2018-05-06 17:40] VITALS: BMI 23.6
[2018-05-06] MEDS: SODIUM CHLORIDE 0.9% 1,000 ML IV SCH (17:42)
[2018-05-06] MEDS ORDERED: HYDROcodone/APAP 10-325MG 1 EACH TAB PO PRN (17:57)
[2018-05-06] MEDS: IPRATROPIUM-ALBUTEROL 3 ML NEB INHALATION SCH (20:42)
[2018-05-07] MEDS: ALPRAZolam 1 MG TAB PO SCH ×2 (04:11→20:17)
[2018-05-07] MEDS ORDERED: NON-FORMULARY DRUG (Umeclidinium Bromide [Incruse Ellipta] 1 PUFF) INHALATION SCH (08:00)
[2018-05-07] MEDS: VALSARTAN 80 MG TAB PO SCH (08:39)
[2018-05-07] MEDS: cefTRIAXone IN SWFI 1,000 MG/10 ML SYRINGE IVP SCH (08:56)
[2018-05-07] MEDS: ENOXAPARIN 40 MG/0.4 ML SYRINGE SQ SCH (08:56)
[2018-05-07] MEDS: SODIUM CHLORIDE 0.9% 1,000 ML IV SCH ×3 (08:57→20:20)
[2018-05-07] MEDS ORDERED: AZITHROMYCIN 500 MG in DEXTROSE 5% IN WATER 250 ML IVPB SCH ×2 (09:00)
[2018-05-07] MEDS: IPRATROPIUM-ALBUTEROL 3 ML NEB INHALATION SCH ×4 (09:15→19:46)
--- NOTE | 2018-05-07 09:35 | XR ---
EXAMINATION TYPE: XR chest 2V DATE OF EXAM: 05/07/2018 COMPARISON: 05/06/2018 HISTORY: Shortness of breath TECHNIQUE: Frontal and lateral views of the chest are obtained. FINDINGS: Scattered senescent parenchymal changes noted. Hyperinflation compatible with COPD. No evidence for infiltrate. No evidence for atelectasis. Heart size is stable. Mediastinal structures are stable and grossly unremarkable. No evidence for hilar prominence. Degenerative changes dorsal spine. IMPRESSION: 1. No evidence for acute pulmonary disease.
--- NOTE | 2018-05-07 10:02 | P.HPIM ---
<Josefa Ramirez A - Last Filed: 05/07/18 09:45> History of Present Illness H&P Date: 05/07/18 Chief Complaint: Shortness of breath, cough, sputum production, fever 67-year-old male who presented to the emergency room with a chief complaint of shortness of breath 2-days. He also reports a fever at home. He states he has had an increased cough over the last 2-3 days with green/yellow sputum production. The patient states he was short of breath at rest and was easily winded chest pain ambulating to his bathroom at home. The patient has a history of COPD and uses a nebulizer machine regularly at home. He states he was doubling up on his nebulizer treatments to see if it would help improve his symptoms but they did not resolve so he presented to the emergency room. He denies nausea or vomiting. Denies chest pain or pressure. Denies pain or discomfort. Denies lightheadedness or dizziness. He also has a history of hypertension, anxiety, MRSA sputum in 2017. The patient was hospitalized in 2017 for pneumonia. Chest x-ray completed in the emergency room was negative for an acute process. Repeat chest x-ray is also negative for acute process. However ammonia cannot be ruled out based upon the patient's symptoms. Laboratory data reveals white count of 13.5, hemoglobin 13.3, and platelet count 205. PT 18.3. INR 2.0. PTT 42.5. Sodium 133. Potassium 4.2. BUN 60. Creatinine 1.0. Glucose 113. Magnesium 1.9. Troponin negative 1. BNP 223. The patient was started on Rocephin and azithromycin. He was admitted to the hospital under the care of Dr. Arriaza. Review of Systems Those systems with pertinent positive or pertinent negative responses have been documented in the HPI Past Medical History Past Medical History: COPD, Eye Disorder, Hypertension Additional Past Medical History / Comment(s): Cataracts History of Any Multi-Drug Resistant Organisms: MRSA Date of last positivie culture/infection: 05/29/17 MDRO Source:: Sputum Past Surgical History: No Surgical Hx Reported Additional Past Surgical History / Comment(s): Jaw surgery; bilateral cataracts removed Past Anesthesia/Blood Transfusion Reactions: No Reported Reaction Additional Past Anesthesia/Blood Transfusion Reaction / Comment(s): no family problems Past Psychological History: Anxiety Smoking Status: Former smoker Past Alcohol Use History: None Reported Additional Past Alcohol Use History / Comment(s): Smokes 7-8 cigaretts per day Past Drug Use History: Marijuana Additional Drug Use History / Comment(s): Occasional marijuana use - Past Family History Mother Family Medical History: No Reported History Father Family Medical History: Myocardial Infarction ([place]) Additional Family Medical History / Comment(s): of heart attack Medications and Allergies Home Medications Medication Instructions Recorded Confirmed Type Valsartan [Diovan] 80 mg PO DAILY 04/27/16 05/06/18 History ALPRAZolam 1 mg PO HS 04/28/16 05/06/18 History Albuterol Inhaler [Ventolin Hfa 1 - 2 puff INHALATION RT-QID PRN 09/11/17 History Inhaler] Albuterol Nebulized [Ventolin 2.5 mg INHALATION RT-QID PRN 09/11/17 05/06/18 History Nebulized] Hydrocodone/Acetaminophen [[place] 1 tab PO QID 02/26/18 05/06/18 History 10-325] Umeclidinium [place] [Incruse 1 puff INHALATION RT-DAILY 02/26/18 05/06/18 History Ellipta] Allergies Allergy/AdvReac Type Severity Reaction Status Date / Time No Known Allergies Allergy Verified 05/06/18 15:51 Physical Exam Vitals: Vital Signs Temp Pulse Pulse Resp BP BP Pulse Ox 05/07/18 09:26 72 05/07/18 09:16 72 05/07/18 06:02 97.0 F L 73 20 126/88 94 L 05/06/18 22:39 97.0 F L 71 24 124/76 95 05/06/18 19:01 99.5 F 103 H 20 102/59 91 L 05/06/18 17:32 99.5 F 107 H 20 123/69 91 L 05/06/18 16:49 100.5 F H 103 H 18 102/59 99 05/06/18 16:25 100 05/06/18 16:18 22 05/06/18 15:55 99 05/06/18 14:42 102.1 F H 111 H 30 H 176/87 93 L Intake and Output 05/06/18 05/07/18 05/07/18 22:59 06:59 14:59 Other: # Voids 1 1 Weight 78.925 kg GENERAL: This is a 67-year-old male in no apparent distress at the time of examination. Pleasant and cooperative. HEENT: Head is atraumatic, normocephalic. Pupils are equal, round, and reactive to light. Sclerae anicteric. Conjunctivae are clear. Mucus membranes of the mouth are moist. Neck is supple. RESPIRATORY: Decreased air exchange. Inspiratory and expiratory wheezing noted throughout. No crackles auscultated. No use of accessory muscles. Patient maintaining oxygen saturation greater than 92%. No chest wall tenderness is noted on palpation or with deep breathing. CARDIOVASCULAR: Regular rate and rhythm. S1 and S2 noted. No systolic or diastolic murmur auscultated. No JVD noted. No S3 or S4 noted. GASTROINTESTINAL: No distention noted. Abdomen soft and round. Normal active bowel sounds auscultated x 4 quadrants. No pain or tenderness noted upon palpation. INTEGUMENTARY: No cyanosis. No jaundice. No rashes noted. No cellulitis noted. EXTREMITIES: 2+ peripheral pulses. No evidence of peripheral edema. No calf tenderness noted. NEUROLOGIC: Cranial nerves II-XII intact. PSYCHIATRIC: Awake, alert, and oriented X 3. Appropriate affect. Intact judgement and insight. Results CBC & Chem 7: 05/06/18 15:50 05/06/18 15:50 Labs: Abnormal Lab Results - Last 24 Hours (Table) 05/06/18 05/06/18 05/06/18 Range/Units 15:50 15:50 15:50 WBC 13.5 H (3.8-10.6) k/uL Neutrophils # 11.2 H (1.3-7.7) k/uL PT 18.3 H (9.0-12.0) sec INR 2.0 H (<1.2) APTT 42.5 H (22.0-30.0) sec Sodium 133 L (137-145) mmol/L Glucose 113 H (74-99) mg/dL Thrombosis Risk Factor Assmnt - Choose All That Apply Each Factor Represents 1 point: Abnormal pulmonary function (COPD) Each Risk Factor Represents 2 Points: Age 61-74 years Thrombosis Risk Factor Assessment Total Risk Factor Score: 3 Thrombosis Risk Factor Assessment Level: Moderate Risk Assessment and Plan Plan: ASSESSMENT: Acute exacerbation of chronic obstructive pulmonary disease, patient reports 2- 3 day history of increased shortness of breath, cough, greenish/yellow sputum production, and fever. Chest x-ray negative for an acute pulmonary process however cannot rule out underlying pneumonia based upon patient's clinical presentation Hypertension Generalized anxiety disorder Nicotine dependence, patient is a current cigarette smoker, reports 5-6 cigarettes/day Hospitalization in 2017 for right-sided pneumonia, sputum positive for MRSA Elevated INR, patient denies use of anticoagulants, etiology unknown PLAN: Continue antibiotics: Rocephin and azithromycin Begin IV steroids: 60 mg every 6 hours NovoLog sliding scale ACHS per steroid protocol Nebulizer treatments scheduled QID Obtain sputum sample for culture Patient offered nicotine patch but declines at this time Repeat INR in a.m. Home meds as appropriate Monitor labs GI prophylaxis: Protonix 40 mg PO Daily DVT prophylaxis: Lovenox 40mg daily Monitor vital signs and address as appropriate Discharge planning: Patient to return home when stable Further recommendations pending patient's course Nurse practitioner note has been reviewed by physician. Signing provider agrees with the documented findings, assessment, and plan of care. <Bernardo Arriaza Jr - Last Filed: 05/08/18 16:30> Physical Exam Osteopathic Statement: *. No significant issues noted on an osteopathic structural exam other than those noted in the History and Physical/Consult. Vitals: Vital Signs Temp Pulse Pulse Resp BP Pulse Ox 05/08/18 15:51 82 05/08/18 15:39 76 14 05/08/18 15:00 97.2 F L 88 16 135/76 93 L 05/08/18 12:56 80 05/08/18 12:42 80 05/08/18 09:27 80 05/08/18 09:15 80 05/08/18 06:04 96.9 F L 82 18 138/93 93 L 05/07/18 23:00 97.2 F L 89 18 116/65 94 L 05/07/18 20:01 66 05/07/18 19:47 64 Intake and Output 05/08/18 05/08/18 05/08/18 06:59 14:59 22:59 Other: # Voids 1 Results CBC & Chem 7: 05/08/18 07:19 05/08/18 07:19 Labs: Abnormal Lab Results - Last 24 Hours (Table) 05/07/18 05/07/18 05/08/18 Range/Units 17:29 20:37 06:56 WBC (3.8-10.6) k/uL RBC (4.30-5.90) m/uL Hgb (13.0-17.5) gm/dL Hct (39.0-53.0) % Neutrophils # (1.3-7.7) k/uL Lymphocytes # (1.0-4.8) k/uL Chloride (98-107) mmol/L BUN (9-20) mg/dL Glucose (74-99) mg/dL POC Glucose (mg/dL) 190 H 283 H 162 H (75-99) mg/dL 05/08/18 05/08/18 05/08/18 Range/Units 07:19 07:19 12:14 WBC 16.3 H (3.8-10.6) k/uL RBC 3.96 L (4.30-5.90) m/uL Hgb 11.8 L (13.0-17.5) gm/dL Hct 36.8 L (39.0-53.0) % Neutrophils # 15.3 H (1.3-7.7) k/uL Lymphocytes # 0.7 L (1.0-4.8) k/uL Chloride 110 H (98-107) mmol/L BUN 21 H (9-20) mg/dL Glucose 168 H (74-99) mg/dL POC Glucose (mg/dL) 133 H (75-99) mg/dL Microbiology - Last 24 Hours (Table) 05/07/18 19:59 Sputum Culture - Preliminary Sputum 05/06/18 15:50 Blood Culture - Preliminary Blood No Growth after 24 hours
[2018-05-07 12:35] LABS: Glucose,Whole Blood 136 mg/dL (75-99)
[2018-05-07] MEDS: INSULIN ASPART 100 UNIT/ML 1 ML 10 ML VIAL SQ SCH ×3 (13:06→21:16)
[2018-05-07] MEDS: methylPREDNISolone SOD SUCCI 125 MG/2 ML VIAL IV SCH ×3 (13:06→23:47)
[2018-05-07 17:25] LABS: Hemoglobin A1C 5.4 % (4.0-6.0)
[2018-05-07 17:41] LABS: Glucose,Whole Blood 190 mg/dL (75-99)
[2018-05-07 20:38] LABS: Glucose,Whole Blood 283 mg/dL (75-99)
[2018-05-08] MEDS: SODIUM CHLORIDE 0.9% 1,000 ML IV SCH ×2 (05:34→15:05)
[2018-05-08] MEDS: methylPREDNISolone SOD SUCCI 125 MG/2 ML VIAL IV SCH ×2 (05:40→13:02)
[2018-05-08 07:00] LABS: Glucose,Whole Blood 162 mg/dL (75-99)
[2018-05-08 08:33] LABS: INR 1.1 (<1.2); Prothrombin Time 10.8 sec (9.0-12.0)
[2018-05-08 08:38] LABS: Anion Gap 8 mmol/L; Blood Urea Nitrogen 21 mg/dL (9-20); Calcium 8.5 mg/dL (8.4-10.2); Carbon Dioxide 23 mmol/L (22-30); Chloride 110 mmol/L (98-107); Glucose 168 mg/dL (74-99); Potassium 4.8 mmol/L (3.5-5.1); Sodium 141 mmol/L (137-145)
[2018-05-08] MEDS: INSULIN ASPART 100 UNIT/ML 1 ML 10 ML VIAL SQ SCH ×4 (08:58→21:16)
[2018-05-08] MEDS: VALSARTAN 80 MG TAB PO SCH (08:59)
[2018-05-08] MEDS: ENOXAPARIN 40 MG/0.4 ML SYRINGE SQ SCH (08:59)
[2018-05-08] MEDS: cefTRIAXone IN SWFI 1,000 MG/10 ML SYRINGE IVP SCH (08:59)
[2018-05-08] MEDS: PANTOPRAZOLE 40 MG TABLET PO SCH (09:00)
[2018-05-08] MEDS: AZITHROMYCIN 500 MG TAB PO SCH (09:00)
[2018-05-08 09:02] LABS: Basophils % (A) 0 %; Eosinophils % (A) 0 %; HCT 36.8 % (39.0-53.0); HGB 11.8 gm/dL (13.0-17.5); Lymphocytes # (A) 0.7 k/uL (1.0-4.8); Lymphocytes % (A) 4 %; MCH 29.8 pg (25.0-35.0); Mean Platelet Volume 8.4; Monocytes # (A) 0.3 k/uL (0-1.0); Monocytes % (A) 2 %; Neutrophils # (A) 15.3 k/uL (1.3-7.7); Neutrophils % (A) 93 %; Platelet Count 225 k/uL (150-450); RBC 3.96 m/uL (4.30-5.90); RDW 15.4 % (11.5-15.5); WBC 16.3 k/uL (3.8-10.6)
[2018-05-08] MEDS: IPRATROPIUM-ALBUTEROL 3 ML NEB INHALATION SCH ×4 (09:14→19:33)
[2018-05-08 12:19] LABS: Glucose,Whole Blood 133 mg/dL (75-99)
--- NOTE | 2018-05-08 16:39 | P.PN ---
Subjective Progress Note Date: 05/08/18 Principal diagnosis: Exacerbation chronic COPD with possible infiltrate Patient's respiratory efforts have significantly improved patient is currently satting about 93 per 94% on room air, will start patient on oral prednisone as well as IV continue to follow anticipate discharge home tomorrow Objective - Vital Signs Vital signs: Vital Signs Temp 97.2 F L 05/08/18 15:00 Pulse 82 05/08/18 15:51 Resp 14 05/08/18 15:39 BP 135/76 05/08/18 15:00 Pulse Ox 93 L 05/08/18 15:00 Intake & Output 05/07/18 05/08/18 05/08/18 18:59 06:59 18:59 Intake Total 1050 Balance 1050 Weight 78.925 kg Intake: Intake, IV Titration 1050 Amount Azithromycin 500 mg In 250 Dextrose 5% in Water 250 ml @ 125 mls/hr IVPB DAILY S[facility] Rx#:[id number] Sodium Chloride 0.9% 1, 800 000 ml @ 100 mls/hr IV . Q10H S[facility]NA Rx#:[id number] Other: # Voids 1 - Exam General: [Patient awake, alert and oriented times 3. Patient in no acute distress.] HEENT: [PERRL. EOMI. No pharyngeal erythema or exudate.] Neck: [No adenopathy.] Cardiac: [Heart regular in rate and rhythm. No S3. No S4. No clicks, rubs. No murmur.] Lungs: Respiratory effort significantly improved patient has consolidation on the left that sounds improved Abdomen: [No mass. No organomegaly. Bowel sounds presnt and normoactive in all 4 quadrants.] Extremes: [No edema no cyanosis no claudication normal pulses] : [] Musculoskeletal: [No joint erythema, edema or tenderness.] Skin: [No rash.] Neurologic: [No lateralizing deficits. CN II - XII grossly intact.] Lymphatic: [No adenopathy.] - Labs CBC & Chem 7: 05/08/18 07:19 05/08/18 07:19 Labs: Abnormal Lab Results - Last 24 Hours (Table) 05/07/18 05/07/18 05/08/18 Range/Units 17:29 20:37 06:56 WBC (3.8-10.6) k/uL RBC (4.30-5.90) m/uL Hgb (13.0-17.5) gm/dL Hct (39.0-53.0) % Neutrophils # (1.3-7.7) k/uL Lymphocytes # (1.0-4.8) k/uL Chloride (98-107) mmol/L BUN (9-20) mg/dL Glucose (74-99) mg/dL POC Glucose (mg/dL) 190 H 283 H 162 H (75-99) mg/dL 05/08/18 05/08/18 05/08/18 Range/Units 07:19 07: 12:14 WBC 16.3 H (3.8-10.6) k/uL RBC 3.96 L (4.30-5.90) m/uL Hgb 11.8 L (13.0-17.5) gm/dL Hct 36.8 L (39.0-53.0) % Neutrophils # 15.3 H (1.3-7.7) k/uL Lymphocytes # 0.7 L (1.0-4.8) k/uL Chloride 110 H (98-107) mmol/L BUN 21 H (9-20) mg/dL Glucose 168 H (74-99) mg/dL POC Glucose (mg/dL) 133 H (75-99) mg/dL Microbiology - Last 24 Hours (Table) 05/07/18 19:59 Sputum Culture - Preliminary Sputum 05/06/18 15:50 Blood Culture - Preliminary Blood No Growth after 24 hours Assessment and Plan (1) COPD exacerbation Narrative/Plan: Respiratory efforts improved continue updrafts and continue antibiotics, will change from IV steroids to oral prednisone Anticipate discharge home tomorrow Current Visit: Yes Status: Acute Code(s): J44.1 - CHRONIC OBSTRUCTIVE PULMONARY DISEASE W (ACUTE) EXACERBATION SNOMED Code(s): 531765278774626 (2) Right middle lobe pneumonia Narrative/Plan: Will continue IV antibiotics we will change to oral tomorrow oral prednisone this evening we'll continue to follow anticipate discharge home tomorrow Current Visit: Yes Status: Acute Code(s): J18.1 - LOBAR PNEUMONIA, UNSPECIFIED ORGANISM SNOMED Code(s): 415505085
[2018-05-08 16:40] LABS: Glucose,Whole Blood 186 mg/dL (75-99)
[2018-05-08] MEDS: predniSONE 20 MG TAB PO SCH ×2 (18:16→21:38)
[2018-05-08 20:43] LABS: Glucose,Whole Blood 149 mg/dL (75-99)
[2018-05-08] MEDS: ALPRAZolam 1 MG TAB PO SCH (21:16)
[2018-05-09 07:25] LABS: Glucose,Whole Blood 143 mg/dL (75-99)
[2018-05-09 07:29] VITALS: RESP 18
[2018-05-09] MEDS: IPRATROPIUM-ALBUTEROL 3 ML NEB INHALATION SCH ×3 (07:48→16:33)
[2018-05-09] MEDS: INSULIN ASPART 100 UNIT/ML 1 ML 10 ML VIAL SQ SCH ×2 (07:58→13:35)
[2018-05-09] MEDS: cefTRIAXone IN SWFI 1,000 MG/10 ML SYRINGE IVP SCH (07:58)
[2018-05-09] MEDS: PANTOPRAZOLE 40 MG TABLET PO SCH (07:59)
[2018-05-09] MEDS: VALSARTAN 80 MG TAB PO SCH (07:59)
[2018-05-09] MEDS: ENOXAPARIN 40 MG/0.4 ML SYRINGE SQ SCH (07:59)
[2018-05-09] MEDS: predniSONE 20 MG TAB PO SCH ×2 (07:59→13:34)
[2018-05-09] MEDS: AZITHROMYCIN 500 MG TAB PO SCH (07:59)
[2018-05-09 08:16] LABS: Basophils % (A) 0 %; Eosinophils % (A) 0 %; HCT 35.1 % (39.0-53.0); HGB 11.3 gm/dL (13.0-17.5); Lymphocytes # (A) 0.7 k/uL (1.0-4.8); Lymphocytes % (A) 5 %; MCH 29.5 pg (25.0-35.0); MCHC 32.2 g/dL (31.0-37.0); MCV 91.9 fL (80.0-100.0); Mean Platelet Volume 8.1; Monocytes # (A) 0.6 k/uL (0-1.0); Monocytes % (A) 4 %; Neutrophils # (A) 12.7 k/uL (1.3-7.7); Neutrophils % (A) 90 %; Platelet Count 247 k/uL (150-450); RBC 3.82 m/uL (4.30-5.90); RDW 15.2 % (11.5-15.5); WBC 14.1 k/uL (3.8-10.6)
[2018-05-09 08:47] LABS: Calcium 8.3 mg/dL (8.4-10.2); Potassium 4.2 mmol/L (3.5-5.1)
[2018-05-09 12:54] LABS: Glucose,Whole Blood 136 mg/dL (75-99)
[2018-05-09 14:26] VITALS: BP 141/70; PULSE 84; TEMP 97.1
--- NOTE | 2018-05-09 16:49 | P.DS ---
Providers Date of admission: 05/06/18 16:01 Attending physician: Eris Culver Primary care physician: Eris Culver - Discharge Diagnosis(es) (1) COPD exacerbation General: [Patient awake, alert and oriented times 3. Patient in no acute distress.] HEENT: [PERRL. EOMI. No pharyngeal erythema or exudate.] Neck: [No adenopathy.] Cardiac: [Heart regular in rate and rhythm. No S3. No S4. No clicks, rubs. No murmur.] Lungs: [Clear to auscultation bilaterally.] Abdomen: [No mass. No organomegaly. Bowel sounds presnt and normoactive in all 4 quadrants.] Extremes: [No edema no cyanosis no claudication normal pulses] : [] Musculoskeletal: [No joint erythema, edema or tenderness.] Skin: [No rash.] Neurologic: [No lateralizing deficits. CN II - XII grossly intact.] Lymphatic: [No adenopathy.] Current Visit: Yes Status: Acute (2) Right middle lobe pneumonia We'll discharge patient home on Zithromax 500 mg 1 by mouth daily 4 days Current Visit: Yes Status: Acute Hospital Course: Patient was started on IV Rocephin and IV Zithromax as well as IV prednisone Patient Condition at Discharge: Fair Plan - Discharge Summary Discharge Rx Participant: Yes New Discharge Prescriptions: New predniSONE 20 mg PO DAILY 7 Days #7 tab Azithromycin [Zithromax] 500 mg PO DAILY #4 tab No Action Valsartan [Diovan] 80 mg PO DAILY ALPRAZolam 1 mg PO HS Albuterol Nebulized [Ventolin Nebulized] 2.5 mg INHALATION RT-QID PRN PRN Reason: Shortness Of Breath Albuterol Inhaler [Ventolin Hfa Inhaler] 1 - 2 puff INHALATION RT-QID PRN PRN Reason: Shortness Of Breath Hydrocodone/Acetaminophen [[place] 10-325] 1 tab PO QID Umeclidinium [place] [Incruse Ellipta] 1 puff INHALATION RT-DAILY Discharge Medication List Valsartan [Diovan] 80 mg PO DAILY 04/27/16 [History] ALPRAZolam 1 mg PO HS 04/28/16 [History] Albuterol Inhaler [Ventolin Hfa Inhaler] 1 - 2 puff INHALATION RT-QID PRN [History] Albuterol Nebulized [Ventolin Nebulized] 2.5 mg INHALATION RT-QID PRN 09/11/17 [ History] Hydrocodone/Acetaminophen [[place] 10-325] 1 tab PO QID 02/26/18 [History] Umeclidinium [place] [Incruse Ellipta] 1 puff INHALATION RT-DAILY 02/26/18 [ History] Azithromycin [Zithromax] 500 mg PO DAILY #4 tab 05/09/18 [Rx] predniSONE 20 mg PO DAILY 7 Days #7 tab 05/09/18 [Rx] Follow up Appointment(s)/Referral(s): Eris Culver MD [Primary Care Provider] - 1-2 days Patient Instructions/Handouts: Community Acquired Pneumonia (DC) Activity/Diet/Wound Care/Special Instructions: activity as tolerated continue regular diet incentive spirometer 10x/hr
== END 2018-05-09 17:20 | disposition home or self-care (01) | DRG 190 ==
LOC: EC 14:40 → 4MS4W 16:01
PROVIDERS: ADMIT Family Medicine; ATTEND Family Medicine
DX: J44.0 Chronic obstructive pulmonary disease with (acute) lower respiratory infection (principal); J18.9 Pneumonia, unspecified organism; F17.210 Nicotine dependence, cigarettes, uncomplicated; F41.1 Generalized anxiety disorder; I10 Essential (primary) hypertension; J44.1 Chronic obstructive pulmonary disease with (acute) exacerbation; R09.02 Hypoxemia; R79.1 Abnormal coagulation profile; Z79.899 Other long term (current) drug therapy; Z82.49 Family history of ischemic heart disease and other diseases of the circulatory system; Z79.891 Long term (current) use of opiate analgesic; Z86.14 Personal history of Methicillin resistant Staphylococcus aureus infection
CPT/HCPCS: 36415; 71045; 71046; 80048; 80053; 82550; 82553; 83036; 83735; 83880; 84484; 85025; 85610; 85730; 87040; 87070; 87077; 87186; 87205; 93005; 94640; 94644; 96361; 96365; 96366; 96375; 99285

== ENCOUNTER → 2019-08-17 | Outpatient (CLI) | payer MEDICARE, OTHER ==
--- NOTE | 2019-08-17 14:13 | XR ---
EXAMINATION TYPE: XR chest 2V DATE OF EXAM: 08/17/2019 COMPARISON: 05/07/2018 TECHNIQUE: PA and lateral views submitted. HISTORY: COPD FINDINGS: The lungs are clear and there is no pneumothorax, pleural effusion, or focal pneumonia. Hyperinflat ion suggests COPD. Arthropathy of the shoulders. Diffuse osteopenia. No overt failure. Hypertrophic a nd degenerative change of the spine. IMPRESSION: 1. No acute process. Diffuse COPD noted.
== END | disposition home or self-care (01) ==
LOC: RADXRMAIN 13:59
PROVIDERS: ATTEND Nurse Practitioner Family
DX: J44.9 Chronic obstructive pulmonary disease, unspecified (principal); J44.1 Chronic obstructive pulmonary disease with (acute) exacerbation; R50.9 Fever, unspecified
CPT/HCPCS: 71046

== ENCOUNTER → 2020-09-05 | Outpatient (CLI) | payer MEDICARE, OTHER ==
--- NOTE | 2020-09-05 10:11 | US ---
EXAMINATION TYPE: US duplex aorta DATE OF EXAM: 09/05/2020 COMPARISON: CT 05/26/17 CLINICAL HISTORY: Z13.6 encounter of screening for cardiovascular. EXAM MEASUREMENTS: Abdominal Aorta: Proximal: 3.4 x 3.3 cm Mid: 3.3 x 3.3 cm Distal: 2.6 x 2.2 cm Bifurcation: 1.4 x 1.3 cm 1.2 x 1.0 cm AAA proximal and mid aorta. Atherosclerotic changes noted. IMPRESSION: 1. The findings are compatible with a 3.4 x 3 cm proximal and mid abdominal aortic aneurysm.
== END | disposition home or self-care (01) ==
LOC: RADUSWWP 09:44
PROVIDERS: ATTEND Family Medicine
DX: Z13.6 Encounter for screening for cardiovascular disorders (principal); I71.4 Abdominal aortic aneurysm, without rupture
CPT/HCPCS: 93979

== ENCOUNTER 2021-07-13 14:18 | Emergency (ER) | payer MEDICARE, OTHER ==
[2021-07-13 14:32] VITALS: RESP 18; TEMP 98.7
[2021-07-13 15:08] LABS: Basophils # (A) 0.1 k/uL (0-0.2); Basophils % (A) 1 %; Eosinophils # (A) 0.5 k/uL (0-0.7); Eosinophils % (A) 7 %; HCT 43.6 % (39.0-53.0); HGB 14.9 gm/dL (13.0-17.5); Lymphocytes # (A) 2.3 k/uL (1.0-4.8); Lymphocytes % (A) 33 %; MCH 31.9 pg (25.0-35.0); MCHC 34.2 g/dL (31.0-37.0); MCV 93.2 fL (80.0-100.0); Mean Platelet Volume 8.5; Monocytes # (A) 0.4 k/uL (0-1.0); Monocytes % (A) 5 %; Neutrophils # (A) 3.6 k/uL (1.3-7.7); Neutrophils % (A) 51 %; Platelet Count 208 k/uL (150-450); RBC 4.68 m/uL (4.30-5.90); RDW 14.4 % (11.5-15.5); WBC 7.1 k/uL (3.8-10.6)
[2021-07-13 15:18] LABS: Albumin 4.3 g/dL (3.5-5.0); Calcium 9.3 mg/dL (8.4-10.2); Potassium 4.3 mmol/L (3.5-5.1); Total Bilirubin 0.5 mg/dL (0.2-1.3); Total Protein 7.1 g/dL (6.3-8.2)
[2021-07-13 15:25] LABS: INR 0.9 (<1.2); Partial Thromboplastin Time 25.9 sec (22.0-30.0); Prothrombin Time 9.9 sec (9.0-12.0)
--- NOTE | 2021-07-13 15:42 | XR ---
EXAMINATION TYPE: XR chest 2V DATE OF EXAM: 07/13/2021 COMPARISON: Chest x-ray 08/17/2019 HISTORY: Back pain, leg weakness TECHNIQUE: Frontal and lateral views of the chest are obtained on 3 images. FINDINGS: There is no focal air space opacity, pleural effusion, or pneumothorax seen. The cardiac silhouette size is within normal limits. There are prominent lung volumes with flattening of the hem idiaphragms suggesting underlying COPD. There is thoracic spondylosis. Bone mineralization is reduced . Aorta is dense and tortuous. The osseous structures are intact. There are overlying leads. There is a density superimposed over the anterior upper thoracic spine seen on the lateral exam which is indeterminate. IMPRESSION: There is underlying emphysema. Indeterminate abnormality on the lateral chest x-ray, alt ernate imaging could be performed for better evaluation
[2021-07-13] MEDS ORDERED: ONDANSETRON 4 MG/2 ML VIAL IVP STA (16:09)
[2021-07-13] MEDS ORDERED: HYDROmorphone 1 MG/ML 1 ML SYRINGE IVP STA (16:09)
[2021-07-13] MEDS ORDERED: KETOROLAC 15 MG/ML 1 ML VIAL IVP STA (17:43)
--- NOTE | 2021-07-13 17:51 | ED ---
General Adult HPI - General Chief complaint: Back Pain/Injury Stated complaint: Back Pain Source: patient Mode of arrival: wheelchair Limitations: physical limitation - History of Present Illness Initial comments: 70-year-old male presents emergency Department with reported severe back pain. Patient does have a long-standing history of chronic pain and is on [place]. States that he has been taking the medications twice a day without improvement in his back pain. Pain starts bilaterally in his SI joint radiates to the back of his legs. States that the pain is so severe that he has been unable to ambulate. Denies any numbness, tingling or weakness the lower extremity is. No saddle anesthesia. No bowel or bladder incontinence. Denies any trauma. No history of cancer. No fevers or IV drug use. He spoke with his pain management doctor who recommended that he come in to the emergency room for evaluation. Denies any abdominal pain. No changes in his bowel or bladder habits. Denies chest pain or shortness of breath. No numbness, [place] or weakness in his upp er extremity. No other alleviating, precipitating or modifying factors - Related Data Home Medications Medication Instructions Recorded Confirmed Valsartan [Diovan] 80 mg PO DAILY 04/27/16 07/16/21 Hydrocodone/Acetaminophen [[place] 1 tab PO QID 02/26/18 07/16/21 10-325] Albuterol Inhaler [Ventolin Hfa 2 puff INHALATION RT-QID PRN 07/13/21 07/16/21 Inhaler] Previous Rx's Medication Instructions Recorded predniSONE [Deltasone] 20 mg PO BID #10 tab 07/13/21 Orphenadrine [Norflex] 100 mg PO Q12H #14 tab 07/16/21 Allergies Allergy/AdvReac Type Severity Reaction Status Date / Time No Known Allergies Allergy Verified 07/16/21 09:26 Review of Systems ROS Statement: Those systems with pertinent positive or pertinent negative responses have been documented in the HPI. ROS Other: All systems not noted in ROS Statement are negative. Past Medical History Past Medical History: COPD, Eye Disorder, Hypertension Additional Past Medical History / Comment(s): Cataracts History of Any Multi-Drug Resistant Organisms: MRSA Date of last positivie culture/infection: 05/29/17 MDRO Source:: Sputum Past Surgical History: No Surgical Hx Reported Additional Past Surgical History / Comment(s): Jaw surgery; bilateral cataracts removed Past Anesthesia/Blood Transfusion Reactions: No Reported Reaction Additional Past Anesthesia/Blood Transfusion Reaction / Comment(s): no family problems Past Psychological History: Anxiety Smoking Status: Current every day smoker Past Alcohol Use History: None Reported Past Drug Use History: Marijuana - Past Family History Mother Family Medical History: No Reported History Father Family Medical History: Myocardial Infarction ([place]) Additional Family Medical History / Comment(s): of heart attack General Exam Limitations: physical limitation General appearance: alert, in no apparent distress Head exam: Present: atraumatic, normocephalic, normal inspection Eye exam: Present: normal appearance, PERRL, EOMI. Absent: scleral icterus, conjunctival injection, periorbital swelling ENT exam: Present: normal exam, mucous membranes moist Neck exam: Present: normal inspection. Absent: tenderness, meningismus, lymphadenopathy Respiratory exam: Present: normal lung sounds bilaterally. Absent: respiratory distress, wheezes, rales, rhonchi, stridor Cardiovascular Exam: Present: regular rate, normal rhythm, normal heart sounds. Absent: systolic murmur, diastolic murmur, rubs, gallop, clicks GI/Abdominal exam: Present: soft, normal bowel sounds. Absent: distended, tenderness, guarding, rebound, rigid Extremities exam: Present: normal inspection, full ROM, normal capillary refill. Absent: tenderness, pedal edema, joint swelling, calf tenderness Back exam: Present: tenderness (si joints bilaterally. 5/5 muscle strength bilaterally lower extremities. Intact sensation. NO saddle anesthesia) Neurological exam: Present: alert, oriented X3, CN II-XII intact Psychiatric exam: Present: normal affect, normal mood Skin exam: Present: warm, dry, intact, normal color. Absent: rash Course Vital Signs 07/13/21 07/13/21 07/13/21 14:29 15:38 18:05 Temperature 98.7 F Pulse Rate 67 55 L 58 L Respiratory 18 18 18 Rate Blood Pressure 207/105 177/93 187/87 O2 Sat by Pulse 96 99 98 Oximetry EKG Findings - EKG Comments: EKG Findings:: EKG demonstrates sinus tachycardia with a ventricular rate of 57. RI interval 184. QRS 70. QTC of 430. No acute ST segment elevations or depressions concerning for ischemic changes Medical Decision Making - Medical Decision Making On arrival patient is placed into room 5. A thorough history and physical exam was performed. Patient does have extremely elevated blood pressure this time. Reports a history of high blood pressure however states it is usually fairly well controlled. Denies missing any of his medications. Laboratory studies are obtained. Did perform imaging the patient's lumbar spine. Laboratory studies are all within normal limits. CT of the lumbar spine demonstrates no paraspinal masses identified. Aphthous chronic disease of the abdominal aorta. 2 mm nonobstructing left renal stone and curvilinear right renal calcification versus stone. Patient was given 1 mg of Dilaudid for pain control. He is reevaluated and states that it did not help the symptoms much. This and patient is given 15 mg of IV Toradol with improvement. He is able to get up and he relates the bathroom. I did discuss the diagnosis, differential and treatment options. Patient is requesting to go home at this time. He does have Fisher available. I informed him due to his radicular symptoms he may try steroids. He is given 125 mg of solumedrol on the emergency department. He will be placed on prednisone 20 mg twice daily for the next 5 days. He is instructed not to drink alcohol or use any NSAIDs with the steroids. Follow up with his doctor in 2-4 days for reevaluation. Return to the emergency room for any new or worsening symptoms. Patient agree to treatment and he was discharged home in stable condition - Lab Data Result diagrams: 07/13/21 14:57 07/13/21 14:57 Lab Results 07/13/21 07/13/21 07/13/21 Range/Units 14:57 14:57 14:57 WBC 7.1 (3.8-10.6) k/uL RBC 4.68 (4.30-5.90) m/uL Hgb 14.9 (13.0-17.5) gm/dL Hct 43.6 (39.0-53.0) % MCV 93.2 (80.0-100.0) fL MCH 31.9 (25.0-35.0) pg MCHC 34.2 (31.0-37.0) g/dL RDW 14.4 (11.5-15.5) % Plt Count 208 (150-450) k/uL MPV 8.5 Neutrophils % 51 % Lymphocytes % 33 % Monocytes % 5 % Eosinophils % 7 % Basophils % 1 % Neutrophils # 3.6 (1.3-7.7) k/uL Lymphocytes # 2.3 (1.0-4.8) k/uL Monocytes # 0.4 (0-1.0) k/uL Eosinophils # 0.5 (0-0.7) k/uL Basophils # 0.1 (0-0.2) k/uL PT 9.9 (9.0-12.0) sec INR 0.9 (<1.2) APTT 25.9 (22.0-30.0) sec Sodium 138 (137-145) mmol/L Potassium 4.3 (3.5-5.1) mmol/L Chloride 107 (98-107) mmol/L Carbon Dioxide 23 (22-30) mmol/L Anion Gap 8 mmol/L BUN 21 H (9-20) mg/dL Creatinine 1.04 (0.66-1.25) mg/dL Est GFR (CKD-EPI)AfAm 84 (>60 ml/min/1.73 sqM) Est GFR (CKD-EPI)NonAf 72 (>60 ml/min/1.73 sqM) Glucose 83 (74-99) mg/dL Calcium 9.3 (8.4-10.2) mg/dL Total Bilirubin 0.5 (0.2-1.3) mg/dL AST 26 (17-59) U/L ALT 15 (4-49) U/L Alkaline Phosphatase 87 (38-126) U/L Troponin I (0.000-0.034) ng/mL Total Protein 7.1 (6.3-8.2) g/dL Albumin 4.3 (3.5-5.0) g/dL 07/13/21 Range/Units 14:57 WBC (3.8-10.6) k/uL RBC (4.30-5.90) m/uL Hgb (13.0-17.5) gm/dL Hct (39.0-53.0) % MCV (80.0-100.0) fL MCH (25.0-35.0) pg MCHC (31.0-37.0) g/dL RDW (11.5-15.5) % Plt Count (150-450) k/uL MPV Neutrophils % % Lymphocytes % % Monocytes % % Eosinophils % % Basophils % % Neutrophils # (1.3-7.7) k/uL Lymphocytes # (1.0-4.8) k/uL Monocytes # (0-1.0) k/uL Eosinophils # (0-0.7) k/uL Basophils # (0-0.2) k/uL PT (9.0-12.0) sec INR (<1.2) APTT (22.0-30.0) sec Sodium (137-145) mmol/L Potassium (3.5-5.1) mmol/L Chloride (98-107) mmol/L Carbon Dioxide (22-30) mmol/L Anion Gap mmol/L BUN (9-20) mg/dL Creatinine (0.66-1.25) mg/dL Est GFR (CKD-EPI)AfAm (>60 ml/min/1.73 sqM) Est GFR (CKD-EPI)NonAf (>60 ml/min/1.73 sqM) Glucose (74-99) mg/dL Calcium (8.4-10.2) mg/dL Total Bilirubin (0.2-1.3) mg/dL AST (17-59) U/L ALT (4-49) U/L Alkaline Phosphatase (38-126) U/L Troponin I <0.012 (0.000-0.034) ng/mL Total Protein (6.3-8.2) g/dL Albumin (3.5-5.0) g/dL Disposition Clinical Impression: Back pain, Lumbar radiculopathy, acute, Descending thoracic aortic aneurysm Disposition: HOME SELF-CARE Condition: Stable Instructions (If sedation given, give patient instructions): Acute Low Back Pain (ED), Lumbar Radiculopathy (ED) Additional Instructions: You may take your Fisher every 6 hours. Take the steroids twice daily. Follow up with your doctor in 2-4 days. Record your blood pressure twice daily and keep a log. You must follow-up with your primary care doctor and have your blood pressures reassessed. Your doctor may need to increase your current blood pressure medication or start additional medications to improve her blood pressure readings. You have an aneurysm that must be followed yearly by your primary care doctor. Return to the emergency room for any new or worsening symptoms Prescriptions: predniSONE [Deltasone] 20 mg PO BID #10 tab Is patient prescribed a controlled substance at d/c from ED?: No Referrals: Chhaya Olmos DO [Primary Care Provider] - 1-2 days Time of Disposition: 18:55
--- NOTE | 2021-07-13 17:58 | CT ---
EXAMINATION TYPE: CT lumbar spine wo con DATE OF EXAM: 07/13/2021 5:38 PM COMPARISON: None HISTORY: back pain, no injury CT DLP: 742.2 mGycm Automated exposure control for dose reduction was used. Unenhanced CT of the lumbar spine was performed. Bone and soft tissue window settings are submitted as well as coronal and sagittal reconstructions. Sclerotic foci in the L5 vertebral body are favored to represent bone islands. Mild disc bulges at L1-L4 and L5-S1 with mild canal or neuroforaminal stenosis. This disc bulge at L4-L5 causes at least moderate canal and neuroforaminal stenosis. Multilevel facet joint arthropathy in the lumbar spine. Atherosclerotic disease of the abdominal aorta and iliac vessels. The infrarenal aorta is is border line aneurysmal measuring up to 3.9 cm. Ectatic right common iliac artery. 2 mm nonobstructing left renal stone and a curvilinear right renal calcification versus stone. IMPRESSION: 1. No paraspinal masses are identified. Lumbar segments are intact. Generative changes of the lumba r spine. 2. Atherosclerotic disease of the abdominal aorta which is borderline aneurysmal measuring up to 3.9 cm 3. 2 mm nonobstructing left renal stone and a curvilinear right renal calcification versus stone.
[2021-07-13 18:07] VITALS: BP 187/87; PULSE 58
[2021-07-13] MEDS ORDERED: methylPREDNISolone SOD SUCCI 125 MG/2 ML VIAL IV STA (18:47)
== END 2021-07-13 19:01 | disposition home or self-care (01) ==
LOC: EC 14:18
DX: M54.9 Dorsalgia, unspecified (principal); M54.16 Radiculopathy, lumbar region; I71.2 Thoracic aortic aneurysm, without rupture; J44.9 Chronic obstructive pulmonary disease, unspecified; I10 Essential (primary) hypertension; F17.200 Nicotine dependence, unspecified, uncomplicated; Z79.899 Other long term (current) drug therapy; X58.XXXA Exposure to other specified factors, initial encounter
CPT/HCPCS: 99284; 96374 ×2; 96375; 36415; 93005; 80053; 84484; 85025; 85610; 85730; 71046; 72131; J2930; J2405; J1170; J1885

== ENCOUNTER 2021-07-16 09:13 | Emergency (ER) | payer MEDICARE, OTHER ==
[2021-07-16 09:26] VITALS: BP 191/91; PULSE 95; RESP 18; TEMP 98.4
[2021-07-16] MEDS ORDERED: HYDROmorphone 1 MG/ML 1 ML SYRINGE IVP STA (10:01)
--- NOTE | 2021-07-16 10:15 | ED ---
General Adult HPI - General Chief complaint: Back Pain/Injury Stated complaint: Revisit/Back Pain Time Seen by Provider: 07/16/21 09:30 Source: patient Mode of arrival: wheelchair Limitations: no limitations - History of Present Illness Initial comments: This is a 70-year-old male with a history of chronic back pain who presents to the emergency department for a second visit within a week's time for complaint of severe back pain. 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 Patient states the pain migrates from his low back, to his hips and radiates down both legs. Patient described the pain as cramping low back discomfort and burning in his legs. Reports pain worsens with position change ambulation. States he continues to take his [place] with no improvement and has been taking the recently prescribed steroid with no relief of symptoms. Denies loss of bowel or bladder control, saddle anesthesia, or foot drop. - Related Data Home Medications Medication Instructions Recorded Confirmed Valsartan [Diovan] 80 mg PO DAILY 04/27/16 07/16/21 Hydrocodone/Acetaminophen [[place] 1 tab PO QID 02/26/18 07/16/21 10-325] Albuterol Inhaler [Ventolin Hfa 2 puff INHALATION RT-QID PRN 07/13/21 07/16/21 Inhaler] Previous Rx's Medication Instructions Recorded predniSONE [Deltasone] 20 mg PO BID #10 tab 07/13/21 Orphenadrine [Norflex] 100 mg PO Q12H #14 tab 07/16/21 Allergies Allergy/AdvReac Type Severity Reaction Status Date / Time No Known Allergies Allergy Verified 07/16/21 09:26 Review of Systems ROS Statement: Those systems with pertinent positive or pertinent negative responses have been documented in the HPI. ROS Other: All systems not noted in ROS Statement are negative. Past Medical History Past Medical History: COPD, Eye Disorder, Hypertension Additional Past Medical History / Comment(s): Cataracts, back pain History of Any Multi-Drug Resistant Organisms: MRSA Date of last positivie culture/infection: 05/29/17 MDRO Source:: Sputum Past Surgical History: No Surgical Hx Reported Additional Past Surgical History / Comment(s): Jaw surgery; bilateral cataracts removed Past Anesthesia/Blood Transfusion Reactions: No Reported Reaction Additional Past Anesthesia/Blood Transfusion Reaction / Comment(s): no family problems Past Psychological History: Anxiety Smoking Status: Current every day smoker Past Alcohol Use History: None Reported Past Drug Use History: Marijuana - Past Family History Mother Family Medical History: No Reported History Father Family Medical History: Myocardial Infarction ([place]) Additional Family Medical History / Comment(s): of heart attack General Exam Limitations: no limitations General appearance: alert, other (Appears restless and uncomfortable but is able to answer questions appropriately) Respiratory exam: Present: normal lung sounds bilaterally. Absent: respiratory distress, wheezes, rales, rhonchi, stridor Cardiovascular Exam: Present: regular rate, normal rhythm, normal heart sounds. Absent: systolic murmur, diastolic murmur, rubs, gallop, clicks GI/Abdominal exam: Present: soft, normal bowel sounds. Absent: distended, tenderness, guarding, rebound, rigid Back exam: Present: other (+ straight leg tests bilaterally) Neurological exam: Present: alert, oriented X3, CN II-XII intact Psychiatric exam: Present: normal affect Skin exam: Present: warm, dry, intact, normal color Course Vital Signs 07/16/21 09:24 Temperature 98.4 F Pulse Rate 95 Respiratory 18 Rate Blood Pressure 191/91 O2 Sat by Pulse 96 Oximetry - Reevaluation(s) Reevaluation #1: 07/16/21 10:56 Patient feeling moderately improved after receiving pain medication. Able to recline on stretcher with legs straight in front of him. He does report spasming, cramping pain in the right low back and in the right leg. Medical Decision Making - Medical Decision Making 70-year-old male with a history of chronic back pain presents with low back pain uncontrolled with home medication. Denied any loss of bowel or bladder control, saddle anesthesia, or drop. On exam, patient did appear uncomfortable and restless. Was given IV pain medicine and a muscle relaxer with improvement. Discharge discussed with patient, and though he would prefer admission, patient is agreeable to home medications and outpatient follow-up. Instructed to call first thing tomorrow morning to schedule follow-up appointment. Return parameters discussed in detail. Patient verbalizes understanding. Disposition Clinical Impression: Back pain, Sciatica Disposition: HOME SELF-CARE Condition: Stable Instructions (If sedation given, give patient instructions): Acute Low Back Pain (ED), Lower Back Exercises (ED) Additional Instructions: Take medications as discussed. Call back specialist first thing tomorrow morning to set up an outpatient appointment. Return to the emergency department with any new, worsening, or concerning symptoms. Prescriptions: Orphenadrine [Norflex] 100 mg PO Q12H #14 tab Is patient prescribed a controlled substance at d/c from ED?: No Referrals: Chhaya Olmos DO [Primary Care Provider] - 1-2 days Catarino Contreras DO [Doctor of Osteopathic Medicine] - 1-2 days Time of Disposition: 12:46
[2021-07-16] MEDS ORDERED: KETOROLAC 15 MG/ML 1 ML VIAL IVP STA (11:13)
[2021-07-16] MEDS ORDERED: ORPHENADRINE 30 MG/ML 2 ML VIAL IVP STA (11:13)
[2021-07-16] MEDS ORDERED: oxyCODONE-APAP 5-325MG 1 EACH TAB PO STA (12:45)
== END 2021-07-16 13:30 | disposition home or self-care (01) ==
LOC: EC 09:13
DX: M54.42 Lumbago with sciatica, left side (principal); M54.41 Lumbago with sciatica, right side; F17.200 Nicotine dependence, unspecified, uncomplicated; J44.9 Chronic obstructive pulmonary disease, unspecified; I10 Essential (primary) hypertension
CPT/HCPCS: 99283; 96374; 96375; J2360; J1170; J1885

== ENCOUNTER 2021-07-27 19:57 | Observation (INO) | payer MEDICARE, OTHER ==
[2021-07-27] MEDS ORDERED: HYDROmorphone 1 MG/ML 1 ML SYRINGE IVP STA (21:05)
[2021-07-27] MEDS ORDERED: KETOROLAC 15 MG/ML 1 ML VIAL IVP STA (21:05)
[2021-07-27] MEDS ORDERED: DIAZEPAM 5 MG/ML 2 ML INJ IVP STA (21:05)
[2021-07-27] MEDS ORDERED: ONDANSETRON 4 MG/2 ML VIAL IVP PRN (22:17)
[2021-07-27] MEDS ORDERED: NALOXONE 0.4 MG/ML 1 ML VIAL IV PRN (22:17)
--- NOTE | 2021-07-27 22:18 | ED ---
Back Pain HPI - General Chief Complaint: Back Pain/Injury Stated Complaint: Body Aches Time Seen by Provider: 07/27/21 20:37 Source: patient, family Limitations: no limitations - History of Present Illness Initial Comments: 70 year-old male patient presents to the emergency department for evaluation of low back pain with radiation down both legs. He describes it as a burning pain. States that symptoms have been increasing over the last week. This is his third visit to the ED for same complaints. He did have extensive work up on previous visits including labs, chest xray, and Lumbar CT. It was felt his pain was related to degenerative disc disease and herniated discs. 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 States he is having difficulty walking. States he cannot sleep due to the pain. Denies any numbness or tingling to the lower extremities. Denies saddle anesthesia or loss of bowel or bladder control. Patient denies any recent rash, cough, shortness of breath, chest pain, abdominal pain, nausea, vomiting, diarrhea, constipation, hematuria, dysuria, urinary urgency, urinary frequency, headache, visual changes, or any other complaints. - Related Data Home Medications Medication Instructions Recorded Confirmed Valsartan [Diovan] 80 mg PO DAILY 04/27/16 07/27/21 oxyCODONE-APAP 10-325MG [Percocet 1 tab PO QID PRN 07/27/21 07/27/21 10-325 mg] Allergies Allergy/AdvReac Type Severity Reaction Status Date / Time No Known Allergies Allergy Verified 07/27/21 22:38 Review of Systems ROS Statement: Those systems with pertinent positive or pertinent negative responses have been documented in the HPI. ROS Other: All systems not noted in ROS Statement are negative. Past Medical History Past Medical History: COPD, Eye Disorder, Hypertension Additional Past Medical History / Comment(s): Cataracts, back pain History of Any Multi-Drug Resistant Organisms: MRSA Date of last positivie culture/infection: 05/29/17 MDRO Source:: Sputum Past Surgical History: No Surgical Hx Reported Additional Past Surgical History / Comment(s): Jaw surgery; bilateral cataracts removed Past Anesthesia/Blood Transfusion Reactions: No Reported Reaction Additional Past Anesthesia/Blood Transfusion Reaction / Comment(s): no family problems Past Psychological History: Anxiety Smoking Status: Current every day smoker Past Alcohol Use History: None Reported Past Drug Use History: Marijuana - Past Family History Mother Family Medical History: No Reported History Father Family Medical History: Myocardial Infarction ([place]) Additional Family Medical History / Comment(s): of heart attack General Exam Limitations: no limitations General appearance: alert, in no apparent distress, other (This is a well developed, well nourished adult male patient in mild distress related to pain. Vital signs upon presentation are temperature 98.4F, pulse 103, respirations 19, blood pressure 151/89, pulse ox 94% on room air.) Eye exam: Present: normal appearance, PERRL, EOMI. Absent: scleral icterus, conjunctival injection, periorbital swelling ENT exam: Present: normal exam, normal oropharynx, mucous membranes moist Respiratory exam: Present: normal lung sounds bilaterally. Absent: respiratory distress, wheezes, rales, rhonchi, stridor Cardiovascular Exam: Present: regular rate, normal rhythm, normal heart sounds. Absent: systolic murmur, diastolic murmur, rubs, gallop, clicks GI/Abdominal exam: Present: soft, normal bowel sounds. Absent: distended, tenderness, guarding, rebound, rigid Extremities exam: Present: normal inspection, full ROM, normal capillary refill, other (Skin to his lower extremities is pink, warm, dry. Cap refill less than 3 seconds. No swelling noted in the lower extremities.). Absent: tenderness, pedal edema, joint swelling, calf tenderness Neurological exam: Present: alert, oriented X3, CN II-XII intact Psychiatric exam: Present: normal affect, normal mood Skin exam: Present: warm, dry, intact, normal color. Absent: rash Course Vital Signs 07/27/21 07/27/21 07/28/21 20:18 22:44 01:13 Temperature 98.4 F Pulse Rate 103 H 70 88 Respiratory 19 20 18 Rate Blood Pressure 151/89 137/88 169/99 O2 Sat by Pulse 94 L 95 98 Oximetry Medical Decision Making - Medical Decision Making 70-year-old male patient presented to the emergency department today for evaluation of persistent low back pain with radiation down the legs. Physical examination is unremarkable. There is no concerning symptoms for cauda equina. He has been here 2 times previously over the last week did have labs and lumbar CT performed. He'll be admitted to the hospital for intractable back pain. Pain management has been provided. Consult orthopedics. Case discussed with my attending Dr. Escalante. Disposition Clinical Impression: Intractable low back pain, Leg pain Disposition: ADMITTED IP TO THIS [facility] Condition: Serious Decision to Admit Reason: Admit from EC Decision Date: 07/27/21 Decision Time: 22:18
[2021-07-28] MEDS: HYDROmorphone 1 MG/ML 1 ML SYRINGE IVP PRN ×6 (00:04→19:34)
[2021-07-28] MEDS: KETOROLAC 15 MG/ML 1 ML VIAL IVP PRN (03:48)
[2021-07-28] MEDS: VALSARTAN 80 MG TAB PO SCH (09:36)
[2021-07-28] MEDS ORDERED: LACTATED RINGERS 1,000 ML IV ONE (11:26)
[2021-07-28] MEDS ORDERED: fentaNYL (PF) 50 MCG/ML 2 ML AMP IV ONE (11:26)
[2021-07-28 11:57] VITALS: BMI 21.7
--- NOTE | 2021-07-28 12:07 | P.CON ---
Consult Note - . Consult date: 07/28/21 Assessment/Plan:: This is a 70-year-old gentleman with history of chronic lower back pain and recent exacerbation with radiation to both legs however today he feels pain only in the right leg down to the right foot with numbness and tingling in no specifi c radicular distribution. The patient's pain increases with any movement should uses Percocet for his chronic lower back pain and he receives that from Dr. Germain. He denies any bowel or bladder dysfunction. The patient describes his pain as burning in quality and starts in the trochanter level. By physical exam he is alert oriented 3 in moderate distress due to his pain. Straight leg raising test is positive on the right side Possible mild tenderness in the lumbar paravertebral musculature Positive tenderness around the right greater trochanter Internal and external rotation of the right hip joint did not elicit hip pain Impression and plan: The patient has right lumbar radiculopathy and right greater trochanter bursitis. He may benefit from getting lumbar epidural steroid injection under fluoroscopic guidance and right greater trochanter bursa steroid injection. I thank you for the consultation
--- NOTE | 2021-07-28 12:45 | P.PCN ---
Date of Procedure: 07/28/21 Surgeon: Noris Martinez Pathology: none sent Condition: stable Disposition: PACU Description of Procedure: PREOPERATIVE DIAGNOSIS: 1-Lumbar radiculopathy 2- Lumber Degenerative Disc Diseases. POSTOPERATIVE DIAGNOSIS: 1-Lumbar radiculopathy. 2-Lumbar Degenerative Disc Diseases PROCEDURE 1. Lumbar epidural steroid injection under fluoroscopic guidance at the L4-5 level in the right paramedian approach. 2. Lumbar epidurogram. ANESTHESIA: Local only with 1% lidocaine EBL: Minimal PROCEDURE INDICATION: The patient with low back pain and radiculitis symptoms unresponsive to conservative treatment. Fluoroscopy was used to optimize visualization of the needle placement and to maximize safety. PROCEDURE DESCRIPTION / TECHNIQUE: The patient was seen and identified in the preoperative area. Risks, benefits, complications including but not limited to infections ,bleeding ,allergic reaction to the medications ,nerve damage and not complete pain relief , and alternatives were discussed with the patient. The patient agreed to proceed with the procedure and signed the consent. IV was started, and vital signs were stable. Patient was taken to the OR and time out was completed. The patient was placed in the right lateral decubitus position due to his inability to assumed the prone position.. The lumbosacral area was prepped and draped in the usual sterile fashion with ChloraPrep.Patient was closely monitored during the procedure. Conscious sedation was used during the procedure to decrease patients anxiety. Vital signs were monitered during the entire procedure. Using anterior-posterior fluoroscopy, the L4-5 interlaminar space was identified and the skin over this site was marked and then infiltrated with 1% lidocaine subcutaneously. Subsequently, a 20-gauge Tuohy epidural needle was inserted and advanced toward the epidural space using the Loss of resistance to air technique and guided by AP and lateral fluoroscopy. The correct needle position in the epidural space was verified with the injection of 1 mL of the water soluble contrast dye Omnipaque 180 contrast and observing an excellent epidurogram with the epidural spread of the dye, after negative aspiration for blood and CSF and in the absence of paresthesias. Again after negative aspiration, a 7.5 ml mixture containing 60 mg of Kenalog and 4 ml of preser vative free Normal Saline, and 2 ml of preservative free ropivacaine 0.5% solution was injected and a washout of epidurogram was seen. Needle was withdrawn intact, skin was cleansed, and bandages were applied. patient tolerated procedure well and was transferred to PACU in stable condition.A copy of the needle placement picture was saved to the fluoroscopy machine. COMPLICATIONS: None DISPOSITION / PLANS: The patient was placed in a supine position and transferred to the recovery area in a stable condition for observation. There was no evidence of lower extremity motor or sensory deficit after the procedure. Patient was discharged from the recovery room after meeting discharge criteria. Home discharge instructions were given to the patient by the staff. The patient was reexamined prior to discharge. The patient will schedule a follow up in the clinic in 2-4 weeks.
--- NOTE | 2021-07-28 12:57 | FL ---
EXAMINATION TYPE: FL guided pain mgmt statistic DATE OF EXAM: 07/28/2021 HISTORY: Fluoroscopy time 13 seconds of fluoroscopy provided. IMPRESSION: 1. Fluoroscopy time.
--- NOTE | 2021-07-28 12:59 | P.CNOR ---
History of Present Illness - [facility] Consult date: 07/28/21 Requesting physician: Dayna Lerma Consult reason: low back pain, other (Bilateral lower extremity radiculopathy) History of present illness: Patient is a very pleasant 70-year-old male who is seen and examined at the bedside for further evaluation regard to his lumbar spine. He does admit to a history of low back pain with some radiculopathy. He follows with Dr. Bolaños in the outpatient setting for pain control. He normally takes [place] for pain control. He states over the past month without injury he has had significantly worsening symptoms. He states he has pain from his lumbar spine that radiates into the bilateral lower extremities. He states one leg to be worse than the other at any time. Currently his right leg is worse than his left. He has pain that radiates into the right buttock, down the posterior thigh, into the calf, and into the foot. He has difficulty with mobility and ambulation due to his pain. 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 He has not had benefit with change in medication. He has presented to the hospital multiple times for further evaluation. CT imaging of his lumbar spine has been taken which does show some changes most significant at L4-5. He denies having a pacemaker. He states he has not had injections with pain management in the past. Patient's other medical diagnoses include COPD and hypertension. He also admits to history of kidney stone but states he does not need treatment for this. Past Medical History Past Medical History: COPD, Eye Disorder, Hypertension Additional Past Medical History / Comment(s): Cataracts, back pain History of Any Multi-Drug Resistant Organisms: MRSA Year Discovered:: 05/29/17 MDRO Source:: Sputum Past Surgical History: No Surgical Hx Reported Additional Past Surgical History / Comment(s): Jaw surgery; bilateral cataracts removed Past Anesthesia/Blood Transfusion Reactions: No Reported Reaction Additional Past Anesthesia/Blood Transfusion Reaction / Comm: no family problems Past Psychological History: Anxiety Smoking Status: Current every day smoker Past Alcohol Use History: None Reported Past Drug Use History: Marijuana - Past Family History Mother Family Medical History: No Reported History Father Family Medical History: Myocardial Infarction (ME) Additional Family Medical History / Comment(s): of heart attack Medications and Allergies Home Medications Medication Instructions Recorded Confirmed Type Valsartan [Diovan] 80 mg PO DAILY 04/27/16 07/27/21 History oxyCODONE-APAP 10-325MG [Percocet 1 tab PO QID PRN 07/27/21 07/27/21 History 10-325 mg] Allergies Allergy/AdvReac Type Severity Reaction Status Date / Time No Known Allergies Allergy Verified 07/27/21 22:38 Physical Examination Physical exam: Patient is awake, alert, and oriented 3 Vital signs stable Good chest excursion with deep inspiration and expiration Examination of lumbar spine reveals skin is intact with no abrasions, lacerations, or bruises; no erythema, purulence or signs of infection Mild generalized pain with palpation over the lumbar spine Dorsiflexion, plantarflexion, and extensor hallucis longus positive sustained bilaterally Patient does have some difficulty with lifting his legs off the bed independently No ankle clonus No lower extremity hyperreflexia bilaterally Straight leg test negative bilateral lower extremities Negative Lasegue's test bilaterally Patient has less pain with bilateral lower extremities with passive range of motion than he does with active range of motion No signs or symptoms of DVT; no calf pain No pain with internal and external rotation of the hips bilaterally Neurovascularly intact Results Pertinent studies: CT lumbar spine taken on 07/13/2021: L1-2, L2-3, L3-4, and L5-S1 disc bulging with mild canal and foraminal stenosis; L4-5 disc protrusion and facet arthropathy resulting in at least moderate central canal and neural foraminal stenosis; multilevel facet joint arthropathy; no paraspinal mass identified; 2 mm nonobstructing left renal stone and curvilinear right renal calcification versus stone Assessment and Plan Assessment: Assessment: Acute on chronic low back pain Bilateral lower extremity radiculopathy currently greater on the right than the left L4-5 spinal canal stenosis and neural foraminal stenosis Lumbar herniated nucleus pulposus Lumbar facet arthropathy COPD Hypertension History of renal stone (1) Radiculopathy with lower extremity symptoms Current Visit: Yes Status: Acute Code(s): M54.10 - RADICULOPATHY, SITE UNSPECIFIED SNOMED Code(s): 70049843 (2) Lumbar back pain with radiculopathy affecting right lower extremity Current Visit: Yes Status: Acute Code(s): M54.16 - RADICULOPATHY, LUMBAR REGION SNOMED Code(s): 022981207 (3) Lumbar disc herniation Current Visit: Yes Status: Acute Code(s): M51.26 - OTHER INTERVERTEBRAL DISC DISPLACEMENT, LUMBAR REGION SNOMED Code(s): 115587622 (4) Lumbar facet arthropathy Current Visit: Yes Status: Acute Code(s): M47.816 - SPONDYLOSIS W/O MYELOPATHY OR RADICULOPATHY, LUMBAR REGION SNOMED Code(s): 176449928 (5) Lumbar stenosis Current Visit: Yes Status: Acute Code(s): M48.061 - SPINAL STENOSIS, LUMBAR REGION WITHOUT NEUROGENIC ANNA SNOMED Code(s): 27854705 (6) COPD (chronic obstructive pulmonary disease) Current Visit: Yes Status: Acute Code(s): J44.9 - CHRONIC OBSTRUCTIVE PULMONARY DISEASE, UNSPECIFIED SNOMED Code(s): 90576975 (7) Hypertension Current Visit: Yes Status: Acute Code(s): I10 - ESSENTIAL (PRIMARY) HYPERTENSION SNOMED Code(s): 66269081 (8) Intractable low back pain Current Visit: Yes Status: Acute Code(s): M54.59 - SNOMED Code(s): 60726085311601048 Plan: Plan: 1. Patient is had an exacerbation of his chronic low back pain with significant bilateral lower extremity radiculopathy significantly over the past month and severe over the past 2 weeks. He follows with pain management in the outpatient setting. He has not had benefit with [place]. Medications have been changed to Percocet. He was also prescribed steroid medication. He has not had any significant control of his symptoms with these medications. CT imaging does show evidence of canal stenosis and foraminal stenosis at L4-5. He has difficulty with his regular activities of daily living given his symptoms. He has presented to the emergency department on multiple occasions for evaluation and treatment of his symptoms. Given his ongoing worsening symptoms, we'll plan to order an MRI of the lumbar spine for further evaluation. We will plan to follow the patient following his lumbar MRI to discuss the MRI results and further treatment options. We will also plan for consultation with pain management for further evaluation and to discuss possible treatment options. 2. Patient currently waiting for consultation with pain management 3. Patient will continue be seen examined by medicine for his other medical diagnoses Time with Patient: Greater than 30 (Including obtaining history, physical examination, reviewing of imaging, and dictation.)
--- NOTE | 2021-07-28 20:22 | HP ---
HISTORY AND PHYSICAL CHIEF COMPLAINTS: Back pain which is radiating to the left leg and gait dysfunction. HISTORY OF PRESENT ILLNESS: This 70-year-old gentleman with a past medical history of multiple medical problems, including COPD, history of hypertension, history of cataract, history of MRSA, being followed by Dr. Chhaya Olmos in the outpatient setting, complained of severe back pain. Pain was radiating to both legs, more on the right than the left, and radiation is mostly along the lateral aspect. Movement is also precipitating the pain. The patient has multiple evaluations. Orthopedic Surgery saw the patient. Pain Management is also planning CT-guided injections at this time. The CT changes showed L4-5 changes as well. L4-5 spinal canal stenosis and neural foraminal stenosis are also suspected by Orthopedic Surgery. There is no history of any fever, rigors or chills at this time. PAST MEDICAL HISTORY: History of COPD, hypertension, cataracts, MRSA. MEDICATIONS: Home medications are hydrocodone, Diovan. ALLERGIES: NONE. FAMILY HISTORY: History of myocardial infarction. SOCIAL HISTORY: History of THC. Smoking. REVIEW OF SYSTEMS: ENT: No diminished hearing. No diminished vision. CARDIOVASCULAR SYSTEM: No angina, palpitations. RESPIRATORY SYSTEM: As mentioned earlier. GI: As mentioned earlier. : No dysuria. NERVOUS SYSTEM: No numbness, weakness. ALLERGY/IMMUNOLOGY: No asthma or hay fever. MUSCULOSKELETAL: As mentioned earlier. HEMATOLOGY/ONCOLOGY: No history of anemia. ENDOCRINE: No history of diabetes or hypothyroidism. CONSTITUTIONAL: As mentioned earlier. DERMATOLOGY: Negative. RHEUMATOLOGY: Negative. PSYCHIATRY: As mentioned earlier. PHYSICAL EXAMINATION: Patient alert and oriented x3. Pulse 75, blood pressure 173/86, respiration 20, temperature 97.2, pulse ox 92% on room air. HEENT: Conjunctivae normal. NECK: No jugular venous distention. CARDIOVASCULAR: S1, S2 muffled. RESPIRATION: Breath sounds diminished at the bases. No rhonchi. No crackles. ABDOMEN: Soft, nontender. LEGS: Movement of the right leg is painful. Straight-leg raising is also painful. SKIN: No ulcer, rash, bleeding. JOINTS: No active deforming arthropathy. LYMPHATICS: No lymph node palpable in neck, axillae or groin. NERVOUS SYSTEM: Higher functions as mentioned earlier. Moves all 4 limbs. No focal motor or sensory deficit. LABS: COVID-19 is negative. ASSESSMENT: 1. Severe back pain secondary from L4-5 spinal canal stenosis as well as neural foraminal stenosis. 2. Gait dysfunction. 3. Bilateral radiculopathy. 4. Status post pain injection. 5. Chronic obstructive pulmonary disease. 6. Hypertension. 7. History of cataracts. 8. History of MRSA. 9. History of anxiety. 10.History of nicotine dependence. RECOMMENDATIONS AND DISCUSSION: I recommend to continue current medications, continue with symptomatic treatment. Orthopedic Surgery is planning continued conservative line of management. Pain Management is planning epidural steroid injection under fluoroscopic guidance and lumbar epidurogram. The prognosis is guarded because of the multiple complex medical issues, and further recommendations to follow. MMODL / IJN: [id number] /
[2021-07-29] MEDS: KETOROLAC 15 MG/ML 1 ML VIAL IVP PRN ×2 (00:13→20:12)
[2021-07-29] MEDS: ALPRAZolam 0.25 MG TAB PO PRN ×2 (00:13→20:12)
[2021-07-29 07:40] LABS: Basophils % (A) 0 %; Eosinophils % (A) 0 %; HCT 43.4 % (39.0-53.0); HGB 14.3 gm/dL (13.0-17.5); Lymphocytes % (A) 10 %; MCH 31.4 pg (25.0-35.0); MCV 95.3 fL (80.0-100.0); Mean Platelet Volume 8.3; Monocytes # (A) 0.4 k/uL (0-1.0); Monocytes % (A) 5 %; Neutrophils # (A) 8.1 k/uL (1.3-7.7); Neutrophils % (A) 83 %; Platelet Count 290 k/uL (150-450); RBC 4.56 m/uL (4.30-5.90); RDW 13.9 % (11.5-15.5); WBC 9.7 k/uL (3.8-10.6)
[2021-07-29 07:58] LABS: ALT 27 U/L (4-49); AST 24 U/L (17-59); African American GFR (CKD) 82 (>60 ml/min/1.73 sqM); Albumin 3.4 g/dL (3.5-5.0); Albumin/Globulin Ratio 1.1; Alkaline Phosphatase 85 U/L (38-126); Anion Gap 8 mmol/L; Blood Urea Nitrogen 32 mg/dL (9-20); Calcium 9.2 mg/dL (8.4-10.2); Carbon Dioxide 28 mmol/L (22-30); Chloride 100 mmol/L (98-107); Glucose 101 mg/dL (74-99); Non-African American GFR(CKD) 71 (>60 ml/min/1.73 sqM); Potassium 5.2 mmol/L (3.5-5.1); Sodium 136 mmol/L (137-145); Total Bilirubin 0.7 mg/dL (0.2-1.3); Total Protein 6.4 g/dL (6.3-8.2)
--- NOTE | 2021-07-29 08:27 | P.PN ---
Progress Note - Text Progress Note Date: 07/29/21 The patient is seen and examined at bedside. He says that he is feeling a little bit better today after his injection. He still has some troubles in his bilateral calves more on the right and left. He has been ambulatory to the bathroom and into the halls. He denies any new weakness in his lower extremities or new changes in bowel bladder function. He is voiding freely. On exam he's afebrile stable vital signs His lower extremities have sustained dorsal to plantar flexion and EHL. Flexion and extension with 5 out of 5 strength. No pain with internal extrication of his hips. Thighs and calves are soft nontender Assessment and plan Acute exacerbation of bilateral lower extremity radiculopathy and low back spondylosis with some improvement with conservative treatment and interventional pain management At this point the patient is making some progress and he is interested in trying to go home today and I think that is okay from a orthopedic spine surgery standpoint. I do not have acute plans for surgical intervention for him but he may be a candidate for surgery if his symptoms do not continue to improve or if he has worsening. He has had some benefit with interventional pain management and he should follow-up with continued interventional pain management outpatient. We can follow-up with him in a few weeks for recheck evaluation. I discussed this with him and he is agreeable.
[2021-07-29] MEDS: VALSARTAN 80 MG TAB PO SCH (09:10)
[2021-07-29] MEDS: DOCUSATE 100 MG CAP PO SCH ×2 (13:06→20:12)
--- NOTE | 2021-07-29 14:16 | P.PN ---
Subjective Progress Note Date: 07/29/21 History of present illness This is a 70-year-old male past medical history of COPD, hypertension, history of cataract, history of MRSA, being followed by Dr. Shaver she'll need outpatient setting, complained of severe back pain patient states pain is radiating to both legs more so on the right than the left and radiation is mostly along the lateral aspect, but is also precipitating the pain, patient has multiple evaluations including orthopedics with them in the past. Pain management is also planning a CT-guided injection at this time, CT changes show L4-L5 changes as well as L4-L5 spinal canal stenosis and neural foraminal stenosis or also suspected. Past medical history: History of COPD, hypertension, cataract, MRSA Home medications Hydrocodone Family history: Myocardial infarction . 07/29/2021 REVIEW OF SYSTEMS: GI: No nauscea, vomiting or diarrhea. : No dysuria or retention. NERVOUS SYSTEM: No numbness or weakness. ALLERGY/IMMUNOLOGY: No asthma or hay fever. MUSCULOSKELETAL: Low back pain, right leg stiffness and pain HEMATOLOGY/ONCOLOGY: No history of anemia. ENDOCRINE: No history of diabetes or hypothyroidism. CONSTITUTIONAL: As mentioned earlier. HEENT: Head is atraumatic, normocephalic. Pupils equal, round. Sclerae is anicteric. NECK: Supple. No JVD. No lymphadenopathy. No thyromegaly. LUNGS: Clear to auscultation. No wheezes or rhonchi. HEART: Regular rate and rhythm. No murmur. ABDOMEN: Soft. Bowel sounds are present. No masses. EXTREMITIES: No pedal edema, movement of right leg is painful, straight leg raise is painful. NEUROLOGICAL: Patient is awake, alert and oriented x3. Cranial nerves 2 through 12 are grossly intact. Severe back pain secondary to L4-5 spinal canal stenosis as well as neural foraminal stenosis Gait dysfunction Bilateral radiculopathy Status post injection COPD without exacerbation Hypertension History of cataract History of MRSA History of anxiety History of nicotine dependence Continue on current medication regimen, Toradol and Dilaudid as needed as needed for pain, orthopedics is following, we'll follow up with MRI results. Pain management is planning for an epidural steroid injection under fluoroscopic guidance. Ativan as needed for anxiety. Continue on bowel regimen. Continue appropriate home medications. Encourage incentive spirometer. Prognosis is guarded. We will continue to follow. Objective - Vital Signs Vital signs: Vital Signs Temp 97.9 F 07/29/21 12:08 Pulse 108 H 07/29/21 12:08 Resp 19 07/29/21 12:08 BP 168/82 07/29/21 12:08 Pulse Ox 92 L 07/29/21 12:08 Intake & Output 07/28/21 07/29/21 07/29/21 18:59 06:59 18:59 Intake Total 100 Balance 100 Weight 72.575 kg Intake: IV 100 Other: Voiding Method Toilet Toilet Toilet # Voids 2 - Labs CBC & Chem 7: 07/29/21 07:07 07/29/21 07:07 Labs: Abnormal Lab Results - Last 24 Hours (Table) 07/29/21 07/29/21 Range/Units 07:07 07:07 Neutrophils # 8.1 H (1.3-7.7) k/uL Sodium 136 L (137-145) mmol/L Potassium 5.2 H (3.5-5.1) mmol/L BUN 32 H (9-20) mg/dL Glucose 101 H (74-99) mg/dL Albumin 3.4 L (3.5-5.0) g/dL
[2021-07-29] MEDS: HYDROmorphone 1 MG/ML 1 ML SYRINGE IVP PRN ×2 (19:14→22:36)
[2021-07-30] MEDS: HYDROmorphone 1 MG/ML 1 ML SYRINGE IVP PRN ×2 (01:51→08:06)
[2021-07-30] MEDS: KETOROLAC 15 MG/ML 1 ML VIAL IVP PRN (05:06)
[2021-07-30] MEDS: DOCUSATE 100 MG CAP PO SCH (07:59)
[2021-07-30] MEDS: VALSARTAN 80 MG TAB PO SCH (07:59)
--- NOTE | 2021-07-30 09:38 | MR ---
EXAMINATION TYPE: MR lumbar spine wo con DATE OF EXAM: 07/29/2021 COMPARISON: MRI dated 12/04/2016 HISTORY: Intractable low back pain and bilateral LE radic and weakness TECHNIQUE: Multiplanar, multisequence images of the lumbar spine were acquired without IV contrast. L1-L2: Normal disc appearance without desiccation. No herniation, protrusion or disc bulging. No ca nal stenosis is present. Foramina are patent bilaterally. L2-L3: Mild foraminal encroachment due to circumferential endplate disc complex, no significant spina l stenosis. Posterior disc bulge causes minimal anterolateral mass effect on the thecal sac somewhat eccentric towards the left possibly due to patient's spinal curvature. L3-L4: There is facet arthropathy change present causing some posterior lateral mass effect on the th ecal sac. No significant spinal stenosis. Circumferential extension endplate disc complex extends to cause minimal inferior foraminal encroachment. L4-L5: The posterior disc herniation has increased in size, there is severe spinal stenosis, mass eff ect on the thecal sac, axial image #8, sagittal image #12 and 11, appearance is that of possible subl igamentous disc herniation. There is facet arthropathy change. Circumferential extension of disc mate rial does encroach on the foramina somewhat greater than on prior exam. L5-S1: Normal disc appearance without desiccation. No herniation, protrusion or disc bulging. No ca nal stenosis is present. Foramina are patent bilaterally. Lumbar segments are intact. No paraspinal masses are identified. Conus medullaris has a normal appe arance. There is a spinal curvature present. Abdominal aorta is ectatic at 3.5 cm in the infrarenal l ocation. Loss of disc height signal is greatest at L4-5 but present at intervertebral levels, there i s multilevel spondylosis with endplate discogenic marrow signal change. IMPRESSION: There has been progression of patient's disc herniation, severe spinal stenosis at L4-5. Additional f indings above. A Red level critical message alert has been initiated for Perry Demetri via the [employer] [facility] on 07/30/2021 9:33 AM. This message alert has been sent to Perry Mosquera via the pr eferences provided by the clinician for the receipt of Radiology Critical Findings. Message ID [id number].
--- NOTE | 2021-07-30 11:58 | P.PN ---
Progress Note - Text Progress Note Date: 07/30/21 The patient is seen and examined again today at bedside. He continues to have some pain particularly at his right calf. He has some weakness in his right calf as well. He has difficulty with his mobilization but he is able get up and around. He had a new MRI yesterday which showed a very large disc herniation at L4 5 with severe central and bilateral foraminal stenosis. On exam he is unable walk on his toes on the right reasonable of his heels bilaterally. He is able walk was toes of his left. Assessment and plan Bilateral lower extremity radiculopathy worse on the right than left Right lower extremity weakness Massive disc herniation L4 5 with severe stenosis The patient has had a new development of lumbar spine with a very large disc herniation causing severe stenosis. He has some weakness of his right lower extremity and his injection may have helped a little bit on the left but is not helping much on the right. He is having significant difficulty and we discussed about different treatment options. We discussed possibly surgical intervention and he is interested in proceeding with surgery. His the surgical option I think would be to pursue a decompression with stabilization at L4 5. This would offer the best chance of opening up the space and stabilizing level without further collapse. We discussed the risk of occasions alternatives and benefits at length. He is having weakness but he is hoping to go home today to return this week for revisit and scheduling of surgery. He would like to have a day at home to discuss this with his family before pursuing surgical intervention this week and I think that is reasonable for him. I think that we can plan for surgery on Saturday of this week. I'll plan to see him on Saturday for recheck evaluation and appropriate planning for decompression and fusion at L4-L5 for August 02. I discussed this with him at length and he agrees. I discussed this with her primary service and they are agreeable as well.
[2021-07-30 12:07] VITALS: BP 195/77; PULSE 71; RESP 17; TEMP 97.9
[2021-07-30] MEDS ORDERED: HYDROcodone/APAP 10-325MG 1 EACH TAB PO ONE (12:41)
--- NOTE | 2021-07-30 13:26 | P.DS ---
Providers Date of admission: 07/27/21 21:45 History of present illness This is a 70-year-old male past medical history of COPD, hypertension, history of cataract, history of MRSA, being followed by Dr. Shaver she'll need outpatient setting, complained of severe back pain patient states pain is radiating to both legs more so on the right than the left and radiation is mostly along the lateral aspect, but is also precipitating the pain, patient has multiple evaluations including orthopedics with them in the past. Pain management is also planning a CT-guided injection at this time, CT changes show L4-L5 changes as well as L4-L5 spinal canal stenosis and neural foraminal stenosis or also suspected. Past medical history: History of COPD, hypertension, cataract, MRSA Home medications Hydrocodone Family history: Myocardial infarction . 07/29/2021 Patient had MRI which showed bleeding disc at L4-L5 with central neural foraminal stenosis, patient was evaluated by orthopedic spine surgery patient is been cleared for discharge with plan for follow-up for possible discectomy in the outpatient setting. He'll be continued on pain management. Vital signs stable. REVIEW OF SYSTEMS: GI: No nauscea, vomiting or diarrhea. : No dysuria or retention. NERVOUS SYSTEM: No numbness or weakness. ALLERGY/IMMUNOLOGY: No asthma or hay fever. MUSCULOSKELETAL: Low back pain, right leg stiffness and pain HEMATOLOGY/ONCOLOGY: No history of anemia. ENDOCRINE: No history of diabetes or hypothyroidism. CONSTITUTIONAL: As mentioned earlier. HEENT: Head is atraumatic, normocephalic. Pupils equal, round. Sclerae is anicteric. NECK: Supple. No JVD. No lymphadenopathy. No thyromegaly. LUNGS: Clear to auscultation. No wheezes or rhonchi. HEART: Regular rate and rhythm. No murmur. ABDOMEN: Soft. Bowel sounds are present. No masses. EXTREMITIES: No pedal edema, movement of right leg is painful, straight leg raise is painful. NEUROLOGICAL: Patient is awake, alert and oriented x3. Cranial nerves 2 through 12 are grossly intact. Severe back pain secondary to L4-5 spinal canal stenosis as well as neural foraminal stenosis Gait dysfunction Bilateral radiculopathy Status post injection COPD without exacerbation Hypertension History of cataract History of MRSA History of anxiety History of nicotine dependence MRI showed bulging disc at L4-L5 with neuroforaminal stenosis, orthopedic spine surgery evaluated, patient has been cleared for discharge with plan for follow- up for possible surgical intervention discectomy in the outpatient setting with Dr. Ball. Continue on pain medication as needed, continue on appropriate home medication. Patient will be discharged home, follow-up with orthopedic spine surgery and PCP in the outpatient setting. Attending physician: Allie Galeas Consults: 07/27/21 22:17 Consult Physician Routine Consulting Provider: Alcon Martinez Consult Reason/Comments: Intractable back pain Do you want consulting provider notified?: Yes Primary care physician: Chhaya Olmos Patient Condition at Discharge: Serious Plan - Discharge Summary New Discharge Prescriptions: No Action Valsartan [Diovan] 80 mg PO DAILY oxyCODONE-APAP 10-325MG [Percocet 10-325 mg] 1 tab PO QID PRN PRN Reason: Pain Discharge Medication List Valsartan [Diovan] 80 mg PO DAILY 04/27/16 [History] oxyCODONE-APAP 10-325MG [Percocet 10-325 mg] 1 tab PO QID PRN 07/27/21 [History] Follow up Appointment(s)/Referral(s): Yancy Ball DO [Doctor of Osteopathic Medicine] - 08/01/21 Chhaya Olmos DO [Primary Care Provider] - 1-2 days Patient Instructions/Handouts: Chronic Back Pain (DC) Activity/Diet/Wound Care/Special Instructions: May ambulate as tolerated. Avoid heavy or rigorous activity. No repetitive bending twisting or lifting. No overhead work. Diet as tolerated Activity Limited until Seen by Dr. See Dr. Ball in the office on Saturday and OR on Saturday Discharge/Stand Alone Forms: Anes Pain/Wismer Instructions Discharge Disposition: HOME SELF-CARE
== END 2021-07-30 13:11 | disposition home or self-care (01) ==
LOC: EC 19:57 → 5NMEDONC 21:45
PROVIDERS: ADMIT Hospitalist; ATTEND Hospitalist
DX: M51.16 Intervertebral disc disorders with radiculopathy, lumbar region (principal); M51.06 Intervertebral disc disorders with myelopathy, lumbar region; M47.26 Other spondylosis with radiculopathy, lumbar region; M47.16 Other spondylosis with myelopathy, lumbar region; M48.061 Spinal stenosis, lumbar region without neurogenic claudication; M70.61 Trochanteric bursitis, right hip; Z20.822 Contact with and (suspected) exposure to COVID-19; I10 Essential (primary) hypertension; J44.9 Chronic obstructive pulmonary disease, unspecified; R26.2 Difficulty in walking, not elsewhere classified; F41.9 Anxiety disorder, unspecified; F17.200 Nicotine dependence, unspecified, uncomplicated; Z79.899 Other long term (current) drug therapy; Z98.41 Cataract extraction status, right eye; Z96.1 Presence of intraocular lens; Z98.42 Cataract extraction status, left eye; Z87.442 Personal history of urinary calculi; Z86.14 Personal history of Methicillin resistant Staphylococcus aureus infection; Z82.49 Family history of ischemic heart disease and other diseases of the circulatory system
CPT/HCPCS: 96376 ×2; 96374; 96375; 99284; 80053; 85025; 87635; 72148; 62323; G0378 ×4; J3360; J3010; J1170 ×4; J1885 ×4

== ENCOUNTER → 2021-08-01 | Outpatient (CLI) | payer MEDICARE, OTHER ==
--- NOTE | 2021-08-01 10:42 | XR ---
EXAMINATION TYPE: XR chest 2V DATE OF EXAM: 08/01/2021 COMPARISON: Chest x-ray July 13, 2021 HISTORY: Presurgical study. TECHNIQUE: Frontal and lateral views of the chest are obtained. FINDINGS: There is background chronic emphysematous change without suspicious new focal air space op acity, pleural effusion, or pneumothorax seen. The cardiac silhouette size is within normal limits. The osseous structures are intact. IMPRESSION: Chronic emphysematous change without acute pulmonary process.
[2021-08-01 11:21] LABS: Appearance,Urine Clear (Clear); Basophils % (A) 0 %; Bilirubin,Urine Negative (Negative); Blood,Urine Negative (Negative); Color,Urine Yellow; Eosinophils # (A) 0.1 k/uL (0-0.7); Eosinophils % (A) 1 %; Glucose,Urine (UA) Negative (Negative); HCT 43.5 % (39.0-53.0); HGB 14.5 gm/dL (13.0-17.5); Ketones,Urine Negative (Negative); Leukocyte Esterase,Urine Trace (Negative); Lymphocytes # (A) 1.5 k/uL (1.0-4.8); Lymphocytes % (A) 14 %; MCH 31.8 pg (25.0-35.0); MCHC 33.3 g/dL (31.0-37.0); MCV 95.6 fL (80.0-100.0); Monocytes # (A) 0.5 k/uL (0-1.0); Monocytes % (A) 5 %; Mucus,Urine Rare /hpf; Neutrophils # (A) 7.8 k/uL (1.3-7.7); Neutrophils % (A) 77 %; Nitrite,Urine Negative (Negative); PH, Urine 5.5 (5.0-8.0); Platelet Count 338 k/uL (150-450); Protein,Urine 1+ (Negative); RBC 4.55 m/uL (4.30-5.90); RBC,Urine <1 /hpf (0-5); RDW 13.9 % (11.5-15.5); Specific Gravity,Urine 1.028 (1.001-1.035); Squamous Epithelial Cell,Urine <1 /hpf (0-4); Urobilinogen,Urine <2.0 mg/dL (<2.0); WBC 10.1 k/uL (3.8-10.6); WBC,Urine 4 /hpf (0-5)
[2021-08-01 11:39] LABS: INR 0.9 (<1.2); Partial Thromboplastin Time 22.9 sec (22.0-30.0); Prothrombin Time 10.1 sec (9.0-12.0)
[2021-08-01 11:54] LABS: Calcium 9.7 mg/dL (8.4-10.2); Potassium 4.6 mmol/L (3.5-5.1)
== END | disposition home or self-care (01) ==
LOC: LABPAT 09:04
PROVIDERS: ATTEND Orthopaedic Surgery Orthopaedic Surgery of the Spine
DX: Z01.818 Encounter for other preprocedural examination (principal); J43.9 Emphysema, unspecified; Z79.01 Long term (current) use of anticoagulants
CPT/HCPCS: 36415; 71046; 80048; 81001; 85025; 85610; 85730; 86850; 86900; 86901; 87070

== ENCOUNTER 2021-08-02 08:41 | Observation (INO) | payer MEDICARE, OTHER ==
[2021-08-01 09:36] VITALS: BMI 21.7
--- NOTE | 2021-08-02 07:36 | P.HPOR ---
History of Present Illness H&P Date: 08/02/21 Chief Complaint: Low back pain with lower extremity weakness The patient is 70-year-old male who has been having severe pain in his lower back and his lower extremities bilaterally and weakness in his lower extremities. He has some history of some chronic pain in his lower back this been having severe incapacitating pain at his lower extremities as well. He denies any changes in his bowel bladder function. Denies any loss of control of bowel bladder. He says he has been having severe worsening over the past several months which was excruciating last week where he developed weakness as well, and it was so bad that he presented to the hospital. He was not able to a mbulate her mobilize. He was evaluated and found have disc herniation at L4 5 and underwent aggressive conservative treatment including interventional pain management. He says it made some benefit in his lower extremity for short period time. He says he still having severe columns and some weakness in his lower extremities. She denies any recent chills or fevers. Denies chest pain shortness of breath. He denies a specific trauma Review of Systems As stated per HPI. He denies any changes in the upper extremity. Denies any neck pain. Denies any headaches or visual change Past Medical History Past Medical History: COPD, Hypertension Additional Past Medical History / Comment(s): Back pain. History of Any Multi-Drug Resistant Organisms: MRSA Date of last positivie culture/infection: 05/29/17 MDRO Source:: Sputum Past Surgical History: No Surgical Hx Reported Additional Past Surgical History / Comment(s): Jaw surgery, bilateral cataracts removed. Past Anesthesia/Blood Transfusion Reactions: No Reported Reaction Additional Past Anesthesia/Blood Transfusion Reaction / Comment(s): no family problems Past Psychological History: Anxiety Smoking Status: Current every day smoker Past Alcohol Use History: None Reported Additional Past Alcohol Use History / Comment(s): Smokes 7-8 cigarettes per day has been smoking for 40+ yrs. Past Drug Use History: Marijuana Additional Drug Use History / Comment(s): Occasional Marijuana use. Aware no use 24 hrs prior to procedure. - Past Family History Mother Family Medical History: No Reported History Father Family Medical History: Myocardial Infarction ([place]) Additional Family Medical History / Comment(s): of heart attack. Medications and Allergies Home Medications Medication Instructions Recorded Confirmed Type Valsartan [Diovan] 80 mg PO QAM 04/27/16 08/01/21 History oxyCODONE-APAP 10-325MG [Percocet 1 tab PO QID PRN 07/27/21 08/01/21 History 10-325 mg] Allergies Allergy/AdvReac Type Severity Reaction Status Date / Time No Known Allergies Allergy Verified 08/01/21 09:23 Physical Examination Osteopathic Statement: *. No significant issues noted on an osteopathic structural exam other than those noted in the History and Physical/Consult. - L Spine: dermatomal strength & reflexes bilateral Strength: knee extension: 4/5 (His right lower extremity he has weakness with dorsiflexion and knee extension. There is some mild decreased strength of his left lower extremity with dorsal flexion as well. There is no pain with internal/external rotation of his hips. He has 5 out of 5 plantar flexion on the left, 4/5 on the ri) Strength: ankle dorsiflexion: 4/5 (Dorsiflexion is intact but weak bilaterally worse on the right and left. Sensory is intact throughout. Capillary refill less 2 seconds) Results - Diagnostic results Lumbar MRI with contrast: report reviewed, image reviewed (New MRI of his lumbar spine done here the hospital shows a massive disc herniation L4 5 with severe central and bilateral foraminal stenosis. There is disc degeneration L4 5 and loss of disc height at L4 5) Assessment and Plan Assessment: Massive disc herniation L4 5 with low back pain and lower extremity radiculopathy with weakness Incapacitating low back pain Degenerative disc disease Plan: Massive disc herniation L4 5 with low back pain and lower extremity radiculopathy with weakness Incapacitating low back pain Degenerative disc disease The patient has a massive disc herniation L4 5 with severe central and bilateral foraminal stenosis. He is breathing radiculopathy as well as weakness in his lower extremities. With the change that he has a think that he is a good chance for improvement with surgical intervention. He did not have significant benefit with interventional pain management and medications are not adequately treating his pain. We discussed the possibility of surgical intervention. With the amount of stenosis that is incorporated and the instability from the massive disc herniation I think that his best choice of surgery would be to pursue decompression with stabilization with fusion at L4 5. I discussed the risk of occasions alternatives benefits at length including but not limited to the risk of bleeding risk of infection was need for further surgery risk of decreased loss of motion loss of function malunion nonunion hardware failure nerve damage paralysis heart attack blindness as well as the fact that surgery may not alleviate his symptoms was explained. The patient elects to proceed with surgical intervention we'll plan to proceed with minimally invasive decompression and fusion at L4 5 today. He has been seen by medicine is appropriate. Cleared from medicine standpoint.
[~2021-08-02 08:41] MED LIST changes: -LACTATED RINGERS 1,000 ML IV SCH; +ceFAZolin 1,000 MG in SODIUM CHLORIDE 0.9% IRRIGATIO 1,000 ML IRRIGATION PRN
[2021-08-02] MEDS ORDERED: LIDOCAINE 1% (10MG/ML) FOR IV START INTRADERMA PRN (09:11)
[2021-08-02] MEDS ORDERED: MIDAZOLAM 2 MG/2 ML VIAL IV PRN (09:11)
[2021-08-02] MEDS ORDERED: ONDANSETRON 4 MG/2 ML VIAL IVP ONE (09:11)
[2021-08-02] MEDS ORDERED: DEXAMETHASONE SOD PHOSPHATE 4 MG/ML 1 ML VIAL IV ONE (09:11)
[2021-08-02] MEDS ORDERED: HYDROmorphone 0.5 MG/0.5 ML SYRINGE IVP PRN (09:11)
[2021-08-02] MEDS ORDERED: fentaNYL (PF) 50 MCG/ML 2 ML AMP IVP ONE (09:31)
[2021-08-02] MEDS: LACTATED RINGERS 1,000 ML IV SCH (09:31)
[2021-08-02] MEDS ORDERED: GLYCOPYRROLATE 0.2 MG/ML 2 ML VIAL ONE (10:15)
[2021-08-02] MEDS ORDERED: LIDOCAINE 1% INJ 10MG/ML (20 ML MDV) ONE (10:15)
[2021-08-02] MEDS ORDERED: PROPOFOL 10 MG/ML 20 ML VIAL IV ONE (10:15)
[2021-08-02] MEDS ORDERED: MIDAZOLAM 2 MG/2 ML VIAL ONE (10:15)
[2021-08-02] MEDS ORDERED: SODIUM CHLORIDE 0.9% (PF) 10 ML VIAL ONE (10:15)
[2021-08-02] MEDS ORDERED: ePHEDrine SULFATE/0.9% NACL/PF 50 MG/5 ML SYRINGE IV ONE (10:15)
[2021-08-02] MEDS ORDERED: ROCURONIUM 10 MG/ML (5 ML VIAL) IV ONE (10:15)
[2021-08-02] MEDS ORDERED: HYDROmorphone (PF) 1 MG/ML ONE (10:15)
[2021-08-02] MEDS ORDERED: fentaNYL (PF) 50 MCG/ML 2 ML AMP ONE (10:15)
[2021-08-02] MEDS ORDERED: SUCCINYLCHOLINE CHLORIDE 100 MG/5 ML SYR IV ONE (10:15)
[2021-08-02] MEDS ORDERED: KETAMINE 10 MG/ML 20 ML VIAL ONE (10:15)
[2021-08-02] MEDS ORDERED: NEOSTIGMINE 1 MG/ML 10 ML VIAL ONE (10:15)
[2021-08-02] MEDS ORDERED: PHENYLEPHRINE-0.9% NACL SYG 1,000 MCG/10 ML SYRINGE ONE (10:15)
[2021-08-02] MEDS ORDERED: LIDOCAINE 0.5%-EPI 1:200,000 50 ML VIAL SQ ONE (10:20)
[2021-08-02] MEDS ORDERED: GELATIN SPONGE,ABSORB (LARGE) 1 EACH SPONGE TOPICAL ONE (10:20)
[2021-08-02] MEDS ORDERED: THROMBIN (BOVINE) 5,000 UNIT VIAL TOPICAL ONE (10:20)
[2021-08-02] MEDS ORDERED: LACTATED RINGERS 1,000 ML IV ONE (11:11)
[2021-08-02] MEDS ORDERED: CYCLOBENZAPRINE 10 MG TAB PO PRN (12:42)
[2021-08-02] MEDS ORDERED: ONDANSETRON 4 MG/2 ML VIAL IVP PRN (12:42)
[2021-08-02] MEDS ORDERED: BENZOCAINE/MENTHOL LOZENG 1 EACH LOZENGE MUCOUS MEM PRN (12:42)
[2021-08-02] MEDS ORDERED: oxyCODONE-APAP 10-325MG 1 EACH TAB PO PRN (12:44)
--- NOTE | 2021-08-02 12:51 | P.OP ---
Date of Procedure: 08/02/21 Preoperative Diagnosis: Massive disc herniation L4 5, severe spinal stenosis L4 5, lower extremity radiculopathy, lower extremity weakness, low back pain, degenerative disc disease Postoperative Diagnosis: Same Anesthesia: GETA Pathology: none sent Condition: stable Disposition: PACU Description of Procedure: DESCRIPTION OF PROCEDURE(S): BRIEF OPERATIVE NOTE Preoperative Diagnosis: Massive disc herniation L4 5, severe spinal stenosis L4 5, lower extremity radiculopathy, lower extremity weakness, low back pain, degenerative disc disease Postoperative Diagnosis: Same Procedure: Laminectomy and decompression L4 [address] navigation aided Minimally invasive Posterior lateral decompression and facet fusion L4 5 Minimally invasive Transforaminal lumbar interbody fusion for a 360 fusion L4 5 Discectomy for decompression L4 5 Placement of interbody graft L4 5 Use of computer navigation for fusion Local autogenous bone grafting Aspiration of bone marrow from the vertebral body pedicle at L4 on the right Use of bone graft extenders Surgeon: Dr. Ball Optometrist/Practice Owner: Perry EDWARDS who is present throughout the entire the case persistence during positioning, dissection, exposure, visualization, and all crucial elements of the case as well as closure. Anesthesia: General anesthesia per Estimated blood loss: Approximately 100 mL Complications: None apparent Components implanted: K2M minimally invasive [place] pedicle screw system withscrews measuring 6.5 mm in diameter to rods one [place] interbody cage with 10 mL of osteo amp bio4 bone graft substitute and 30 mL of the BX bone fibers to supplement the local autogenous bone graft and bone marrow aspirate Disposition: To recovery room in good stable condition. OPERATIVE INDICATIONS The patient has had severe issues at their lower extremity in her lower back which has increased over the past several months and with significant worsening over the past several weeks. Over the past few months the patient had pain at their back and their lower extremities. A few weeks ago he started having severe worsening of his pain and radiculopathy with weakness in his lower extremities. The patient is having severe radicular symptoms at their lower extremity with weakness. The patient is having significant pain in their back. They are unable to obtain any comfort. He had interventional pain management and imaging and new imaging showed a massive disc herniation at L4 5 with severe central and bilateral foraminal stenosis which correlated well with his low back pain and lower extremity radiculopathy with weakness. We did aggressive conservative treatment with medications therapy and interventional pain management however thery were not having any relief. The patient also showed evidence of a listhesis with some dynamic instability. The patient has been through conservative treatment. With the complete disc loss and the amount of decompression necessary. That he would have instability would necessitate decompression and fusion at L4 5. We discussed various treatment options including surgery, and the patient wishes to proceed with surgery We discussed the risk, patient's alternatives and benefits of surgery including but not limited to, risk of bleeding risk of infection, risk of need for further surgery, risk of decreased, loss of motion, muscle function, malunion nonunion, hardware failure, nerve damage, paralysis, heart attack, blindness and . They understood issues with the current pandemic and the possibility of exposure. OPERATIVE SUMMARY After discussing all the risks, patient alternatives and benefits at length, the patient elected to proceed with surgical intervention, signed informed consent, and presented for their procedure. The patient was seen and examined in the preoperative holding area and the surgical site was marked. The patient was given antibiotics and brought to the operating room. The patient was sedated and intubated by anesthesia in standard fashion. The patient was positioned on to the operating room table in a prone position on the appropriate frame which was well-padded and well molded. We were careful to pad any bony prominences and pressure points. We were careful to maintain the patient's cervical spine and good neutral alignment and position throughout. The patient was prepped and draped in a normal standard fashion. An appropriate timeout and keystone protocol performed. We were able to proceed with the surgery. The local wound area was infiltrated with local anesthetic. Over the right iliac crest I was able to make small stab incisions and establish a guidepin screw fixation to the iliac crest 2. I was able place the computer referencing device over the guidepins to establish an appropriate reference point for the Ziem CT navigation. We then were able to place patient in an appropriate drape and do a navigation spin for visualization and 3-D reconstruction of the lumbar spine. I was able utilize C-arm guidance and navigation to establish appropriate position over the pedicles bilaterally at the appropriate levels at L4 5 . With the appropriate levels confirmed was able to make small incisions over the appropriate pedicle sites bilaterally. Utilizing the computer navigation device I was able to establish bony landmarks at the right iliac crest for a bony reference point for the navigation device. I was able to establish a Jamshidi needle over the lateral aspect of the pedicle and advanced the trocar into the pedicle being careful not to breech superiorly inferiorly medially or laterally using computer navigation device. Position was confirmed regularly with AP and lateral images on C-arm and with the computer navigation device at the appropriate levels bilaterally at L4 5. I was able to establish the trocar into the pedicle appropriately into the posterior aspect of the vertebral body bilaterally at the appropriate levels. This was done at each of the pedicle positions and each of the vertebrae. At the superior vertebrae of L4 on the right I was able to take approximately 25 mL of bone aspiration for use later in the case to supplement the allograft and autograft bone. I was able place the guidewire into the trocar and into the vertebral body appropriately under C-arm guidance. Dissection was taken down over the wire to the appropriate starting position for the screw placed. The appropriate length screw was chosen, threaded over the guidewire and screwed appropriately into the pedicle and vertebral body under C-arm guidance in excellent alignment and position with good bony purchase. This is done at each of the screw sites at the appropriate levels at L4 5.. With the screws intact I extended the incision to connect the screw hole sites on the on the left side where the disc herniation appeared to originate. I dissected down to establish access over the pars and lamina to the base of the spinous process. I was able to expose the facet joint. The capsule the facet was taken down and showed some facet arthrosis at the joint. I was able to use a combination of curettes and Kerrison rongeurs and a high-speed drill to take down the facet joint and do a facetectomy. I was able get excellent foraminal decompression and central decompression with undermining across midline to perform a laminectomy centrally and contralaterally. As able get good central decompression. The ligamentum flavum was taken down to further decompress centrally and at bilateral neural foramen. I was able to expose the disc space and visualize the traversing nerve root. There was obvious contortion of the nerve root and dura due to a massive disc herniation which I was able to expose. There was large extruded fragment which had migrated and I was able to mobilize. I was able to remove the disc herniation and multiple large fragments and extruded fragment and multiple large fragments. This gave excellent decompression at the area. The rent at the disc herniation was exposed and I was able to extend the annulotomy and remove further loose fragments of disc and severely degenerative and damage disc. I performed a complete discectomy with a combination of curettes and rasps and scrapers. I was able get good endplate preparation at the disc space. I sized for the appropriate size interbody spacer protecting the soft tissue and neural structures. The wound was copiously irrigated and suctioned dry. There is no evidence of any dural tear or leak. I was able to pack the disc space with local autogenous bone graft as well as a small amount of bone graft which was also placed into the interbody cage itself. Protecting the soft tissue structures and neural structures I was able place the interbody cage in good alignment and good position with good fit and fill at the interbody space at L4 5. Position was confirmed with C-arm guidance. Good hemostasis maintained. There is no evidence of any dural tear or leak. The wound was irrigated and suctioned dry. With the hardware intact, intraoperative C-arm imaging was again taken which showed good alignment and position of the hardware at the appropriate levels. We were then able to measure, contour and place the rods and appropriate hardware bilaterally at L4 5. I was able to place capcrews, tighten them down, and torque them with the torque screwdriver appropriately. With this intact I was able to place the local autogenous bone graft with additional bone graft enhancer as necessary into the posterior lateral gutters over the decorticated transverse processes and facet joints on the contralateral side. The remainder of the bone graft was placed over the facet joint on the contralateral side after taking down the facet joint capsule. With the bone graft intact, a stable construct, and good decompression at the appropriate levels, we were able to proceed with closure. Good hemostasis was maintained. There is no evidence of dural tear or leak. The fascia was closed for a watertight closure. he subcuticular tissue was closed with absorbable suture. The wound was cleaned and dried and dressed with the appropriate dressing. The drapes were broken down. The patient was gently rolled back onto their hospital bed being careful to maintain their cervical spine and good neutral alignment and position. They were woken up by anesthesia, extubated, and brought to the recovery room in good stable condition. The patient will be admitted to the hospital for appropriate postoperative care, medical management and monitoring. We will continue to follow them closely about the postoperative course.
--- NOTE | 2021-08-02 12:55 | XR ---
EXAM TYPE: LUMBAR SPINE X RAY SERIES COMPARISON: NONE HISTORY: Intraoperative images TECHNIQUE: 5 views are submitted. FINDINGS: Limited resolution images are submitted intraoperatively. There is apparent postsurgical change invol ving the lower lumbar spine. IMPRESSION: 1. Intraoperative postoperative changes.
--- NOTE | 2021-08-02 14:35 | FL ---
Fluoroscopy INDICATION: Pain FINDINGS: Fluoroscopy time: 0 seconds. Images obtained: 6. IMPRESSIONS: 1. Documentation of fluoroscopy.
[2021-08-02] MEDS: HYDROmorphone 1 MG/ML 1 ML SYRINGE IVP PRN ×3 (14:52→23:20)
--- NOTE | 2021-08-02 20:20 | P.CONS ---
History of Present Illness - Reason for Consult Consult date: 08/02/21 Medical management Requesting physician: Yancy Ball - Chief Complaint Back pain - History of Present Illness This is a very pleasant 70-year-old patient who follows Dr. Chhaya Olmos. Chronic stable medical conditions include COPD, hypertension, anxiety, nicotine dependence, insomnia. Patient has long-standing lower back pain. Was having worsening radiculopathy in both lower extremity more than the right leg than the left. Patient had massive disc herniation L4-L5 is severe spinal stenosis L4-L5 and lower extremity neuropathy EGD. Patient undergone laminectomy and decompression. Postprocedure no nausea vomiting. Did tolerate some supper. Denies any cardiac history. Resting in bed. Patient has passed urine. Review of systems: GEN.: None EYES: None HEENT: None NECK: None RESPIRATORY: Occasional wheezing CARDIOVASCULAR: None GASTROINTESTINAL: None GENITOURINARY: None MUSCULOSKELETAL: As above LYMPHATICS: None HEMATOLOGICAL: None PSYCHIATRY: [Anxiety NEUROLOGICAL: Trouble sleeping Past medical history to include: COPD, hypertension, insomnia, anxiety, L4-L5 herniated disc spinal stenosis radiculopathy Social history: Smokes less than half a pack a day for more than 40 years. Occasional marijuana. No alcohol. . 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 EYES: Pupils equal. Conjunctiva normal. HEENT: External appearance of nose and ears normal, oral cavity grossly normal. NECK: JVD not raised; masses not palpable. HEART: First and second heart sounds are normal; no edema. LUNGS: Respiratory rate normal; decreased breath sounds MUSCULAR skeletal: Evidence of OA in several joints. Dressing over the lumbar spine. ABDOMEN: Soft, nontender, liver spleen not palpable, no masses palpable. PSYCH: Alert and oriented x3; mood and affect normal. NEUROLOGICAL: Cranial nerves grossly intact; no facial asymmetry, power and sensation grossly intact. LYMPHATICS: No lymph nodes palpable in the axilla and neck INVESTIGATIONS, reviewed in the clinical context: [08/01/2021: WBC 10.1 hemoglobin 14.5 platelets 338 sodium 138 potassium 4.6 creatinine 1.19 Coronavirus [PCR]: Not detected Assessment and plan: -Massive disc herniation L4-L5, severe spinal stenosis L4-L5, bilateral lower extremity radiculopathy, but extremity weakness, low back pain, DJD followed by laminectomy and decompression L4-L5 Antibiotic prophylaxis with IV Ancef. 1 dose of IV dexamethasone. [place] when necessary. IV Dilaudid when necessary. -Chronic nicotine dependence, cigarettes smoker Patient was offered a nicotine patch is politely declined -COPD in a current smoker, controlled We will use albuterol when necessary -Essential hypertension Valsartan 80 mg by mouth daily -Primary osteoarthritis multiple joints bilaterally Pain medications as needed -Chronic insomnia And melatonin 3 mg daily at bedtime Care was discussed with the patient. Questions answered. Home medications resumed. Add melatonin. Activity as per Dr. Matta. Patient to follow up with Dr. olmos PCP upon discharge Thank you Dr. Ball Past Medical History Past Medical History: COPD, Hypertension Additional Past Medical History / Comment(s): Back pain. History of Any Multi-Drug Resistant Organisms: MRSA Year Discovered:: 05/29/17 MDRO Source:: Sputum Past Surgical History: No Surgical Hx Reported Additional Past Surgical History / Comment(s): Jaw surgery, bilateral cataracts removed. Past Anesthesia/Blood Transfusion Reactions: No Reported Reaction Additional Past Anesthesia/Blood Transfusion Reaction / Comm: no family problems Past Psychological History: Anxiety Smoking Status: Current every day smoker Past Alcohol Use History: None Reported Additional Past Alcohol Use History / Comment(s): Smokes 7-8 cigarettes per day has been smoking for 40+ yrs. Past Drug Use History: Marijuana Additional Drug Use History / Comment(s): Occasional Marijuana use. Aware no use 24 hrs prior to procedure. - Past Family History Mother Family Medical History: No Reported History Father Family Medical History: Myocardial Infarction (OR) Additional Family Medical History / Comment(s): of heart attack. Medications and Allergies Home Medications Medication Instructions Recorded Confirmed Type Valsartan [Diovan] 80 mg PO QAM 04/27/16 08/01/21 History oxyCODONE-APAP 10-325MG [Percocet 1 tab PO QID PRN 07/27/21 08/01/21 History 10-325 mg] Allergies Allergy/AdvReac Type Severity Reaction Status Date / Time No Known Allergies Allergy Verified 08/02/21 09:12 Physical Exam Vitals: Vital Signs Temp Pulse Pulse Pulse Resp BP Pulse Ox 08/02/21 16:40 64 143/72 94 L 08/02/21 15:30 62 141/85 91 L 08/02/21 14:30 62 168/72 90 L 08/02/21 14:00 97.6 F 63 18 155/62 93 L 08/02/21 13:39 81 16 142/86 98 08/02/21 13:24 75 18 130/57 98 08/02/21 13:09 65 16 134/58 96 08/02/21 12:54 97.0 F L 90 16 164/84 99 08/02/21 09:15 98 F 70 16 192/87 95 Intake and Output 08/02/21 08/02/21 08/02/21 06:59 14:59 22:59 Intake Total 1651 50 Output Total 610 200 Balance 1041 -150 Intake: IV 1651 Intake, IV Titration 50 Amount ceFAZolin 2 gm In Sodium 50 Chloride 0.9% 50 ml @ 100 mls/hr IVPB Q8H [facility] Rx#: [id number] Output: Urine 510 200 Estimated Blood Loss 100 Other: Weight 72.5 kg
[2021-08-02] MEDS ORDERED: MELATONIN 3 MG TABLET PO SCH (21:00)
[2021-08-03] MEDS: HYDROcodone/APAP 5-325MG 1 EACH TAB PO PRN (03:41)
[2021-08-03] MEDS: SODIUM CHLORIDE 0.9% 1,000 ML IV SCH ×2 (06:45→14:58)
[2021-08-03] MEDS: LACTATED RINGERS 1,000 ML IV SCH (07:27)
[2021-08-03] MEDS: VALSARTAN 80 MG TAB PO SCH (07:28)
[2021-08-03] MEDS: SENNOSIDES-DOCUSATE SODIUM 1 EACH TAB PO SCH (07:28)
[2021-08-03] MEDS: HYDROmorphone 0.5 MG/0.5 ML SYRINGE IVP PRN ×2 (07:28→19:08)
[2021-08-03] MEDS: TAMSULOSIN 0.4 MG CAP.ER.24H PO SCH (08:08)
--- NOTE | 2021-08-03 10:30 | P.PN ---
Progress Note - Text Progress Note Date: 08/03/21 Postoperative day #1 Patient is seen and examined today at bedside. The patient has some pain around the surgical site as expected. Pain is being controlled with medication. He says his legs are doing much better. He says the pain is significant improvement in his lower extremity. He hasn't been unable urinate on his own thus far this morning. He had to get straight cathed this morning. He has not been able to stand up yet physical therapy. Physical Exam Afebrile with stable vital signs Abdomen is soft nontender. Chest has good excursion deep and space expiration The incision site is clean dry and intact. No erythema there is no purulence. There is no active drainage Extremities have not had neurologic change from prior to surgery. He has sustained dorsal to plantar flexion and EHL intact at his lower extremities Calves and thighs were soft nontender without evidence of DVT. Assessment/Plan Postoperative day #1 status post minimally invasive decompression and fusion at L4 5 for his massive disc herniation with severe stenosis and radiculopathy Patient is progressing as expected from the surgery. We are happy with how his legs are doing thus far We will continue to increase the patient's mobilization with therapy. We will continue pain control with oral or IV medications. He is having some urinary retention likely due to some bladder distention from irritation of his Lamb. I would like to see if he is able to urinate when he is standing up or seated to see if that can help relax his bladder area if he is unable to do so he may have to have a Lamb placed overnight for some bladder rest. We'll continue to follow patient closely.
--- NOTE | 2021-08-03 13:25 | P.PN ---
Progress Note - Text Progress Note Date: 08/03/21 - Chief Complaint Back pain This is a very pleasant 70-year-old patient who follows Dr. Chhaya Olmos. Chronic stable medical conditions include COPD, hypertension, anxiety, nicotine dependence, insomnia. Patient has long-standing lower back pain. Was having worsening radiculopathy in both lower extremity more than the right leg than the left. Patient had massive disc herniation L4-L5 is severe spinal stenosis L4-L5 and lower extremity neuropathy EGD. Patient undergone laminectomy and decompression. Postprocedure no nausea vomiting. Did tolerate some supper. Denies any cardiac history. Resting in bed. Patient has passed urine. 08/03/2021: This morning patient had urinary retention. He will thousand cc was obtained after straight catheterization. I placed the patient on Flomax. Did tolerate some diet. Back pain is better controlled. No nausea vomiting. Review of systems: Was done for constitutional, cardiovascular, GI, pulmonary. relevant finding as above Active Medications Hydrocodone Bitart/Acetaminophen (Hydrocodone/Apap 5-325mg 1 Each Tab) 1 each PO Q4HR PRN PRN Reason: MODERATE Pain Stop: 09/01/21 12:43 Last Admin: 08/03/21 03:41 Dose: 1 each Documented by: Benzocaine/Menthol (Benzocaine/Menthol Lozeng 1 Each Lozenge) 1 each MUCOUS MEM Q4HR PRN PRN Reason: Sore Throat Stop: 09/01/21 12:43 Cyclobenzaprine HCl (Cyclobenzaprine 10 Mg Tab) 10 mg PO TID PRN PRN Reason: Muscle Spasm Stop: 09/01/21 12:43 Last Admin: 08/02/21 14:51 Dose: 10 mg Documented by: Hydromorphone HCl (Hydromorphone 0.5 Mg/0.5 Ml Syringe) 0.5 mg IVP Q5M PRN PRN Reason: Pain Control Stop: 09/01/21 09:12 Hydromorphone HCl (Hydromorphone 0.5 Mg/0.5 Ml Syringe) 0.5 mg IVP Q4HR PRN PRN Reason: Pain SCALE 1-5 Stop: 09/01/21 12:43 Last Admin: 08/03/21 07:28 Dose: 0.5 mg Documented by: Hydromorphone HCl (Hydromorphone 1 Mg/Ml 1 Ml Syringe) 1 mg IVP Q4HR PRN PRN Reason: Pain SCALE 6-10 Stop: 09/01/21 12:43 Last Admin: 08/02/21 23:20 Dose: 1 mg Documented by: Lactated Ringer's (Lactated Ringers) 1,000 mls @ 20 mls/hr IV .Q24H [facility] Stop: 09/01/21 09:12 Last Admin: 08/03/21 07:27 Dose: Not Given Documented by: Sodium Chloride (Saline 0.9%) 1,000 mls @ 75 mls/hr IV .[id number] [facility] Stop: 09/01/21 12:46 Last Admin: 08/03/21 06:45 Dose: Not Given Documented by: Lidocaine HCl (Lidocaine 1% (10mg/Ml) For Iv Start) 0.1 ml INTRADERMA PER PROTOCOL PRN PRN Reason: IV Start Stop: 09/01/21 09:12 Melatonin (Melatonin 3 Mg Tablet) 3 mg PO HS [facility] Last Admin: 08/02/21 20:55 Dose: 3 mg Documented by: Midazolam HCl (Midazolam 2 Mg/2 Ml Vial) 2 mg IV ONCE PRN PRN Reason: Anxiety Stop: 09/01/21 09:12 Ondansetron HCl (Ondansetron 4 Mg/2 Ml Vial) 4 mg IVP Q8HR PRN PRN Reason: Nausea And Vomiting Stop: 09/01/21 12:43 Oxycodone/Acetaminophen (Oxycodone-Apap 10-325mg 1 Each Tab) 1 each PO QID PRN PRN Reason: SEVERE Pain Stop: 09/01/21 12:45 Senna/Docusate Sodium (Sennosides-Docusate Sodium 1 Each Tab) 1 each PO DAILY [facility] Stop: 09/02/21 09:01 Last Admin: 08/03/21 07:28 Dose: 1 each Documented by: Tamsulosin HCl (Tamsulosin 0.4 Mg Cap.Er.24h) 0.4 mg PO -BRKFST [facility] Last Admin: 08/03/21 08:08 Dose: 0.4 mg Documented by: Valsartan (Valsartan 80 Mg Tab) 80 mg PO QAM [facility] Stop: 09/02/21 09:01 Last Admin: 08/03/21 07:28 Dose: 80 mg Documented by: Past medical history to include: COPD, hypertension, insomnia, anxiety, L4-L5 herniated disc spinal stenosis radiculopathy Social history: Smokes less than half a pack a day for more than 40 years. Occasional marijuana. No alcohol. . 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 EYES: Pupils equal. Conjunctiva normal. HEENT: External appearance of nose and ears normal, oral cavity grossly normal. NECK: JVD not raised; masses not palpable. HEART: First and second heart sounds are normal; no edema. LUNGS: Respiratory rate normal; decreased breath sounds MUSCULAR skeletal: Evidence of OA in several joints. Dressing over the lumbar spine. ABDOMEN: Soft, nontender, liver spleen not palpable, no masses palpable. PSYCH: Alert and oriented x3; mood and affect normal. INVESTIGATIONS, reviewed in the clinical context: [08/01/2021: WBC 10.1 hemoglobin 14.5 platelets 338 sodium 138 potassium 4.6 creatinine 1.19 Coronavirus [PCR]: Not detected Assessment and plan: -Massive disc herniation L4-L5, severe spinal stenosis L4-L5, bilateral lower extremity radiculopathy, but extremity weakness, low back pain, DJD followed by laminectomy and decompression L4-L5 Antibiotic prophylaxis with IV Ancef. 1 dose of IV dexamethasone. [place] when necessary. IV Dilaudid when necessary. -Chronic nicotine dependence, cigarettes smoker Patient was offered a nicotine patch is politely declined -COPD in a current smoker, controlled We will use albuterol when necessary -Essential hypertension Valsartan 80 mg by mouth daily -Primary osteoarthritis multiple joints bilaterally Pain medications as needed -Chronic insomnia Ambien 5 mg daily at bedtime -Acute urinary retention from bladder outflow obstruction Straight cath when necessary. Flomax 0.4 mg daily added. Flomax 0.4 mg daily added. Other medications to continue. Change melatonin to Ambien 5 mg daily at bedtime. Check labs Thank you Dr. Ball
[2021-08-03 16:04] LABS: Basophils % (A) 0 %; Eosinophils % (A) 0 %; HCT 37.4 % (39.0-53.0); HGB 12.2 gm/dL (13.0-17.5); Lymphocytes # (A) 1.1 k/uL (1.0-4.8); Lymphocytes % (A) 10 %; MCH 31.7 pg (25.0-35.0); MCHC 32.7 g/dL (31.0-37.0); MCV 96.8 fL (80.0-100.0); Mean Platelet Volume 7.9; Monocytes # (A) 0.6 k/uL (0-1.0); Monocytes % (A) 5 %; Neutrophils # (A) 9.7 k/uL (1.3-7.7); Neutrophils % (A) 84 %; Platelet Count 220 k/uL (150-450); RBC 3.86 m/uL (4.30-5.90); RDW 13.3 % (11.5-15.5); WBC 11.6 k/uL (3.8-10.6)
[2021-08-03 16:13] LABS: African American GFR (CKD) 84 (>60 ml/min/1.73 sqM); Anion Gap 5 mmol/L; Blood Urea Nitrogen 18 mg/dL (9-20); Calcium 8.5 mg/dL (8.4-10.2); Carbon Dioxide 25 mmol/L (22-30); Chloride 105 mmol/L (98-107); Glucose 113 mg/dL (74-99); Non-African American GFR(CKD) 73 (>60 ml/min/1.73 sqM); Potassium 3.8 mmol/L (3.5-5.1); Sodium 135 mmol/L (137-145)
[2021-08-03] MEDS ORDERED: ZOLPIDEM 5 MG TAB PO SCH (21:00)
[2021-08-04] MEDS: HYDROcodone/APAP 5-325MG 1 EACH TAB PO PRN ×2 (04:28→08:25)
[2021-08-04 05:10] VITALS: BP 162/92; PULSE 79; RESP 16; TEMP 98.2
[2021-08-04] MEDS: SODIUM CHLORIDE 0.9% 1,000 ML IV SCH (05:59)
[2021-08-04] MEDS: VALSARTAN 80 MG TAB PO SCH (08:16)
[2021-08-04] MEDS: SENNOSIDES-DOCUSATE SODIUM 1 EACH TAB PO SCH (08:16)
[2021-08-04] MEDS: TAMSULOSIN 0.4 MG CAP.ER.24H PO SCH (08:16)
--- NOTE | 2021-08-04 08:54 | P.DS ---
Providers Date of admission: 08/03/21 11:17 Expected date of discharge: 08/04/21 Attending physician: Yancy Ball Consults: 08/02/21 12:51 Consult Physician Routine Consulting Provider: Chhaya Olmos Consult Reason/Comments: Medical management Do you want consulting provider notified?: Yes 08/02/21 15:55 Consult Physician Routine Consulting Provider: Spenser Silverio Consult Reason/Comments: medical management Do you want consulting provider notified?: Yes Primary care physician: Chhaya Olmos - Discharge Diagnosis(es) (1) Herniated nucleus pulposus, L4-5 Current Visit: Yes Status: Acute (2) Low back pain Current Visit: Yes Status: Acute (3) Lower extremity weakness Current Visit: Yes Status: Acute (4) Lumbar degenerative disc disease Current Visit: Yes Status: Acute (5) Current smoker Current Visit: Yes Status: Acute (6) Essential hypertension Current Visit: Yes Status: Acute (7) Insomnia Current Visit: Yes Status: Acute (8) Acute urinary retention Current Visit: Yes Status: Acute (9) COPD (chronic obstructive pulmonary disease) Current Visit: No Status: Acute (10) Lumbar stenosis Current Visit: No Status: Acute (11) Radiculopathy with lower extremity symptoms Current Visit: No Status: Acute Hospital Course: This is a pleasant 70-year-old male who presented with L4-5 massive disc herniation with severe spinal canal stenosis, lower extremity radiculopathy with weakness, low back pain, and lumbar degenerative disc disease who failed outpatient conservative therapy. He was admitted for an L4-5 minimally invasive posterior lateral decompression and fusion with transforaminal lumbar interbody fusion. The patient tolerated the procedure well and did well postoperatively in regards to his lumbar spine. He feels his lower extremity leg pain has significantly improved. His pain is adequately controlled postoperatively. He has had some difficulty with urinary retention. A Lamb catheter was again placed yesterday and he was started on Flomax. We will plan to discontinue his Lamb catheter this morning. If he is able to void independently and he is cleared by medicine, we will plan for discharge home today. Patient states if he is able to void on his own he would like to be discharged home today. He has a walker at home which she may use to aid in ambulation as needed. Condition on day of discharge stable. Patient will be discharged home. Patient was cleared preoperatively for surgery. Patient currently denies any nausea, vomiting, fever, or chills. Patient is eating without difficulty. Patient may shower Optifoam dressing intact. Patient may remove Optifoam dressing in 3 days and shower without a dressing at that time. Patient should refrain from driving until at least after their first follow-up appointment in the office. Patient s hould avoid excessive bending, lifting, and twisting; no lifting greater than 10 pounds. Patient is currently under a pain contract with Dr. Bolaños. We discussed he may continue to take Percocet 10 mg/325 mg 1 tab 4 times a day as prescribed. We will not plan to prescribe narcotic medication at the time of discharge. Prescription for cyclobenzaprine 10 mg, one tablet 3 times per day, dispense # 60, as needed for muscle spasm is sent to his pharmacy. He should avoid anti-inflammatory medications over the next 6 weeks postoperatively. He may resume his other previously prescribed home medica tions. Patient will be cleared for discharge today if cleared by medicine and patient is able to void independently prior to discharge. We will plan for medicine to prescribe Flomax at the time of discharge. Patient's other medical diagnoses include COPD, current smoker, essential hypertension, chronic insomnia, and acute urinary retention. Physical Exam on day of discharge: Patient is awake, alert, and oriented 3 Vital signs stable Good chest excursion with deep inspiration and expiration Abdomen soft nontender No signs or symptoms of DVT; no calf pain Extensor hallucis longus, plantarflexion, and dorsiflexion positive sustained bilateral lower extremities Incision sites are clean, dry, and intact; no erythema, purulence, or signs of infection No pain with palpation around the surgical sites Optifoam dressing intact Procedures: L4-5 minimally invasive posterior lateral decompression and fusion with transforaminal lumbar interbody fusion Patient Condition at Discharge: Stable Plan - Discharge Summary Discharge Rx Participant: Yes New Discharge Prescriptions: New Cyclobenzaprine [Flexeril] 10 mg PO TID PRN #60 tab PRN Reason: Muscle Spasm No Action Valsartan [Diovan] 80 mg PO QAM oxyCODONE-APAP 10-325MG [Percocet 10-325 mg] 1 tab PO QID PRN PRN Reason: Pain Discharge Medication List Valsartan [Diovan] 80 mg PO QAM 04/27/16 [History] oxyCODONE-APAP 10-325MG [Percocet 10-325 mg] 1 tab PO QID PRN 07/27/21 [History] Cyclobenzaprine [Flexeril] 10 mg PO TID PRN #60 tab 08/04/21 [Rx] Follow up Appointment(s)/Referral(s): Perry Mosquera, ALEX [PHYSICIAN AUTOMATION AND CONTROLS MANAGER] - 2 Weeks (Patient may follow-up with Perry Mosquera PA-C or Dr. Farhan Ball at [facility] in 2-3 weeks following discharge. ) Activity/Diet/Wound Care/Special Instructions: 1. Patient may shower with Optifoam dressing intact. 2. Patient may remove Optifoam dressing in 3 days and shower without a dressing at that time. 3. Patient should refrain from driving until at least after their first follow- up appointment in the office. 4. Patient should avoid excessive bending, twisting, lifting; avoid overhead lifting; no lifting greater than 10 pounds 5. Patient may use walker at home to aid in ambulation as needed 6. Take medications as prescribed 7. Do not soak in tub Discharge Disposition: HOME SELF-CARE
--- NOTE | 2021-08-04 17:31 | P.PN ---
Progress Note - Text Progress Note Date: 08/04/21 - Chief Complaint Back pain This is a very pleasant 70-year-old patient who follows Dr. Chhaya Olmos. Chronic stable medical conditions include COPD, hypertension, anxiety, nicotine dependence, insomnia. Patient has long-standing lower back pain. Was having worsening radiculopathy in both lower extremity more than the right leg than the left. Patient had massive disc herniation L4-L5 is severe spinal stenosis L4-L5 and lower extremity neuropathy EGD. Patient undergone laminectomy and decompression. Postprocedure no nausea vomiting. Did tolerate some supper. Denies any cardiac history. Resting in bed. Patient has passed urine. 08/03/2021: This morning patient had urinary retention. He will thousand cc was obtained after straight catheterization. I placed the patient on Flomax. Did tolerate some diet. Back pain is better controlled. No nausea vomiting. 08/04/2021: Patient feeling better today. Oral intake good. Lamb catheter was discontinued this morning. Later patient didn't make urine. Will be discharged on Flomax. Care was discussed. Review of systems: Was done for constitutional, cardiovascular, GI, pulmonary. relevant finding as above Current medications reviewed in today's electronic records Past medical history to include: COPD, hypertension, insomnia, anxiety, L4-L5 herniated disc spinal stenosis radiculopathy Social history: Smokes less than half a pack a day for more than 40 years. Occasional marijuana. No alcohol. . 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 Conjunctiva normal. HEENT: External appearance of nose and ears normal, oral cavity grossly normal. NECK: JVD not raised; masses not palpable. HEART: First and second heart sounds are normal; no edema. LUNGS: Respiratory rate normal; decreased breath sounds MUSCULAR skeletal: Evidence of OA in several joints. Dressing over the lumbar spine. ABDOMEN: Soft, nontender, liver spleen not palpable, no masses palpable. Lamb discontinued PSYCH: Alert and oriented x3; mood and affect normal. INVESTIGATIONS, reviewed in the clinical context: 08/03/2021: WBC 11.6 hemoglobin 12.2 platelets 220 potassium 3.8 creatinine 1.03 [08/01/2021: WBC 10.1 hemoglobin 14.5 platelets 338 sodium 138 potassium 4.6 creatinine 1.19 Coronavirus [PCR]: Not detected Assessment and plan: -Massive disc herniation L4-L5, severe spinal stenosis L4-L5, bilateral lower extremity radiculopathy, but extremity weakness, low back pain, DJD followed by laminectomy and decompression L4-L5 Antibiotic prophylaxis with IV Ancef. 1 dose of IV dexamethasone. [place] when necessary. -Chronic nicotine dependence, cigarettes smoker Patient was offered a nicotine patch ; politely declined -COPD in a current smoker, controlled We will use albuterol when necessary -Essential hypertension Valsartan 80 mg by mouth daily -Primary osteoarthritis multiple joints bilaterally Pain medications as needed -Chronic insomnia Ambien 5 mg daily at bedtime -Acute urinary retention from bladder outflow obstruction/BPH Lamb catheter discontinue. Flomax 0.4 mg daily -BPH Flomax 0.4 mg daily Patient to continue current medication treatment plan. Discussed. Follow-up with Dr. Olmos upon discharge. Thank you Dr. Ball
== END 2021-08-04 12:31 | disposition home or self-care (01) ==
LOC: OR 08:41 → 5NMEDONC 12:54 → OR 08-03 11:17 → 5NMEDONC 08-03 11:17
PROVIDERS: ADMIT Orthopaedic Surgery Orthopaedic Surgery of the Spine; ATTEND Orthopaedic Surgery Orthopaedic Surgery of the Spine
DX: M51.16 Intervertebral disc disorders with radiculopathy, lumbar region (principal); Z20.822 Contact with and (suspected) exposure to COVID-19; F12.90 Cannabis use, unspecified, uncomplicated; F17.210 Nicotine dependence, cigarettes, uncomplicated; F41.9 Anxiety disorder, unspecified; F51.04 Psychophysiologic insomnia; I10 Essential (primary) hypertension; J44.9 Chronic obstructive pulmonary disease, unspecified; M15.9 Polyosteoarthritis, unspecified; M48.061 Spinal stenosis, lumbar region without neurogenic claudication; N32.0 Bladder-neck obstruction; N40.1 Benign prostatic hyperplasia with lower urinary tract symptoms; R33.8 Other retention of urine; Z79.899 Other long term (current) drug therapy; Z82.49 Family history of ischemic heart disease and other diseases of the circulatory system
CPT/HCPCS: 22633; 20936; 20931; 20930; 97530; 97162; 80048; 85025; 87635; 72100; G0378 ×2; C1713; C1762; J2250; J1100; J2710; J0690 ×3; J2405; J2001; J3010; J1170 ×2; J2370; J0330; J2704; 86850; 86900; 86901

== ENCOUNTER → 2022-03-20 | Outpatient (CLI) | payer MEDICARE, OTHER ==
--- NOTE | 2022-03-22 12:45 | US ---
EXAMINATION TYPE: US duplex aorta DATE OF EXAM: 03/21/2022 COMPARISON: 09/05/2020 CLINICAL HISTORY: 71-year-old male I71.4 AAA WITHOUT RUPTURE. TECHNIQUE: Multiple sonographic images of the abdominal aorta are obtained. FINDINGS: EXAM MEASUREMENTS: Abdominal Aorta: Proximal: 3.0 x 3.0cm (3.4 cm, previously) Mid: 3.3 x 3.9cm (3.3 cm, previously) Distal: 3.2 x 4.0cm (2.6 cm, previously) Right Iliac: 1.4 x 1.4cm Left Iliac: 1.4 x 1.3cm Agriculture Technician notes: Entire aorta appears aneurysmal with all measurements over 3.0cm There is atherosclerotic irregularity throughout. IMPRESSION: Diffusely aneurysmal abdominal aorta. There may have been interval enlargement of both mid and distal portions, currently measuring 3.9 cm (versus 3.3 cm, previously) and 4.0 cm (versus 2.6 cm, previous ly), respectively.
== END | disposition home or self-care (01) ==
LOC: RADUSWWP 08:18
PROVIDERS: ATTEND Family Medicine
DX: I71.4 Abdominal aortic aneurysm, without rupture (principal)
CPT/HCPCS: 93979

== ENCOUNTER → 2023-04-25 | Outpatient (CLI) | payer MEDICARE, OTHER ==
--- NOTE | 2023-04-25 08:22 | US ---
EXAMINATION TYPE: US duplex aorta DATE OF EXAM: 04/25/2023 COMPARISON: Aortic ultrasound 03/20/2022, 09/05/2020 CLINICAL INDICATION: Male, 72 years old with history of I71.40 AAA; Hx of AAA. HTN controlled with m eds. TECHNIQUE: Multiple sonographic images of the abdominal aorta are obtained. FINDINGS: EXAM MEASUREMENTS: Abdominal Aorta: Proximal: 2.8 x 3.0 cm , previously measured 3.0 x 3.0 cm. Mid: 2.8 x 2.4 cm , previously measured 3.3 x 3.9 cm. Distal: 3.4 x 5.1 cm , previous measured 3.2 x 4.0 cm Bifurcation: Right- 1.2 x 1.1 cm , previously measured 1.4 x 1.4 cm Left- 1.5 x 1.2 cm, previou sly measured 1.4 x 1.3 cm IT PROGRAM MANAGER NOTES: Distal AAA visualized. Atherosclerotic changes. IMPRESSION: Increased size of distal abdominal aortic aneurysm measuring up to 5.1 cm, previously measured up to 4.0 cm. Vascular surgery consultation is recommended.
== END | disposition home or self-care (01) ==
LOC: RADUSWWP 07:04
PROVIDERS: ATTEND Family Medicine
DX: I71.40 Abdominal aortic aneurysm, without rupture, unspecified (principal); I10 Essential (primary) hypertension; Z86.79 Personal history of other diseases of the circulatory system
CPT/HCPCS: 93979

== ENCOUNTER → 2023-11-18 | Outpatient (CLI) | payer MEDICARE, OTHER ==
--- NOTE | 2023-11-18 09:06 | CTL ---
EXAMINATION TYPE: CT Low Dose Lung DATE OF EXAM ORDERED: 11/18/2023 HISTORY: Tobacco use, with 50 pack-year history, current smoker. Lung cancer screening CT DLP: 89.[address] CTDI: 2.1 mGy Automated exposure control for dose reduction was used. SCREENING VISIT: First screening visit COMPARISON: Chest radiograph 08/01/2021, CTA chest 05/26/2017 TECHNIQUE: Low dose computed tomography scan was performed through the chest at 1 mm thick sections a nd reconstructed images in multiple planes at 1 mm and [address] DIAGNOSTIC QUALITY: Satisfactory FINDINGS: LUNG NODULES: LUNGS: Spiculated 1.5 x 1.2 cm nodule left upper lobe (series 4, image 70) with surrounding satellite nodules measuring up to 3.6 mm (series 4, image 54.) Left lower lobe 6.5 mm nodule (series 4, image 188). COPD: Severity: Mild Fibrosis: Severity: None Lymph nodes: Enlarged left axillary lymph nodes measuring up to 1.2 cm (series 3, image 29). Other findings: None RIGHT PLEURAL SPACE: Effusion: None Calcification: None Thickening: None Pneumothorax: None LEFT PLEURAL SPACE: Effusion: None Calcification: None Thickening: None Pneumothorax: None HEART: Heart Size: Normal Coronary Calcification: Small Pericardial Effusion: None OTHER FINDINGS: Upper abdomen: None Bony thorax: None Supraclavicular region: None Other: None IMPRESSION: Spiculated 1.5 x 1.2 cm nodule left upper lobe with surrounding satellite nodules measuri ng up to 3.6 mm. Left lower lobe 6.5 mm nodule. Enlarged left axillary lymph nodes measuring up to 1. [address] LUNG RAD AND CT CHEST RECOMMENDATION: Lung-Rad 4B or 4X Very Suspicious: Follow-up Chest CT with o r without contrast or PET/CT and/or tissue sampling. PET/CT may be used when there is a > 8 mm solid component. S Modifier (other clinically significant findings): None
== END | disposition home or self-care (01) ==
LOC: RADCTMAIN 08:07
PROVIDERS: ATTEND Family Medicine
DX: Z12.2 Encounter for screening for malignant neoplasm of respiratory organs (principal); F17.210 Nicotine dependence, cigarettes, uncomplicated; R91.8 Other nonspecific abnormal finding of lung field; R59.0 Localized enlarged lymph nodes
CPT/HCPCS: 71271

== ENCOUNTER 2023-12-19 13:04 | Day surgery (SDC) | payer MEDICARE, OTHER ==
[2023-12-17 15:07] VITALS: BMI 20.3
[~2023-12-19 13:04] MED LIST changes: +DEXAMETHASONE SOD PHOSPHATE 4 MG/ML 1 ML VIAL IV ONE; +HYDROmorphone 0.5 MG/0.5 ML SYRINGE IVP PRN; +LACTATED RINGERS 1,000 ML IV SCH; +LIDOCAINE 1% (10MG/ML) FOR IV START INTRADERMA PRN; +MIDAZOLAM 2 MG/2 ML VIAL IV PRN; +ONDANSETRON 4 MG/2 ML VIAL IVP ONE; -ceFAZolin 1,000 MG in SODIUM CHLORIDE 0.9% IRRIGATIO 1,000 ML IRRIGATION PRN
[2023-12-19] MEDS: LACTATED RINGERS 1,000 ML IV SCH (13:45)
--- NOTE | 2023-12-19 14:19 | CT ---
EXAMINATION TYPE: CT chest wo con DATE OF EXAM: 12/19/2023 COMPARISON: 05/26/2017 HISTORY: ion robot bronchoscopy CT DLP: 205.1 mGycm, Automated exposure control for dose reduction was used. CONTRAST: None TECHNIQUE: Axial images were obtained at 5 mm thick sections. Reconstructed images are reviewed on [employer] computer in the coronal plane. FINDINGS: Portion of the thyroid visualized is normal. There is a 1.4 x 0.9 cm nodular density with vascularity extending to this in the posterior left uppe r lobe. Series 4 image 64. This is a change from comparison 2017 Some strandiness in the posterior lateral left lung base. Diffuse peribronchial thickening is present bilaterally. No enlarged mediastinal or hilar adenopathy is evident. The ascending aorta diameter at the level o f the main pulmonary artery is 3.9 cm. The main pulmonary artery diameter at the bifurcation is 2.6 cm. Coronary artery calcifications present. Limited CT sections are obtained through the upper abdomen. Abdomen is essentially unremarkable. IMPRESSION: 1. Interval development of a mass in the left posterior upper lung field discussed above.
[2023-12-19] MEDS ORDERED: fentaNYL (PF) 50 MCG/ML 2 ML AMP ONE (14:24)
[2023-12-19] MEDS ORDERED: GLYCOPYRROLATE 0.2 MG/ML 2 ML VIAL ONE (14:24)
[2023-12-19] MEDS ORDERED: PROPOFOL 10 MG/ML 20 ML VIAL IV ONE (14:24)
[2023-12-19] MEDS ORDERED: LIDOCAINE 1% INJ 10MG/ML (20 ML MDV) ONE (14:24)
[2023-12-19] MEDS ORDERED: PHENYLEPHRINE 10 MG/ML VIAL ONE (14:24)
[2023-12-19] MEDS ORDERED: ePHEDrine 50 MG/ML 1 ML VIAL ONE (14:24)
[2023-12-19] MEDS ORDERED: SUCCINYLCHOLINE CHLORIDE 200 MG/10 ML VIAL IV ONE (14:24)
[2023-12-19] MEDS ORDERED: ROCURONIUM 10 MG/ML (5 ML VIAL) IV ONE (14:24)
[2023-12-19] MEDS ORDERED: NEOSTIGMINE 1 MG/ML 10 ML VIAL ONE (14:24)
--- NOTE | 2023-12-19 15:15 | P.PCN ---
Date of Procedure: 12/19/23 Operative Findings: Preoperative Diagnosis: Left upper lobe nodule, 15 mm Postoperative Diagnosis: Left upper lobe nodule, 15 mm Procedure(s) Performed: Flexible bronchoscopy Robotic-assisted bronchoscopy and addition to radial ultrasound evaluation of the left upper lobe pulmonary nodule Robotic-assisted test monitor needle aspirate, transbronchial biopsies, transbronchial brushing of the left upper lobe pulmonary nodule in addition to a bronchioloalveolar lavage Endobronchial ultrasound Anesthesia: GETA Surgeon: Annie Fitzpatrick Estimated Blood Loss (ml): 0 Pathology: other Condition: stable Disposition: same day Operative Findings: A physical exam was performed. Informed consent was obtained from the patient after explaining all the risks (pneumothorax, life threatening bleeding, infection and adverse effects due to medications), benefits and alternatives to the procedure which the patient appeared to understand and so stated. The patient was connected to the monitoring devices. General anesthesia was induced and the patient was intubated by anesthesia. A final timeout was performed and the procedure confirmed by the attending staff bronchoscopist. The bronchoscope was inserted and the airway examined. The airway examination was within normal limits. There was some limited secretions that were suctioned out without any major difficulties. The flexible bronchoscope was removed and the robotic bronchoscope was inserted. Registration was completed. I next guided the robotic bronchoscope using the navigation system into the Left upper lobe apical segment segment. Once in proper position, the bronchoscope was frozen. The radial EBUS probe was placed through the bronchoscope and confirmed abnormal u/s images vs normal lung. A needle was placed through the working channel and under fluoroscopic guidance, we sampled the area thought to have the mass twice. We then used a cloud biopsy pattern with ultrasound confirmation for 6 additional passes with the needle. I utilize a 21-gauge. U/S evaluation was then used to reconfirm location. Forceps were next introduced through working channel and extended the appropriate distance and 2 transbronchial biopsies were performed using fluoroscopic guidance. The u/s probe was then reinserted to confirm location. When confirmed this process was repeated for a total of 8 transbronchial biopsies. After that a brush was placed through the extendable working channel for 1 pass with fluoroscopic guidance. U/S evaluation was then used to confirm location. 40ml of saline was then instilled into the area of the lesion. The robotic bronchoscope was removed and the airway inspected with a flexible bronchoscope and 10 ml of effluent from the BAL was collected. The patient was then bronchoscope and intubated with an Olympus IT bronchoscope without difficutly. The airways were inspected and cleared of secretions and blood. Fluoroscopic check for pneumothorax was negative upon completion of the procedure. There was 0 ml blood loss with the procedure. FINDINGS: 1.The airways appeared normal 2 Successful navigation, ultrasonographic identification, and biopsies of left upper lobe pulmonary nodule 3.The radial ultrasound view was initially eccentric and later on concentric RECOMMENDATIONS: Await pathology and cytology results The referring physician will be alerted to the results when available. The patient was advised to follow up with the referring physician with the biopsy results Patient will be called with results.
[2023-12-19 15:30] VITALS: TEMP 97.2
[2023-12-19 16:02] VITALS: RESP 18
--- NOTE | 2023-12-19 16:09 | XR ---
EXAMINATION TYPE: XR chest 1V DATE OF EXAM: 12/19/2023 COMPARISON: CT earlier today HISTORY: 73-year-old male post bronchoscopic biopsy TECHNIQUE: Single frontal view of the chest is obtained. FINDINGS: Heart normal size. Hyperinflation. The known left upper lobe spiculated nodule is larger, likely due to some postbiopsy change such as lesional hemorrhage. No appreciable pneumothorax. Hyperi nflation. No other consolidation or pleural effusion. IMPRESSION: COPD. The known spiculated left upper lobe nodule is slightly larger, likely reflecting biopsy related change. No appreciable pneumothorax.
[2023-12-19 16:33] VITALS: BP 128/80; PULSE 75
--- NOTE | 2023-12-19 21:29 | FL ---
EXAMINATION TYPE: FL bronchoscopy DATE OF EXAM: 12/19/2023 FLUOROSCOPY Fluoroscopy time of 1 minute 37 seconds was used during Ion robotic bronchoscopic biopsy left upper l obe. 13 image/s document/s the procedure. 2.9566 Gycm2 DAP
== END 2023-12-19 16:38 | disposition home or self-care (01) ==
LOC: ORWHC2ENDO 13:04
PROVIDERS: ATTEND Internal Medicine Critical Care Medicine
DX: R91.1 Solitary pulmonary nodule (principal); J44.9 Chronic obstructive pulmonary disease, unspecified; I10 Essential (primary) hypertension; F17.210 Nicotine dependence, cigarettes, uncomplicated; F41.9 Anxiety disorder, unspecified; M19.90 Unspecified osteoarthritis, unspecified site; Z79.899 Other long term (current) drug therapy
CPT/HCPCS: 31652; 87798 ×3; 87496; 87498; 87529; 88108; 88305; 87502; 87634; 87070; 87205; 87116; 87102; 87206; 87635; 71045; 71250; 31629; 31623; 31624; J0330; J2710; J2001; J3010; J2704; J2371; S2900

== ENCOUNTER 2023-12-20 06:59 | Emergency (ER) | payer MEDICARE, OTHER ==
[2023-12-20 07:35] VITALS: TEMP 98.1
--- NOTE | 2023-12-20 07:38 | ED ---
Male Urogenital HPI - General Chief complaint: Urogenital Stated complaint: SOB, trouble urinating Time Seen by Provider: 12/20/23 07:06 Source: patient, RN notes reviewed Mode of arrival: ambulatory Limitations: no limitations - History of Present Illness Initial comments: 73-year-old male presents emergency department with chief complaint of unable to urinate. Patient states that he had a lung biopsy yesterday which she did anesthesia. He states that he has not been able to urinate since he states he only has a small amount of dribbling, pressure. Patient states he has never had a history of much prostate issues but he states he had a Lamb catheter in the past. Patient states he has pressure in his abdomen and flank region denies any vomiting. - Related Data Home Medications Medication Instructions Recorded Confirmed Valsartan [Diovan] 80 mg PO QAM 04/27/16 12/19/23 oxyCODONE-APAP 10-325MG [Percocet 1 tab PO QID PRN 07/27/21 12/19/23 10-325 mg] Previous Rx's Medication Instructions Recorded Sennosides-Docusate Sodium 1 each PO DAILY #30 tab 08/04/21 [Senokot-S] Tamsulosin [Flomax] 0.4 mg PO DAILY 30 Days #30 cap 08/04/21 Allergies Allergy/AdvReac Type Severity Reaction Status Date / Time No Known Allergies Allergy Verified 12/20/23 07:25 Review of Systems ROS Statement: Those systems with pertinent positive or pertinent negative responses have been documented in the HPI. ROS Other: All systems not noted in ROS Statement are negative. Past Medical History Past Medical History: COPD, Eye Disorder, Hypertension Additional Past Medical History / Comment(s): Cataracts, back pain History of Any Multi-Drug Resistant Organisms: MRSA Date of last positivie culture/infection: 05/29/17 MDRO Source:: Sputum Past Surgical History: No Surgical Hx Reported Additional Past Surgical History / Comment(s): Jaw surgery; bilateral cataracts removed Past Anesthesia/Blood Transfusion Reactions: No Reported Reaction Additional Past Anesthesia/Blood Transfusion Reaction / Comment(s): no family problems Past Psychological History: Anxiety Smoking Status: Current every day smoker Past Alcohol Use History: None Reported Past Drug Use History: Marijuana - Past Family History Mother Family Medical History: No Reported History Father Family Medical History: Myocardial Infarction ([place]) Additional Family Medical History / Comment(s): of heart attack. General Exam Limitations: no limitations General appearance: alert, in no apparent distress Head exam: Present: atraumatic, normocephalic, normal inspection Eye exam: Present: normal appearance, PERRL, EOMI. Absent: scleral icterus, conjunctival injection, periorbital swelling Respiratory exam: Present: normal lung sounds bilaterally. Absent: respiratory distress, wheezes, rales, rhonchi, stridor Cardiovascular Exam: Present: regular rate, normal rhythm, normal heart sounds. Absent: systolic murmur, diastolic murmur, rubs, gallop, clicks GI/Abdominal exam: Present: soft, tenderness, normal bowel sounds. Absent: distended, guarding, rebound, rigid Back exam: Absent: CVA tenderness (R), CVA tenderness (L) Neurological exam: Present: alert Course Vital Signs 12/20/23 12/20/23 07:23 08:47 Temperature 98.1 F 98.1 F Pulse Rate 89 80 Respiratory 20 18 Rate Blood Pressure 109/75 112/81 O2 Sat by Pulse 95 96 Oximetry Medical Decision Making - Medical Decision Making Was pt. sent in by a medical professional or institution (, PA, BATCH RECORDS CLERK, urgent care, hospital, or care home...) When possible be specific @ -No Did you speak to anyone other than the patient for history (EMS, parent, family, police, friend...)? What history was obtained from this source @ -No Did you review nursing and triage notes (agree or disagree)? Why? @ -I reviewed and agree with nursing and triage notes Were old charts reviewed (outside hosp., previous admission, EMS record, old EKG, old radiological studies, urgent care reports/EKG's, care home records)? Report findings @ -No old charts were reviewed Differential Diagnosis (chest pain, altered mental status, abdominal pain women, abdominal pain men, vaginal bleeding, weakness, fever, dyspnea, syncope, headache, dizziness, GI bleed, back pain, seizure, CVA, palpatations, mental health, musculoskeletal)? @ -[Urinary retention, UTI EKG interpreted by me (3pts min.). @ -None X-rays interpreted by me (1pt min.). @ -None done CT interpreted by me (1pt min.). @ -None done U/S interpreted by me (1pt. min.). @ -None done What testing was considered but not performed or refused? (CT, X-rays, U/S, labs)? Why? @ -None What meds were considered but not given or refused? Why? @ -None Did you discuss the management of the patient with other professionals (professionals i.e. Dr., PA, BATCH RECORDS CLERK, lab, RT, psych nurse, social economist, staff radiation therapist, teacher, branch officer, case checker)? Give summary @ -No Was smoking cessation discussed for >3mins.? @ -No Was critical care preformed (if so, how long)? @ -No Were there social determinants of health that impacted care today? How? (Homelessness, low income, unemployed, alcoholism, drug addiction, transportation, low edu. Level, literacy, decrease access to med. care, half-way, rehab)? @ -No Was there de-escalation of care discussed even if they declined (Discuss DNR or withdrawal of care, Hospice)? DNR status @ -No What co-morbidities impacted this encounter? (DM, HTN, Smoking, COPD, CAD, Canc er, CVA, ARF, Chemo, Hep., AIDS, mental health diagnosis, sleep apnea, morbid obesity)? @ -None Was patient admitted / discharged? Hospital course, mention meds given and route, prescriptions, significant lab abnormalities, going to OR and other pertinent info. @ -Patient presented for urinary retention Lamb catheter placed by RN. Patient had urinary retention related to anesthesia yesterday. Patient is discharged in stable condition return pressure discussed. Undiagnosed new problem with uncertain prognosis? @ -No Drug Therapy requiring intensive monitoring for toxicity (Heparin, Nitro, In sulin, Cardizem)? @ -No Were any procedures done? @ -No Diagnosis/symptom? @ -Urinary retention Acute, or Chronic, or Acute on Chronic? @ -[Acute Uncomplicated (without systemic symptoms) or Complicated (systemic symptoms)? @ -Uncomplicated Side effects of treatment? @ -No Exacerbation, Progression, or Severe Exacerbation? @ -No Poses a threat to life or bodily function? How? (Chest pain, [place], [place], pneumonia, PE, COPD, DKA, ARF, appy, cholecystitis, CVA, Diverticulitis, Homicidal, Suicidal, threat to staff... and all critical care pts) @ -No Disposition Clinical Impression: Urinary retention Disposition: HOME SELF-CARE Condition: Stable Instructions (If sedation given, give patient instructions): Lamb Catheter Placement and Care (ED) Additional Instructions: Please return to the Emergency Department if symptoms worsen or any other concerns. Is patient prescribed a controlled substance at d/c from ED?: No Referrals: Chhaya Olmos DO [Primary Care Provider] - 1-2 days Keyon Gutierrez MD [STAFF PHYSICIAN] - 1-2 days Time of Disposition: 08:15
[2023-12-20 08:55] VITALS: BP 112/81; PULSE 80; RESP 18
== END 2023-12-20 09:13 | disposition home or self-care (01) ==
LOC: EC 06:59
DX: R33.9 Retention of urine, unspecified (principal); J44.9 Chronic obstructive pulmonary disease, unspecified; I10 Essential (primary) hypertension; F17.200 Nicotine dependence, unspecified, uncomplicated; F12.90 Cannabis use, unspecified, uncomplicated; Z86.59 Personal history of other mental and behavioral disorders
CPT/HCPCS: 51702; 99283; 99285

== ENCOUNTER 2024-08-08 07:53 | Emergency (ER) | payer MEDICARE, OTHER ==
[2024-08-08 08:02] VITALS: TEMP 98.9
[2024-08-08] MEDS ORDERED: IPRATROPIUM-ALBUTEROL 3 ML NEB INHALATION STA (08:13)
--- NOTE | 2024-08-08 08:14 | ED ---
General Adult HPI - General Chief complaint: Upper Respiratory Infection Stated complaint: DORIAN Time Seen by Provider: 08/08/24 07:54 Source: patient, family Mode of arrival: ambulatory Limitations: no limitations - History of Present Illness Initial comments: Dictation was produced using [employer] dictation software. please excuse any grammatical, word or spelling errors. Chief Complaint: 73-year-old male presents to the emergency department with cough for couple days History of Present Illness: Patient 73-year-old male he has past medical history of COPD hypertension. States that he is here today for symptoms that he believes are secondary to pneumonia. For the past couple days he has been having cough, runny nose fever and chills. Denies any chest pain. Does complain of some mild shortness of breath. No obvious sick contacts. The ROS documented in this emergency department record has been reviewed and confirmed by me. Those systems with pertinent positive or negative responses have been documented in the HPI. All other systems are other negative and/or noncontributory. - Related Data Home Medications Medication Instructions Recorded Confirmed Valsartan [Diovan] 80 mg PO QAM 04/27/16 12/19/23 oxyCODONE-APAP 10-325MG [Percocet 1 tab PO QID PRN 07/27/21 12/19/23 10-325 mg] Previous Rx's Medication Instructions Recorded Sennosides-Docusate Sodium 1 each PO DAILY #30 tab 08/04/21 [Senokot-S] Tamsulosin [Flomax] 0.4 mg PO DAILY 30 Days #30 cap 08/04/21 Allergies Allergy/AdvReac Type Severity Reaction Status Date / Time No Known Allergies Allergy Verified 08/08/24 07:57 Review of Systems ROS Statement: Those systems with pertinent positive or pertinent negative responses have been documented in the HPI. ROS Other: All systems not noted in ROS Statement are negative. Past Medical History Past Medical History: COPD, Eye Disorder, Hypertension Additional Past Medical History / Comment(s): Cataracts, back pain History of Any Multi-Drug Resistant Organisms: MRSA Date of last positivie culture/infection: 05/29/17 MDRO Source:: Sputum Past Surgical History: No Surgical Hx Reported Additional Past Surgical History / Comment(s): Jaw surgery; bilateral cataracts removed Past Anesthesia/Blood Transfusion Reactions: No Reported Reaction Additional Past Anesthesia/Blood Transfusion Reaction / Comment(s): no family problems Past Psychological History: Anxiety Smoking Status: Current every day smoker Past Alcohol Use History: None Reported Past Drug Use History: Marijuana - Past Family History Mother Family Medical History: No Reported History Father Family Medical History: Myocardial Infarction ([place]) Additional Family Medical History / Comment(s): of heart attack. General Exam - General Exam Comments Initial Comments: PHYSICAL EXAM: General Impression: Alert and oriented x3, not in acute distress HEENT: Normocephalic atraumatic, extra-ocular movements intact, pupils equal and reactive to light bilaterally, mucous membranes moist. Cardiovascular: Heart regular rate and rhythm Chest: Able to complete full sentences, no retractions, no tachypnea, slight wheezing to the left posterior lung base Abdomen: abdomen soft, non-tender, non-distended, no organomegaly Musculoskeletal: Pulses present and equal in all extremities, no peripheral edema Motor: no focal deficits noted Neurological: CN II-XII grossly intact, no focal motor or sensory deficits noted Skin: Intact with no visualized rashes Psych: Normal affect and mood Limitations: no limitations Course Vital Signs 08/08/24 08/08/24 08/08/24 07:57 08:18 08:38 Temperature 98.9 F Pulse Rate 117 H 120 H Respiratory 20 20 20 Rate Blood Pressure 118/68 113/87 O2 Sat by Pulse 97 96 Oximetry 08/08/24 08/08/24 10:01 11:00 Temperature Pulse Rate 117 H 95 Respiratory 20 20 Rate Blood Pressure 101/79 112/71 O2 Sat by Pulse 92 L 96 Oximetry Medical Decision Making - Medical Decision Making Was pt. sent in by a medical professional or institution (, PA, CONTRACTING ANALYST, urgent care, hospital, or long-term...) When possible be specific @ -No Did you speak to anyone other than the patient for history (EMS, parent, family, police, friend...)? What history was obtained from this source @ -No Did you review nursing and triage notes (agree or disagree)? Why? @ -I reviewed and agree with nursing and triage notes Were old charts reviewed (outside hosp., previous admission, EMS record, old EKG, old radiological studies, urgent care reports/EKG's, long-term records)? Report findings @ -No old charts were reviewed Differential Diagnosis (chest pain, altered mental status, abdominal pain women, abdominal pain men, vaginal bleeding, musculoskeletal, weakness, fever, dyspnea, syncope, headache, dizziness, GI bleed, back pain, seizure, CVA, pa lpatations, mental health)? @ -Differential Dyspnea: Coronary syndrome, arrhythmia, tamponade, asthma, COPD, pulmonary embolism, pneumonia, pneumothorax, pulmonary effusion, anaphylaxis, diabetic ketoacidosis, flailed chest, pulmonary contusion, diaphragmatic rupture, anemia, neuromuscular, this is not meant to be an all-inclusive list. EKG interpreted by me (3pts min.). @ -None done X-rays interpreted by me (1pt min.). @ -Chest x-ray is nonacute CT interpreted by me (1pt min.). @ -None done U/S interpreted by me (1pt. min.). @ -None done What testing was considered but not performed or refused? (CT, X-rays, U/S, labs)? Why? @ -None What meds were considered but not given or refused? Why? @ -None Was smoking cessation discussed for >3mins.? @ -No Were there social determinants of health that impacted care today? How? (Homelessness, low income, unemployed, alcoholism, drug addiction, transportation, low edu. Level, literacy, decrease access to med. care, group home, rehab)? @ -No Was there de-escalation of care discussed even if they declined (Discuss DNR or withdrawal of care, Hospice)? DNR status @ -No What co-morbidities impacted this encounter? (DM, HTN, Smoking, COPD, CAD, Cancer, CVA, ARF, Chemo, Hep., AIDS, mental health diagnosis, sleep apnea, morbid obesity)? @ -None Was patient admitted / discharged? Hospital course, mention meds given and route, prescriptions, significant lab abnormalities, going to OR and other pertinent info. @ -73-year-old male presents emergency department chief complaint of dyspnea. Patient has URI type symptoms as well. CBC metabolic panel is unremarkable. Viral testing is positive for coronavirus. Chest x-ray nonacute. Patient nonhypoxic reevaluated bedside Parker 30 and found to be in stable condition. Patient given Decadron breathing treatment for his tobacco use. He however feels well is agreeable to discharge. Advise follow-up with PCP Did you discuss the management of the patient with other professionals (kvng [place] i.e. , PA, CONTRACTING ANALYST, lab, RT, psych nurse, manager social, ticket seller, teacher, general service officer, heel caser)? Give summary @ -No Was critical care preformed (if so, how long)? @ -No Undiagnosed new problem with uncertain prognosis? @ -No Drug Therapy requiring intensive monitoring for toxicity (Heparin, Nitro, Insulin, Cardizem)? @ -No Were any procedures done? @ -No Diagnosis/symptom? Acute, or Chronic, or Acute on Chronic? Uncomplicated (without systemic symptoms) or Complicated (systemic symptoms)? @ -Coronavirus Side effects of treatment? @ -No Exacerbation, Progression, or Severe Exacerbation? @ -No Poses a threat to life or bodily function? How? (Chest pain, [place], [place], pneumonia, PE, COPD, DKA, ARF, appy, cholecystitis, CVA, Diverticulitis, Homicidal, Suicidal, threat to staff... and all critical care pts) @ -No - Lab Data Result diagrams: 08/08/24 08:28 08/08/24 08:28 Lab Results 08/08/24 08/08/24 08/08/24 Range/Units 08:04 08:28 08:28 WBC 4.1 (3.8-10.6) k/uL RBC 4.28 L (4.30-5.90) m/uL Hgb 13.5 (13.0-17.5) gm/dL Hct 41.0 (39.0-53.0) % MCV 95.8 (80.0-100.0) fL MCH 31.6 (25.0-35.0) pg MCHC 33.0 (31.0-37.0) g/dL RDW 14.2 (11.5-15.5) % Plt Count 166 (150-450) k/uL MPV 7.7 Neutrophils % 78 % Lymphocytes % 11 % Monocytes % 8 % Eosinophils % 1 % Basophils % 0 % Neutrophils # 3.2 (1.3-7.7) k/uL Lymphocytes # 0.5 L (1.0-4.8) k/uL Monocytes # 0.3 (0-1.0) k/uL Eosinophils # 0.1 (0-0.7) k/uL Basophils # 0.0 (0-0.2) k/uL Sodium 137 (137-145) mmol/L Potassium 3.7 (3.5-5.1) mmol/L Chloride 106 (98-107) mmol/L Carbon Dioxide 24 (22-30) mmol/L Anion Gap 7 mmol/L BUN 14 (9-20) mg/dL Creatinine 1.06 (0.66-1.25) mg/dL Est GFR (CKD-EPI)AfAm 80 (>60 ml/min/1.73 sqM) Est GFR (CKD-EPI)NonAf 69 (>60 ml/min/1.73 sqM) Glucose 122 H (74-99) mg/dL Calcium 8.9 (8.4-10.2) mg/dL Influenza Type A (PCR) Not Detected (Not Detectd) Influenza Type B (PCR) Not Detected (Not Detectd) RSV (PCR) Not Detected (Not Detectd) SARS-CoV-2 (PCR) Detected A (Not Detectd) Disposition Clinical Impression: Coronavirus infection Disposition: HOME SELF-CARE Condition: Good Instructions (If sedation given, give patient instructions): Coronavirus Disease 2019 (COVID-19) Is patient prescribed a controlled substance at d/c from ED?: No Referrals: Chhaya Olmos DO [Primary Care Provider] - 1-2 days Time of Disposition: 11:32
[2024-08-08] MEDS: DEXAMETHASONE SOD PHOSPHATE 10 MG/ML 1 ML VIAL IVP STA (08:30)
[2024-08-08 08:46] LABS: Basophils % (A) 0 %; Eosinophils # (A) 0.1 k/uL (0-0.7); Eosinophils % (A) 1 %; HGB 13.5 gm/dL (13.0-17.5); Lymphocytes # (A) 0.5 k/uL (1.0-4.8); Lymphocytes % (A) 11 %; MCH 31.6 pg (25.0-35.0); MCV 95.8 fL (80.0-100.0); Mean Platelet Volume 7.7; Monocytes # (A) 0.3 k/uL (0-1.0); Monocytes % (A) 8 %; Neutrophils # (A) 3.2 k/uL (1.3-7.7); Neutrophils % (A) 78 %; Platelet Count 166 k/uL (150-450); RBC 4.28 m/uL (4.30-5.90); RDW 14.2 % (11.5-15.5); WBC 4.1 k/uL (3.8-10.6)
[2024-08-08 08:58] LABS: African American GFR (CKD) 80 (>60 ml/min/1.73 sqM); Anion Gap 7 mmol/L; Blood Urea Nitrogen 14 mg/dL (9-20); Calcium 8.9 mg/dL (8.4-10.2); Carbon Dioxide 24 mmol/L (22-30); Chloride 106 mmol/L (98-107); Glucose 122 mg/dL (74-99); Non-African American GFR(CKD) 69 (>60 ml/min/1.73 sqM); Potassium 3.7 mmol/L (3.5-5.1); Sodium 137 mmol/L (137-145)
[2024-08-08] MEDS: ALBUTEROL HFA INHALER INHALATION STA (09:42)
--- NOTE | 2024-08-08 10:36 | XR ---
EXAMINATION TYPE: XR chest 2V DATE OF EXAM: 08/08/2024 COMPARISON: 08/01/2021 HISTORY: URI TECHNIQUE: Frontal and lateral views of the chest are obtained. FINDINGS: There is hyperinflation of lungs, flattening of diaphragm in lung parenchymal lucency consistent with COPD, stable compared to previous. There is no airspace consolidation. There is no pleural effusion or pneumothorax. The heart and pulmonary vasculature are normal. The osseous structures are intact. IMPRESSION: 1. Stable marked COPD. 2. No acute cardiopulmonary disease. [facility], , 08/08/2024 10:34 AM
[2024-08-08 11:46] VITALS: BP 125/68; PULSE 68; RESP 16
== END 2024-08-08 11:46 | disposition home or self-care (01) ==
LOC: EC 07:53
CPT/HCPCS: 36415; 71046; 80048; 85025; 87636; 94640; 96374; 99285